=== PATIENT | male | born 1960 | race Caucasian/White ===

== ENCOUNTER 2018-05-09 19:46 | Outpatient (REF) | payer OTHER, SELFPAY ==
[2018-05-09 20:23] LABS: Bilirubin Negative (Negative); Blood Trace-intact (Negative); Clarity Clear; Glucose Negative (Negative); Ketones Negative (Negative); Leukocyte Esterase Negative (Negative); Nitrite Negative (Negative); Specific Gravity 1.025 (1.005-1.025); Urobilinogen 0.2 EU/dL (Up TO 0.2)
[2018-05-09 20:39] LABS: RBC 0-2 (0-2); WBC 0-2 HPF (0-5)
[2018-05-09 20:40] LABS: Bacteria Negative HPF (Negative); C & S Indicated? No; Casts Negative LPF (Negative); Crystals Negative HPF (Negative); Epithelial Cells Rare HPF (Negative); Mucus Negative (Negative)
== END 2018-05-09 20:06 ==
LOC: LBN 19:46
PROVIDERS: PCP Family Medicine; Visit Provider Nurse Practitioner Family
DX: K62.89 Other specified diseases of anus and rectum (principal)
CPT/HCPCS: 81003; 81015; 87086

== ENCOUNTER 2018-07-04 16:02 | Inpatient (IN) | payer OTHER, SELFPAY ==
[2018-07-04] VITALS (34 sets, daily range): BP systolic 93–130; BP diastolic 46–76; PULSE 68–122; RESP 11–30; TEMP 31–38.2; O2SAT 84–99
--- NOTE | 2018-07-04 07:05 | W.COLOREPORT ---
Date of service: 07/04/18 Time of Service: 12:13 Colonoscopy Report Date of procedure: 07/04/18 Pre-op diagnosis general: Colon Cancer screening Post-op diagnosis procedure note: other (Diverticulosis/ descending colon polyp/ ascending colon lipoma) Procedure: Colonoscopy with polypectomy with cold forceps Surgeon: Macey Luna Anesthesia proc note operative: MAC (Maryuri Fairchild CRNA) Estimated blood loss (mL): 3 Pathology: other (Descending colon polyp) Complications: None Disposition: same day Indications: Mr. Umaña is a pleasant 58 year old male who was seen in the office for a screening colonoscopy. Risks, benefits and complications have been reviewed. Complications include but are not limited to bleeding, pain, perforation, missed small lesion/polyp, sore throat, aspiration and adverse reaction to the medications. Questions were entertained and answered to their satisfaction and they wished to proceed. No guarantees were given or implied. Prep: Miralax/Dulcolax Procedure Start Time: 12:13 Procedure End Time: 12:42 Retraction Time: 19 Findings: Ascending colon lipoma Descending colon polyp Sigmoid diverticulosis Procedure Description: After informed consent was obtained the patient was taken to the procedure room and placed in a left decubitous position. Monitors were applied and a time out was done. The patients name, date of , procedure, allergies to medications and metal in their body was reviewed. The patient was then sedated. Once sedated and comfortable a rectal exam was done. External exam was normal. Internal exam revealed a normal sphincter tone and no palpable masses. The prostate was smooth. The scope was then introduced and retro-flexed. No internal hemorrhoids were identified. The scope was then advanced to the cecum without difficulty. The TI and appendiceal orifice were identified. The prep was adequate. The scope was then slowly retracted over 19 minutes back into the rectum. Polyps were removed in the descending colon. There was an ascending colon lipoma and there was mild sigmoid diverticulosis. The scope was removed and the patient was woken up and taken back to Same day surgery in stable condition. The patient tolerated the procedure well and there were no immediate complications. Follow up: The patient should follow up in 3-5 years unless they develop changes in bowel habits or other new gastrointestinal complaints.
--- NOTE | 2018-07-04 07:07 | W.PM.DSUDISC ---
Discharge Plan Disposition Patient Disposition: HOME Condition: Good Discharge Details Reason For Visit: Colon Cancer Screening Attending Provider: Macey Luna Primary Care Provider: Elena Bullock Home Meds and New Rx's Prescriptions: Continued Centrum Silver Ultra Men's 300-600-300 mcg tablet 1 tab PO DAILY RF: 0 Discharge Instructions Instructions: Colonoscopy (DC) Additional Instructions: Findings: 1 polyp Diverticulosis Follow up: 3-5 years Please call if you develop: fevers >101.5 Nausea or Vomiting Abdominal pain that is not transient DAY SURGERY UNIT POST COLONOSCOPY INSTRUCTIONS 1. Because there will be medication in your system for the next 24 hours, you may feel a little sleepy. Your coordination will be affected. Therefore: a. Do not drive or operate dangerous equipment for 24 hours. b. Do not drink alcohol beverages for 24 hours (not even beer). c. Plan to go home and rest for the day. 2. Generally there are no restrictions on your activity after a day or so has gone by, but you may feel a bit fatigued for a few days. 3 After you arrive home you may have a light meal and return to a normal diet as you can tolerate it without feeling sick to your stomach. 4. After surgery, you may feel pain or discomfort. This should be only transient, but if it persists please contact your doctor. 5. If there are any questions regarding the findings of your procedure, please feel free to contact your doctor. 6. If you are unable to contact your doctor with a problem, contact the hospital at [phone]. 7. Continue all your regular medications unless directed otherwise. I understand the above instructions and have no questions. Signature of Patient or Responsible Adult Escort Date/Time Name of Responsible Adult Escort Signature of Nurse Date/Time Activity:: Activity as Tolerated Diet:: High Fiber diet Discharge Orders Discharge Orders: Discharge Order (Routine); Ordered 07/04/18 Ordered By: Macey Luna DS: Diagnosis Discharge Diagnosis (1) S/P colonoscopy: Status: Acute (2) Colorectal polyps: Status: Acute (3) Diverticulosis: Status: Acute
[2018-07-04] MEDS: Lactated Ringers 1,000 ML 80 ML IV ×2 (09:50→15:48)
--- NOTE | 2018-07-04 12:38 | BOWEL_PTH ---
PATIENT: Zachery Whittaker LOC: ICU U#:[id number] AGE/SX: 58/M ROOM: ICU.222 RE07/04/[address]: Macey Luna MD : 1960 BED: A DIS: 07/05/2018 SPEC #: [id number] RECD: 07/04/18 17:58 STATUS: KALLIE REQ #: [id number] RACHEL: 07/04/18 12:[address]: Mcaey Luna DEPT: Surgical Specimen RECD BY: Jory Fink ENTERED: 07/04/18 17:58 SP TYPE: Bowel OTHR DR: CLAIRE Noble Tissues: 1 - BIOPSY BOWEL Procedures: GROSS AND MICRO LEVEL 4 Comments: [id number]
[2018-07-04] MEDS: Albuterol/Ipratropium 3 ML UPD VIAL (14:03)
--- NOTE | 2018-07-04 15:01 | DI.RAD_ITS ---
SYMPTOMS/DIAGNOSIS: HYPOXEMIA PORTABLE CHEST: There are no prior comparison exams. The heart size is normal. The lungs are suboptimally inflated. There is a left-sided infiltrate, denser at the lung base. The right lung is grossly clear. No effusions are visible. IMPRESSION: Left-sided infiltrate. The findings could represent aspiration pneumonia.
[2018-07-04 15:33] LABS: BE -2.8 mmol/L (-3-3); HCO3 22 mmol/L (22-28); pCO2 34 mmHg (34-47); pH 7.41 (7.35-7.45); pO2 59 mmHg (83-108); sO2 90 % (94-98); tCO2 19 mmol/L (22-29)
[2018-07-04 15:34] LABS: FIO2 Simple Mask %; FIO2L 9 L; Site Left Radial
[2018-07-04] MEDS: Hydrocortisone SOD SUC. 100 MG VIAL 150 MG IVP (15:35)
[2018-07-04] MEDS: LEVOFLOXACIN 500 MG/100 ML BAG 100 MG IVPB (15:48)
[2018-07-04] MEDS: Normal Saline Flush 10 ML SYR IV ×2 (16:00→22:57)
[2018-07-04] MEDS: MetroNIDAZOLE 500 MG/100 ML BAG 100 MG IVPB ×2 (16:21→22:39)
--- NOTE | 2018-07-04 16:26 | W.PM.HP.N ---
Date of service: 07/04/18 Time of Service: 16:26 Assessment and Plan (1) Postprocedural aspiration pneumonitis: Current visit: Yes Status: Acute P\\ Admit to ICU on high flow nasal canula Diet: regular Resp: Solumedrol, Flagyl and levaquin Duonebs and albuterol updrafts Activity as tolerated Appreciate the assistance of the hospitalist team with this patient. History of Present Illness Chief Complaint: hypoxemia Narrative: Mr. Umaña is a pleasant 58-year-old gentleman who came to the hospital today for a screening colonoscopy. Towards the end of his colonoscopy he started to cough and jaw thrust had to be done for him to breathe. Once he woke up from the propofol sedation he was coughing and his sats were in the 80s. He was taken to PACU and placed on a mask on 8 L of oxygen bringing his saturations into the high 80s low 90s. He was noted to be wheezing and so he was given an albuterol and DuoNeb treatment by the anesthesia provider. Patient continued to struggle to keep his saturations up he otherwise felt fine. He is not tachycardic. He has no known history of COPD, emphysema or asthma. Hospitalist was consulted. Patient was started on an incentive spirometer as well. Without much improvement in his saturation the decision was made to admit the patient. Review of Systems Constitutional Denies fever(s) Cardiovascular Denies chest pain, Denies chest pain at rest, Denies chest pain with activity, Denies rapid heart rate and Denies irregular heart rhythm Respiratory Reports as per HPI Gastrointestinal Reports system reviewed and no additional complaints, except as docu [facility] Medical History Diverticulosis (Acute) Colorectal polyps (Acute) Surgical History S/P colonoscopy (Acute ~07/04/18) Family History Mother No problems noted. Father Lung disease Sister Crohns disease Sister No problems noted. Brother No problems noted. Grandfather Heart disease Grandfather No problems noted. Grandmother No problems noted. Grandmother No problems noted. Social History Smoking/Tobacco Use Status: Never alcohol intake: current alcohol intake frequency: 0-2 drinks per day Alcohol type: beer details: up to 6 drinks on weekends substance use type: does not use Meds Home Medications Medication Instructions Recorded Confirmed Type [id number] acid 300 1 tab PO DAILY 05/09/18 07/04/18 History mcg-lycopene 600 mcg-lutein 300 mcg tablet Allergies Allergy/AdvReac Type Severity Reaction Status Date / Time amoxicillin trihydrate AdvReac Severe Jaundice Unverified 07/04/18 09:41 [From Augmentin] potassium clavulanate AdvReac Severe Jaundice Unverified 07/04/18 09:41 [From Augmentin] Exam Const General: cooperative, comfortable and no acute distress Orientation: alert and oriented x3 Resp Effort & Inspection: normal respiratory effort Auscultation: wheezes Cardio Rate: tachycardic Rhythm: regular rhythm Heart Sounds: no gallops, no murmurs and no rubs GI Inspection: normal to inspection Palpation: soft and nontender Results Labs : 07/04/18 16:05 07/04/18 16:05 Laboratory Results - last 24 hr 07/04/18 15:25 Sample Site Left radial pCO2 34 pO2 59 L O2 Saturation 90 L ABG pH 7.41 ABG HCO3 22 ABG Total CO2 19 L ABG Base Excess -2.8 Oxygen Liter Flow 9 FiO2 Simple mask Last Vital Signs Temp 98.6 F 07/04/18 15:25 Pulse 112 H 07/04/18 15:25 Resp 30 H 07/04/18 15:25 BP 107/52 L 07/04/18 15:25 Pulse Ox 93 L 07/04/18 16:10
--- NOTE | 2018-07-04 16:59 | W.MEDCONSULT ---
Date of service: 07/04/18 Time of Service: 17:00 Assessment and Plan (1) Acute respiratory failure with hypoxia: Current visit: Yes Status: Acute Due aspiration pneumonia/pneumonitis. I feel at this point the patient would do best with heated humidified high flow NC. Wean O2 as tolerated as we are treating pneumonia/pneumonitis (2) Postprocedural aspiration pneumonitis: Current visit: Yes Status: Acute Treat with levaquin + flagyl, IV steroids, nebs. (3) Alcohol abuse: Current visit: Yes Status: Chronic s/p IV Thiamine x1. Agree with banana bag. put on CIWA. (4) Pancytopenia: Current visit: Yes Status: Chronic Follows at [facility] Hem/onc. CBC is pending at this time. (5) DVT prophylaxis: Current visit: Yes Status: Acute Lovenox - may have to be d/c'ed if plts low History of Present Illness Chief Complaint: Low oxygen saturations post colonoscopy Narrative: Mr Umaña is a 58 year old male with PMHx of diverticulosis and colorectal ca who underwent colonoscopy today whom we were asked to see due to a post-procedural hypoxia. The patient was sedated with propofol for the procedure, not requiring intubation. His O2 sats post-procedure were in the 80's. There was a cough observed during procedure. He required 8 L of O2 by face mask to get his O2 sats to the 90's. He required several nebulizer treatments to stop wheezing. He denied feeling short of breath, but did feel cold. He is febrile. His CXR is showing L-sided aspiration pneumonia. Consults Consult date: 07/04/18 Requesting physician: Macey Luna Review of Systems Review of Systems All systems reviewed & are unremarkable except as noted in HPI and below (no leg edema) PFSH Medical History Diverticulosis (Acute) Colorectal polyps (Acute) Macrocytic anemia (Acute) Pancytopenia (Acute) Surgical History S/P colonoscopy (Acute ~07/04/18) Family History Mother No problems noted. Father Lung disease Sister Crohns disease Sister No problems noted. Brother No problems noted. Grandfather Heart disease Grandfather No problems noted. Grandmother No problems noted. Grandmother No problems noted. Social History Smoking/Tobacco Use Status: Never alcohol intake: current alcohol intake frequency: 0-2 drinks per day Alcohol type: beer details: up to 6 drinks on weekends substance use type: does not use Exam Narrative Exam Narrative: General: Obese male, seen in PACU, tremulous, covered in blankets Neurological: A&OX3, no focal deficits Psychiatric: appropriate speech pattern/content Skin: no bruising/rashes notes HEENT: EOMI, MMM, no JVD or goiter Cardiovascular: RRR, tachycardic, ?SONG Lungs: crackles at L base Gastrointestinal: Abdomen soft, nontender, nondistended Genitourinary: deferred Extremities: no edema, clubbing, or cyanosis of BLE's Results Last Vital Signs Temp 37.2 C 07/04/18 16:57 Pulse 112 H 07/04/18 16:57 Resp 30 H 07/04/18 16:57 BP 113/62 07/04/18 16:57 Pulse Ox 97 07/04/18 16:57 Labs : 07/04/18 16:05 07/04/18 16:05 Laboratory Results - last 24 hr 07/04/18 15:25 Sample Site Left radial pCO2 34 pO2 59 L O2 Saturation 90 L ABG pH 7.41 ABG HCO3 22 ABG Total CO2 19 L ABG Base Excess -2.8 Oxygen Liter Flow 9 FiO2 Simple mask Imaging Additional studies: CXR: Left-sided infiltrate. The findings could represent aspiration pneumonia.
--- NOTE | 2018-07-04 17:04 | MCONE_ITS ---
Date of service: 07/04/18 Time of Service: 17:00 Assessment and Plan (1) Acute respiratory failure with hypoxia: Current visit: Yes Status: Acute Due aspiration pneumonia/pneumonitis. I feel at this point the patient would do best with heated humidified high flow NC. Wean O2 as tolerated as we are treating pneumonia/pneumonitis (2) Postprocedural aspiration pneumonitis: Current visit: Yes Status: Acute Treat with levaquin + flagyl, IV steroids, nebs. (3) Alcohol abuse: Current visit: Yes Status: Chronic s/p IV Thiamine x1. Agree with banana bag. put on CIWA. (4) Pancytopenia: Current visit: Yes Status: Chronic Follows at [facility] Hem/onc. CBC is pending at this time. (5) DVT prophylaxis: Current visit: Yes Status: Acute Lovenox - may have to be d/c'ed if plts low History of Present Illness Chief Complaint: Low oxygen saturations post colonoscopy Narrative: Mr Umaña is a 58 year old male with PMHx of diverticulosis and colorectal ca who underwent colonoscopy today whom we were asked to see due to a post-procedural hypoxia. The patient was sedated with propofol for the procedure, not requiring intubation. His O2 sats post-procedure were in the 80's. There was a cough observed during procedure. He required 8 L of O2 by face mask to get his O2 sats to the 90's. He required several nebulizer treatments to stop wheezing. He denied feeling short of breath, but did feel cold. He is febr ile. His CXR is showing L-sided aspiration pneumonia. Consults Consult date: 07/04/18 Requesting physician: Macey Luna Review of Systems Review of Systems All systems reviewed & are unremarkable except as noted in HPI and below (no leg edema) PFSH Medical History Diverticulosis (Acute) Colorectal polyps (Acute) Macrocytic anemia (Acute) Pancytopenia (Acute) Surgical History S/P colonoscopy (Acute ~07/04/18) Family History Mother No problems noted. Father Lung disease Sister Crohns disease Sister No problems noted. Brother No problems noted. Grandfather Heart disease Grandfather No problems noted. Grandmother No problems noted. Grandmother No problems noted. Social History Smoking/Tobacco Use Status: Never alcohol intake: current alcohol intake frequency: 0-2 drinks per day Alcohol type: beer details: up to 6 drinks on weekends substance use type: does not use Exam Narrative Exam Narrative: General: Obese male, seen in PACU, tremulous, covered in blankets Neurological: A&OX3, no focal deficits Psychiatric: appropriate speech pattern/content Skin: no bruising/rashes notes HEENT: EOMI, MMM, no JVD or goiter Cardiovascular: RRR, tachycardic, ?SONG Lungs: crackles at L base Gastrointestinal: Abdomen soft, nontender, nondistended Genitourinary: deferred Extremities: no edema, clubbing, or cyanosis of BLE's Results Last Vital Signs Temp 37.2 C 07/04/18 16:57 Pulse 112 H 07/04/18 16:57 Resp 30 H 07/04/18 16:57 BP 113/62 07/04/18 16:57 Pulse Ox 97 07/04/18 16:57 Labs : 07/04/18 16:05 07/04/18 16:05 Laboratory Results - last 24 hr 07/04/18 15:25 Sample Site Left radial pCO2 34 pO2 59 L O2 Saturation 90 L ABG pH 7.41 ABG HCO3 22 ABG Total CO2 19 L ABG Base Excess -2.8 Oxygen Liter Flow 9 FiO2 Simple mask Imaging Additional studies: CXR: Left-sided infiltrate. The findings could represent aspiration pneumonia.
[2018-07-04] MEDS: THIAMINE 100 MG in Normal Saline 100 ML 200 MG IVPB (17:09)
[2018-07-04] MEDS: MAGNESIUM SULFATE 8.12 MEQ, MULTIVITAMIN 10 ML, THIAMINE 100 MG, FOLIC ACID 1 MG in Nor... 168.867 MG IV (17:19)
[2018-07-04 17:33] LABS: Lactate-non-spesis 3.5 mmol/l (0.6-1.4)
[2018-07-04 17:34] LABS: Abs Immature Grans 0.01 k/cumm (0.0-0.09); Absolute Basophil Count 0.01 k/cumm (0.0-0.2); Absolute Lymphocyte Count 0.26 k/cumm (1.2-3.4); Absolute Monocyte Count 0.46 k/cumm (0.11-0.7); Absolute Neutrophil Count 6.11 k/cumm (1.2-6.7); Basophils % 0.1; HCT 40.7 % (40.0-50.0); HGB 13.8 g/dL (13.5-17.5); Immature Grans % 0.1; Lymphocytes % 3.8; Mean Corp. HGB Concentration 33.9 g/dL (32.0-36.0); Mean Corpuscular Hemoglobin 33.3 pg (27.0-33.0); Mean Corpuscular Volume 98.3 fL (80-95); Mean Platelet Volume 10.2 fL (8.0-11.0); Monocytes % 6.7; Neutrophils % 89.3; Platelet Count 135 x1000/uL (130-400); RBC 4.14 m/cumm (4.50-6.00); RBC Distribution Width 13.4 % (11.8-14.1); White Blood Cell Count 6.85 k/cumm (4.4-10.8)
[2018-07-04] MEDS: Albuterol/Ipratropium 3 ML UPD VIAL UPD (19:14)
[2018-07-04] MEDS: Pantoprazole 40 MG VIAL IVP (22:39)
[2018-07-04] MEDS: methylPREDNISolone SUCC 125 MG VIAL 60 MG IVP (22:39)
[2018-07-05] VITALS (25 sets, daily range): BP systolic 92–129; BP diastolic 44–68; PULSE 63–93; RESP 2–24; TEMP 36.6–36.9; O2SAT 92–97
[2018-07-05 01:03] LABS: Anion Gap 14.6 mmol/L (3-11); BUN 17 mg/dL (7-18); CO2 21.4 mmol/L (21.0-32.0); CREATININE 1.12 mg/dL (0.70-1.30); Chloride 102 mmol/L (98-107); Glucose 153 mg/dL (70-100); Magnesium 1.4 mg/dL (1.8-2.4); Potassium 3.2 mmol/L (3.5-5.1); Sodium 138 mmol/L (136-145)
[2018-07-05 01:04] LABS: Troponin I < 0.02 ng/mL (0.00-0.06)
[2018-07-05] MEDS: Albuterol/Ipratropium 3 ML UPD VIAL UPD ×3 (03:07→11:48)
[2018-07-05] MEDS: Normal Saline Flush 10 ML SYR IV ×2 (03:08→13:46)
[2018-07-05] MEDS: methylPREDNISolone SUCC 125 MG VIAL 60 MG IVP ×3 (03:08→13:47)
[2018-07-05] MEDS: MetroNIDAZOLE 500 MG/100 ML BAG 100 MG IVPB ×2 (03:26→10:43)
[2018-07-05] MEDS: Lactated Ringers 1,000 ML 80 ML IV (05:11)
[2018-07-05 07:00] LABS: Abs Immature Grans 0.01 k/cumm (0.0-0.09); Absolute Lymphocyte Count 0.42 k/cumm (1.2-3.4); Absolute Monocyte Count 0.18 k/cumm (0.11-0.7); Absolute Neutrophil Count 9.96 k/cumm (1.2-6.7); HGB 12.8 g/dL (13.5-17.5); Immature Grans % 0.1; Mean Corp. HGB Concentration 33.7 g/dL (32.0-36.0); Mean Corpuscular Hemoglobin 33.2 pg (27.0-33.0); Mean Corpuscular Volume 98.7 fL (80-95); Mean Platelet Volume 10.2 fL (8.0-11.0); Monocytes % 1.7; Neutrophils % 94.2; Platelet Count 128 x1000/uL (130-400); RBC 3.85 m/cumm (4.50-6.00); RBC Distribution Width 13.3 % (11.8-14.1); White Blood Cell Count 10.57 k/cumm (4.4-10.8)
[2018-07-05 07:11] LABS: Anion Gap 8.9 mmol/L (3-11); BUN 14 mg/dL (7-18); CO2 25.1 mmol/L (21.0-32.0); Calcium 8.7 mg/dL (8.5-10.1); Chloride 104 mmol/L (98-107); Glucose 180 mg/dL (70-100); Magnesium 1.7 mg/dL (1.8-2.4); Potassium 3.7 mmol/L (3.5-5.1); Sodium 138 mmol/L (136-145)
[2018-07-05 07:49] LABS: BE 0.4 mmol/L (-3-3); HCO3 25 mmol/L (22-28); pCO2 36 mmHg (34-47); pH 7.44 (7.35-7.45); pO2 69 mmHg (83-108); sO2 94 % (94-98); tCO2 22 mmol/L (22-29)
[2018-07-05 07:50] LABS: FIO2L Nasal Cannula L; Site Left Radial
[2018-07-05 07:51] LABS: FIO2 28 %
--- NOTE | 2018-07-05 08:14 | DI.RAD_ITS ---
SYMPTOM/DIAGNOSIS: ASPIRATION PNEUMONITIS PORTABLE AP CHEST at 0805 hours: The examination is compared with radiograph obtained yesterday. The previously described left sided intrapulmonary infiltrates are again noted. There has been little interval change in comparison with yesterday's examination. Right lung remains clear. IMPRESSION: No gross interval change in left sided infiltrates.
--- NOTE | 2018-07-05 09:00 | W.PM.PROGNOT ---
Date of Service Date of service: 07/05/18 Time of Service: 08:00 Assessment and Plan (1) Postprocedural aspiration pneumonitis: Current visit: Yes Status: Acute P\\ Chest XRay- Pending Diet: regular Resp: Solumedrol, Flagyl and levaquin Duonebs and albuterol updrafts Currently on 1L of 02 with SP02 94%, will slowly wean down supplemental 02. Continue use of incentive spirometer Activity as tolerated. Encouraged sitting up in the chair and ambulating. Disposition- Possible D/C home later today Subjective Interval history since last seen: I am feeling pretty good today, even though I didn't sleep much. He reports that he has had mild coughing which has progressively improved over night. He has been using the incentive spirometer. Exam Const General: cooperative, healthy appearing and comfortable Orientation: alert and oriented x3 Resp Effort & Inspection: normal respiratory effort, no audible wheezes and cough (intermittent) Objective Objective Clinical Data: Abnormal lab results 07/04/18 07/04/18 07/04/18 Range/Units 15:25 17:22 17:22 RBC 4.14 L (4.50-6.00) m/cumm Hgb (13.5-17.5) g/dL Hct (40.0-50.0) % MCV 98.3 H (80-95) fL MCH 33.3 H (27.0-33.0) pg Plt Count (130-400) x1000/uL Absolute Neutrophils (1.2-6.7) k/cumm Absolute Lymphocytes 0.26 L (1.2-3.4) k/cumm pO2 59 L (83-108) mmHg O2 Saturation 90 L (94-98) % ABG Total CO2 19 L (22-29) mmol/L Potassium 3.2 L (3.5-5.1) mmol/L Anion Gap 14.6 H (3-11) mmol/L Glucose 153 H (70-100) mg/dL Lactate (0.6-1.4) mmol/l Magnesium 1.4 L (1.8-2.4) mg/dL 07/04/18 07/05/18 07/05/18 Range/Units 17:22 06:40 06:40 RBC 3.85 L (4.50-6.00) m/cumm Hgb 12.8 L (13.5-17.5) g/dL Hct 38.0 L (40.0-50.0) % MCV 98.7 H (80-95) fL MCH 33.2 H (27.0-33.0) pg Plt Count 128 L (130-400) x1000/uL Absolute Neutrophils 9.96 H (1.2-6.7) k/cumm Absolute Lymphocytes 0.42 L (1.2-3.4) k/cumm pO2 (83-108) mmHg O2 Saturation (94-98) % ABG Total CO2 (22-29) mmol/L Potassium (3.5-5.1) mmol/L Anion Gap (3-11) mmol/L Glucose 180 H (70-100) mg/dL Lactate 3.5 H (0.6-1.4) mmol/l Magnesium 1.7 L (1.8-2.4) mg/dL 07/05/18 Range/Units 07:30 RBC (4.50-6.00) m/cumm Hgb (13.5-17.5) g/dL Hct (40.0-50.0) % MCV (80-95) fL MCH (27.0-33.0) pg Plt Count (130-400) x1000/uL Absolute Neutrophils (1.2-6.7) k/cumm Absolute Lymphocytes (1.2-3.4) k/cumm pO2 69 L (83-108) mmHg O2 Saturation (94-98) % ABG Total CO2 (22-29) mmol/L Potassium (3.5-5.1) mmol/L Anion Gap (3-11) mmol/L Glucose (70-100) mg/dL Lactate (0.6-1.4) mmol/l Magnesium (1.8-2.4) mg/dL Vital Signs Temperature 37.2 C 07/04/18 23:00 Temperature Source Tympanic 07/04/18 23:00 Pulse 73 07/05/18 08:00 Pulse Rhythm Regular 07/04/18 09:25 Pulse 72 07/05/18 08:00 Respiratory Rate 22 07/05/18 08:00 Respiratory Effort Non-Labored 07/04/18 23:00 Respiratory Depth Normal 07/04/18 23:00 Respiratory Pattern Normal 07/04/18 23:00 Blood Pressure 118/56 L 07/05/18 08:00 Blood Pressure Mean 70 07/05/18 08:00 Pulse Oximetry 92 L 07/05/18 08:00 Respiratory End-tidal CO2 31 07/04/18 15:25 Oxygen Delivery Method Nasal Cannula 07/04/18 23:00 Oxygen Flow Rate 3 07/04/18 23:00 Fraction of Inspired Oxygen (FIO2) 42 07/04/18 18:00 Pain Level 0 07/04/18 23:00 Intake & Output 07/04/18 07/04/18 07/05/18 11:59 23:59 11:59 Intake Total 2291.2 / 2291.2 972 / 972 Output Total 600 / 600 450 / 450 Balance 1691.2 / 1691.2 522 / 522 Weight 85.275 kg 85.275 kg Intake: IV 2051.2 / 2051.2 972 / 972 Oral 240 / 240 Output: Urine 600 / 600 450 / 450 Other: Urine Color Light Izabel Light Izabel Urine Appearance Clear Clear Urine Odor None None Comment VOIDED IN URINAL Emesis Description None Voiding Methods Urinal Urinal Laboratory Results WBC 10.57 k/cumm (4.4-10.8) D 07/05/18 06:40 RBC 3.85 m/cumm (4.50-6.00) L 07/05/18 06:40 Hgb 12.8 g/dL (13.5-17.5) L 07/05/18 06:40 Hct 38.0 % (40.0-50.0) L 07/05/18 06:40 MCV 98.7 fL (80-95) H 07/05/18 06:40 MCH 33.2 pg (27.0-33.0) H 07/05/18 06:40 MCHC 33.7 g/dL (32.0-36.0) 07/05/18 06:40 RDW 13.3 % (11.8-14.1) 07/05/18 06:40 Plt Count 128 x1000/uL (130-400) L 07/05/18 06:40 MPV 10.2 fL (8.0-11.0) 07/05/18 06:40 Immature Gran % 0.1 07/05/18 06:40 Neutrophils % 94.2 07/05/18 06:40 Lymphocytes % 4.0 07/05/18 06:40 Monocytes % 1.7 07/05/18 06:40 Eosinophils % 0.0 07/05/18 06:40 Basophils % 0.0 07/05/18 06:40 Absolute Neutrophils 9.96 k/cumm (1.2-6.7) H 07/05/18 06:40 Absolute Lymphocytes 0.42 k/cumm (1.2-3.4) L 07/05/18 06:40 Absolute Monocytes 0.18 k/cumm (0.11-0.7) 07/05/18 06:40 Absolute Eosinophils 0.00 k/cumm (0.0-0.7) 07/05/18 06:40 Absolute Basophils 0.00 k/cumm (0.0-0.2) 07/05/18 06:40 Sample Site Left radial 07/05/18 07:30 pCO2 36 mmHg (34-47) 07/05/18 07:30 pO2 69 mmHg (83-108) L 07/05/18 07:30 O2 Saturation 94 % (94-98) 07/05/18 07:30 ABG pH 7.44 (7.35-7.45) 07/05/18 07:30 ABG HCO3 25 mmol/L (22-28) 07/05/18 07:30 ABG Total CO2 22 mmol/L (22-29) 07/05/18 07:30 ABG Base Excess 0.4 mmol/L (-3-3) 07/05/18 07:30 Oxygen Liter Flow Nasal cannula L 07/05/18 07:30 FiO2 28 % 07/05/18 07:30 Sodium 138 mmol/L (136-145) 07/05/18 06:40 Potassium 3.7 mmol/L (3.5-5.1) 07/05/18 06:40 Chloride 104 mmol/L (98-107) 07/05/18 06:40 Carbon Dioxide 25.1 mmol/L (21.0-32.0) 07/05/18 06:40 Anion Gap 8.9 mmol/L (3-11) 07/05/18 06:40 BUN 14 mg/dL (7-18) 07/05/18 06:40 Creatinine 0.90 mg/dL (0.70-1.30) 07/05/18 06:40 Estimated GFR/1.73 m2 >= 60.00 (mL/min/1.73m2) 07/05/18 06:40 Glucose 180 mg/dL (70-100) H 07/05/18 06:40 Lactate 3.5 mmol/l (0.6-1.4) H 07/04/18 17:22 Calcium 8.7 mg/dL (8.5-10.1) 07/05/18 06:40 Magnesium 1.7 mg/dL (1.8-2.4) L 07/05/18 06:40 Troponin I < 0.02 ng/mL (0.00-0.06) 07/04/18 17:22
--- NOTE | 2018-07-05 09:59 | PDOC.CMIN ---
Care Management Initial Assess REASON FOR HOSPITALIZATION:: Aspiration Pnemonitis PAST MEDICAL HISTORY/PAST SURGICAL HISTORY:: Diverticulosis and Colorectal cancer PREVIOUS FUNCTIONAL STATUS/SOCIAL/FAMILY SUPPORTS:: Zachery resides with his significant other, Julia in [place], [place]. 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 Zachery underwent colonoscopy yesterday and appears to have had a aspiration event resulting in post-procedural hypoxia. He was admitted due to continued low saturations, his chest xray showing L-sided aspiration pneumonia. Zachery at baseline is independent with all ADLs in the community. CURRENT FUNCTIONAL STATUS:: Zachery was sitting up in his chair, breathing normally on room air. He answered questions appropriately and shared no concerns at this time. Has patient been provided with information about the portal?: Yes CODE STATUS:: Full Code INSURANCE COVERAGE / FINANCIAL ISSUES:: [employer] CURRENT HOME/COMMUNITY SERVICES/EQUIPMENT:: No current services or equipment. PRIMARY CARE PHYSICIAN:: Elena Bullock POTENTIAL DISCHARGE NEEDS:: Follow up appointments. PATIENT/FAMILY EDUCATION NEEDS:: Review of discharge instructions, discuss Ask Me Three. ANTICIPATED BARRIERS TO DISCHARGE:: None identified. TRANSPORTATION:: Via private vehicle with his significant other, Julia. PLAN:: Zachery will discharge home when ready per MD. He will follow up with his PCP and plan of care as prescribed. No additional services anticpated at this time. He will transport via private vehicle with his significant other, Julia.
--- NOTE | 2018-07-05 10:32 | INITIAL_ITS ---
Care Management Initial Assess REASON FOR HOSPITALIZATION:: Aspiration Pnemonitis PAST MEDICAL HISTORY/PAST SURGICAL HISTORY:: Diverticulosis and Colorectal cancer PREVIOUS FUNCTIONAL STATUS/SOCIAL/FAMILY SUPPORTS:: Zachery resides with his significant other, Julia in [place], [place]. 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 Zachery underwent colonoscopy yesterday and appears to have had a aspiration event resulting in post-procedural hypoxia. He was admitted due to continued low saturations, his chest xray showing L-sided aspiration pneumonia. Zachery at baseline is independent with all ADLs in the community. CURRENT FUNCTIONAL STATUS:: Zachery was sitting up in his chair, breathing normally on room air. He answered questions appropriately and shared no concerns at this time. Has patient been provided with information about the portal?: Yes CODE STATUS:: Full Code INSURANCE COVERAGE / FINANCIAL ISSUES:: GISC/[employer] CURRENT HOME/COMMUNITY SERVICES/EQUIPMENT:: No current services or equipment. PRIMARY CARE PHYSICIAN:: Elena Bullock POTENTIAL DISCHARGE NEEDS:: Follow up appointments. PATIENT/FAMILY EDUCATION NEEDS:: Review of discharge instructions, discuss Ask Me Three. ANTICIPATED BARRIERS TO DISCHARGE:: None identified. TRANSPORTATION:: Via private vehicle with his significant other, Julia. PLAN:: Zachery will discharge home when ready per MD. He will follow up with his PCP and plan of care as prescribed. No additional services anticpated at this time. He will transport via private vehicle with his significant other, Julia.
--- NOTE | 2018-07-05 10:35 | PDOC.CMDIS ---
LACE Index Scoring Tool - Questions: Length of Stay (in days): 2 Acuity (Admit via E.D.?): No E.D. Visits: 0 - Answers: Total Score: 2 Risk of Readmission: Low Risk Care Management Discharge Reason for Hospitalization: Aspiration Pnemonitis Discharge Plan: Zachery will discharge home when ready per MD. He will follow up with his PCP and plan of care as prescribed. No additional services anticpated at this time. He will transport via private vehicle with his significant other, Julia. Patient/Family Education Needs: Review discharge instructions, discuss Ask Me Three.
[2018-07-05] MEDS: MAGNESIUM SULFATE 1 GM/100 ML BAG IVPB (10:56)
--- NOTE | 2018-07-05 11:24 | PHARADMIT ---
Admission Pharmacy Clinical Review ASPIRATION PNEUMONITIS Code Status Full Code Current Weight Wgt- 85.3 kg Renally Cleared and Narrow Therapeutic Index Meds CrCl~ 76 mL/min Meds-OK QTc Value / Action Taken NA BP Control, Fever BP- 110/58 Tmax- 37.2C Electrolytes reviewed Na- 138 K+3.7 Mag- 1.7 DVT Prophylaxis none Lovenox DC'd Opiate Usage / Scheduled Bowel Regimen Ordered No Yes Plt/SCr for Heparin / Enoxaparin Plts- 128 SCr- 0.90 INR for Warfarin NA H/H stable, WBC/Bands H&H- 12.8/38.0 WBC- 10.57 Antibiotic appropriateness Levaquin, Flagyl IV Cultures and Sensitivities Blood, Sputum-Pending Surgical ABX d/c within 24 hr NA DM control / Insulin Dosing BG- 180 Heart Failure (Check EF%) (PACO's, B-Block, Diuretics) none IV to PO Switch No Home Meds Reviewed Yes Home Meds Not Ordered Atarax, Naprosyn, Centrum Comments
--- NOTE | 2018-07-05 13:12 | W.PM.DS.N ---
Date of service: 07/05/18 Time of Service: 13:13 DS: Diagnosis Discharge Diagnosis (1) Postprocedural aspiration pneumonitis: Status: Acute Discharge Plan Disposition Patient Disposition: HOME Condition: Good Discharge Details Reason For Visit: ASPIRATION PNEUMONITIS Admit Date/Time: 07/04/18 16:02 Admit Provider: Macey Luna Attending Provider: Macey Luna [facility] Hospital Course: Patient was admitted for an aspiration event during a colonoscopy. Yesterday during the procedure patient had an episode of coughing and hypoxia requiring admission to the hospital. Patient had a initial chest x-ray that was indicative of an aspiration in the left lung and was placed in the ICU for his care. Patient received oxygen overnight with multiple use of his incentive spirometer. A medicine consult was obtained and he was continued on IV antibiotics as well as nebulizers and oxygen and steroids overnight. The patient this morning was much more comfortable with no signs of hypoxia or respiratory distress. Patient was on a nasal cannula with normal vital signs. In consultation with medicine we felt that he was okay for discharge home he was to continue on Levaquin for 3 more days and Flagyl he was to receive 40 of prednisone milligrams daily for the next 3 days and does not require O2 on ambulation will and will not require this at home. He was to continue with a nebulizer machine with DuoNeb's every 6 as needed. Patient is to follow-up in the office 1-2 weeks after discharge. Home Meds and New Rx's Prescriptions: New levofloxacin 500 mg tablet 500 mg PO DAILY Qty: 3 RF: 0 metronidazole 500 mg tablet 500 mg PO BID Qty: 6 RF: 0 prednisone 20 mg tablet 20 mg PO BID Qty: 6 RF: 0 nebulizers misc .ROUTE .MEDSUPPLY Qty: 1 RF: 0 ipratropium-albuterol 0.5 mg-3 mg(2.5 mg base)/3 mL solution for nebulization 3 ml IH QID Qty: 180 RF: 0 Continued Centrum Silver Ultra Men's 300-600-300 mcg tablet 1 tab PO DAILY RF: 0 Discharge Instructions Instructions: Colonoscopy (DC) Additional Instructions: Findings: 1 polyp Diverticulosis Follow up: 3-5 years Please call if you develop: fevers >101.5 Nausea or Vomiting Abdominal pain that is not transient DAY SURGERY UNIT POST COLONOSCOPY INSTRUCTIONS 1. Because there will be medication in your system for the next 24 hours, you may feel a little sleepy. Your coordination will be affected. Therefore: a. Do not drive or operate dangerous equipment for 24 hours. b. Do not drink alcohol beverages for 24 hours (not even beer). c. Plan to go home and rest for the day. 2. Generally there are no restrictions on your activity after a day or so has gone by, but you may feel a bit fatigued for a few days. 3 After you arrive home you may have a light meal and return to a normal diet as you can tolerate it without feeling sick to your stomach. 4. After surgery, you may feel pain or discomfort. This should be only transient, but if it persists please contact your doctor. 5. If there are any questions regarding the findings of your procedure, please feel free to contact your doctor. 6. If you are unable to contact your doctor with a problem, contact the hospital at [phone]. 7. Continue all your regular medications unless directed otherwise. I understand the above instructions and have no questions. Signature of Patient or Responsible Adult Escort Date/Time Name of Responsible Adult Escort Signature of Nurse Date/Time Referrals: Macey Luna MD [ [facility] STAFF PHYSICIAN] - Activity:: Activity as Tolerated Activity:: Activity as Tolerated Equipment/Supplies:: No Equipment Needed Diet:: High Fiber diet Discharge Orders Discharge Orders: Discharge Order (Routine); Ordered 07/05/18 Ordered By: Pineda Mclain III DS: Data Vitals/I&O Vitals and I&O: Vital Signs Temperature 37.2 C 07/04/18 23:00 Temperature Source Tympanic 07/04/18 23:00 Pulse 66 07/05/18 10:42 Pulse Rhythm Regular 07/04/18 09:25 Pulse 82 07/05/18 10:42 Respiratory Rate 24 07/05/18 10:42 Respiratory Effort Non-Labored 07/04/18 23:00 Respiratory Depth Normal 07/04/18 23:00 Respiratory Pattern Normal 07/04/18 23:00 Blood Pressure 110/58 L 07/05/18 10:42 Blood Pressure Mean 69 07/05/18 10:42 Pulse Oximetry 94 L 07/05/18 11:22 Respiratory End-tidal CO2 31 07/04/18 15:25 Oxygen Delivery Method Room Air 07/05/18 11:22 Oxygen Flow Rate 0 07/05/18 11:22 Fraction of Inspired Oxygen (FIO2) 42 07/04/18 18:00 Pain Level 0 07/04/18 23:00 Intake & Output 07/04/18 07/05/18 07/05/18 23:59 11:59 23:59 Intake Total 2591.2 / 2591.2 2007.333 / 2247.333 240 / 2247.333 Output Total 600 / 600 1325 / 1325 Balance 1990. / 1990. 682.333 / 922.333 240 / 922.333 Weight 85.275 kg Intake: IV 2050.2 / 2050.2 1407.333 / 1407.333 Oral 540 / 540 600 / 840 240 / 840 Output: Urine 600 / 600 1325 / 1325 Other: Urine Color Light Izabel Light Izabel Urine Appearance Clear Clear Urine Odor None None Comment VOIDED IN URINAL Emesis Description None Voiding Methods Urinal Urinal Labs on day of discharge: Labs from last 24 hours 07/05/18 07/05/18 07/05/18 07:30 06:40 06:40 WBC 10.57 D RBC 3.85 L Hgb 12.8 L Hct 38.0 L MCV 98.7 H MCH 33.2 H MCHC 33.7 RDW 13.3 Plt Count 128 L MPV 10.2 Immature Gran % 0.1 Neutrophils % 94.2 Lymphocytes % 4.0 Monocytes % 1.7 Eosinophils % 0.0 Basophils % 0.0 Absolute Neutrophils 9.96 H Absolute Lymphocytes 0.42 L Absolute Monocytes 0.18 Absolute Eosinophils 0.00 Absolute Basophils 0.00 Sample Site Left radial pCO2 36 pO2 69 L O2 Saturation 94 ABG pH 7.44 ABG HCO3 25 ABG Total CO2 22 ABG Base Excess 0.4 Oxygen Liter Flow Nasal cannula FiO2 28 Sodium 138 Potassium 3.7 Chloride 104 Carbon Dioxide 25.1 Anion Gap 8.9 BUN 14 Creatinine 0.90 Estimated GFR/1.73 m2 >= 60.00 Glucose 180 H Lactate Calcium 8.7 Magnesium 1.7 L Troponin I 07/04/18 07/04/18 07/04/18 17:22 17:22 17:22 WBC 6.85 RBC 4.14 L Hgb 13.8 Hct 40.7 MCV 98.3 H MCH 33.3 H MCHC 33.9 RDW 13.4 Plt Count 135 MPV 10.2 Immature Gran % 0.1 Neutrophils % 89.3 Lymphocytes % 3.8 Monocytes % 6.7 Eosinophils % 0.0 Basophils % 0.1 Absolute Neutrophils 6.11 Absolute Lymphocytes 0.26 L Absolute Monocytes 0.46 Absolute Eosinophils 0.00 Absolute Basophils 0.01 Sample Site pCO2 pO2 O2 Saturation ABG pH ABG HCO3 ABG Total CO2 ABG Base Excess Oxygen Liter Flow FiO2 Sodium 138 Potassium 3.2 L Chloride 102 Carbon Dioxide 21.4 Anion Gap 14.6 H BUN 17 Creatinine 1.12 Estimated GFR/1.73 m2 >= 60.00 Glucose 153 H Lactate 3.5 H Calcium 9.0 Magnesium 1.4 L Troponin I < 0.02 07/04/18 15:25 WBC RBC Hgb Hct MCV MCH MCHC RDW Plt Count MPV Immature Gran % Neutrophils % Lymphocytes % Monocytes % Eosinophils % Basophils % Absolute Neutrophils Absolute Lymphocytes Absolute Monocytes Absolute Eosinophils Absolute Basophils Sample Site Left radial pCO2 34 pO2 59 L O2 Saturation 90 L ABG pH 7.41 ABG HCO3 22 ABG Total CO2 19 L ABG Base Excess -2.8 Oxygen Liter Flow 9 FiO2 Simple mask Sodium Potassium Chloride Carbon Dioxide Anion Gap BUN Creatinine Estimated GFR/1.73 m2 Glucose Lactate Calcium Magnesium Troponin I 07/05/18 09:15 Sputum Sputum Culture - Pending Preliminary micro results at discharge 07/05/18 09:15 Sputum Culture - Pending Sputum FOR[facility] Medical History Diverticulosis (Acute) Colorectal polyps (Acute) Macrocytic anemia (Acute) Pancytopenia (Acute) Surgical History S/P colonoscopy (Acute ~07/04/18) Family History Mother No problems noted. Father Lung disease Sister Crohns disease Sister No problems noted. Brother No problems noted. Grandfather Heart disease Grandfather No problems noted. Grandmother No problems noted. Grandmother No problems noted. Social History Smoking and Tabacco status: Never alcohol intake: current alcohol intake frequency: 0-2 drinks per day Alcohol type: beer details: up to 6 drinks on weekends substance use type: does not use
[2018-07-05] MEDS: LEVOFLOXACIN 500 MG/100 ML BAG 100 MG IVPB (13:45)
--- NOTE | 2018-07-05 15:31 | PGE_ITS ---
Date of Service Date of service: 07/05/18 Time of Service: 11:45 Assessment and Plan (1) Postprocedural aspiration pneumonitis: Current visit: Yes Status: Acute Clinically better. I feel the patient is safe to be discharged home to complete a total of 5 days of levofloxacin, flagyl, prednisone. I also feel he could benefit from nebs at home. (2) Acute respiratory failure with hypoxia: Current visit: Yes Status: Resolved Due aspiration pneumonia/pneumonitis. No longer requiring oxygen (3) Alcohol abuse: Current visit: Yes Status: Chronic No evidence of alcohol withdrawal. I discussed the interactions of flagyl with alcohol with the patient - her verbalized understanding and states he is not going to drink when he arrives home. (4) Pancytopenia: Current visit: Yes Status: Chronic Follows at [facility] [place] Hem/onc. Pancytopenia is mild (5) DVT prophylaxis: Current visit: Yes Status: Acute Lovenox Subjective Interval history since last seen: The patient states he feels better today. Denies dizziness, chest pain, shortness of breath, nausea, vomiting. He is on room air - his ambulatory pulse ox on room air was in the 90's. Exam Narrative Exam Narrative: General: A&Ox3, NAD HEENT: EOMI, MMM Heart: RRR, no m/r/g Lungs: quiet crackles B bases, L>R GI: abdomen is soft, nontender, nondistended Extremities: trace edema BLE's Objective Objective Clinical Data: Abnormal lab results 07/04/18 07/04/18 07/04/18 Range/Units 15:25 17:22 17:22 RBC 4.14 L (4.50-6.00) m/cumm Hgb (13.5-17.5) g/dL Hct (40.0-50.0) % MCV 98.3 H (80-95) fL MCH 33.3 H (27.0-33.0) pg Plt Count (130-400) x1000/uL Absolute Neutrophils (1.2-6.7) k/cumm Absolute Lymphocytes 0.26 L (1.2-3.4) k/cumm pO2 59 L (83-108) mmHg O2 Saturation 90 L (94-98) % ABG Total CO2 19 L (22-29) mmol/L Potassium 3.2 L (3.5-5.1) mmol/L Anion Gap 14.6 H (3-11) mmol/L Glucose 153 H (70-100) mg/dL Lactate (0.6-1.4) mmol/l Magnesium 1.4 L (1.8-2.4) mg/dL 07/04/18 07/05/18 07/05/18 Range/Units 17:22 06:40 06:40 RBC 3.85 L (4.50-6.00) m/cumm Hgb 12.8 L (13.5-17.5) g/dL Hct 38.0 L (40.0-50.0) % MCV 98.7 H (80-95) fL MCH 33.2 H (27.0-33.0) pg Plt Count 128 L (130-400) x1000/uL Absolute Neutrophils 9.96 H (1.2-6.7) k/cumm Absolute Lymphocytes 0.42 L (1.2-3.4) k/cumm pO2 (83-108) mmHg O2 Saturation (94-98) % ABG Total CO2 (22-29) mmol/L Potassium (3.5-5.1) mmol/L Anion Gap (3-11) mmol/L Glucose 180 H (70-100) mg/dL Lactate 3.5 H (0.6-1.4) mmol/l Magnesium 1.7 L (1.8-2.4) mg/dL 07/05/18 Range/Units 07:30 RBC (4.50-6.00) m/cumm Hgb (13.5-17.5) g/dL Hct (40.0-50.0) % MCV (80-95) fL MCH (27.0-33.0) pg Plt Count (130-400) x1000/uL Absolute Neutrophils (1.2-6.7) k/cumm Absolute Lymphocytes (1.2-3.4) k/cumm pO2 69 L (83-108) mmHg O2 Saturation (94-98) % ABG Total CO2 (22-29) mmol/L Potassium (3.5-5.1) mmol/L Anion Gap (3-11) mmol/L Glucose (70-100) mg/dL Lactate (0.6-1.4) mmol/l Magnesium (1.8-2.4) mg/dL Vital Signs Temperature 36.6 C 07/05/18 12:45 Temperature Source Temporal Artery Scan 07/05/18 12:45 Pulse 66 07/05/18 10:42 Pulse Rhythm Regular 07/04/18 09:25 Pulse 82 07/05/18 10:42 Respiratory Rate 24 07/05/18 10:42 Respiratory Effort Non-Labored 07/05/18 12:45 Respiratory Depth Normal 07/05/18 12:45 Respiratory Pattern Normal 07/05/18 12:45 Blood Pressure 110/58 L 07/05/18 10:42 Blood Pressure Mean 69 07/05/18 10:42 Blood Pressure Position Sitting 07/05/18 12:45 Pulse Oximetry 93 L 07/05/18 12:45 Respiratory End-tidal CO2 31 07/04/18 15:25 Oxygen Delivery Method Room Air 07/05/18 12:45 Oxygen Flow Rate 0 07/05/18 12:45 Fraction of Inspired Oxygen (FIO2) 42 07/04/18 18:00 Pain Level 0 07/05/18 12:45 Intake & Output 07/04/18 07/05/18 07/05/18 23:59 11:59 23:59 Intake Total 2591.2 / 2591.2 2408.333 / 2868.333 460 / 2868.333 Output Total 600 / 600 1325 / 1325 Balance 1990.2 / 1990.2 1083.333 / 1543.333 460 / 1543.333 Weight 85.275 kg Intake: IV 2050.2 / 2050.2 1808.333 / 2028.333 220 / 202.333 Oral 540 / 540 600 / 840 240 / 840 Output: Urine 600 / 600 1325 / 1325 Other: Urine Color Light Izabel Light Izabel Urine Appearance Clear Clear Urine Odor None None Comment VOIDED IN URINAL Voids to urinal Emesis Description None Voiding Methods Urinal Urinal Laboratory Results WBC 10.57 k/cumm (4.4-10.8) D 07/05/18 06:40 RBC 3.85 m/cumm (4.50-6.00) L 07/05/18 06:40 Hgb 12.8 g/dL (13.5-17.5) L 07/05/18 06:40 Hct 38.0 % (40.0-50.0) L 07/05/18 06:40 MCV 98.7 fL (80-95) H 07/05/18 06:40 MCH 33.2 pg (27.0-33.0) H 07/05/18 06:40 MCHC 33.7 g/dL (32.0-36.0) 07/05/18 06:40 RDW 13.3 % (11.8-14.1) 07/05/18 06:40 Plt Count 128 x1000/uL (130-400) L 07/05/18 06:40 MPV 10.2 fL (8.0-11.0) 07/05/18 06:40 Immature Gran % 0.1 07/05/18 06:40 Neutrophils % 94.2 07/05/18 06:40 Lymphocytes % 4.0 07/05/18 06:40 Monocytes % 1.7 07/05/18 06:40 Eosinophils % 0.0 07/05/18 06:40 Basophils % 0.0 07/05/18 06:40 Absolute Neutrophils 9.96 k/cumm (1.2-6.7) H 07/05/18 06:40 Absolute Lymphocytes 0.42 k/cumm (1.2-3.4) L 07/05/18 06:40 Absolute Monocytes 0.18 k/cumm (0.11-0.7) 07/05/18 06:40 Absolute Eosinophils 0.00 k/cumm (0.0-0.7) 07/05/18 06:40 Absolute Basophils 0.00 k/cumm (0.0-0.2) 07/05/18 06:40 Sample Site Left radial 07/05/18 07:30 pCO2 36 mmHg (34-47) 07/05/18 07:30 pO2 69 mmHg (83-108) L 07/05/18 07:30 O2 Saturation 94 % (94-98) 07/05/18 07:30 ABG pH 7.44 (7.35-7.45) 07/05/18 07:30 ABG HCO3 25 mmol/L (22-28) 07/05/18 07:30 ABG Total CO2 22 mmol/L (22-29) 07/05/18 07:30 ABG Base Excess 0.4 mmol/L (-3-3) 07/05/18 07:30 Oxygen Liter Flow Nasal cannula L 07/05/18 07:30 FiO2 28 % 07/05/18 07:30 Sodium 138 mmol/L (136-145) 07/05/18 06:40 Potassium 3.7 mmol/L (3.5-5.1) 07/05/18 06:40 Chloride 104 mmol/L (98-107) 07/05/18 06:40 Carbon Dioxide 25.1 mmol/L (21.0-32.0) 07/05/18 06:40 Anion Gap 8.9 mmol/L (3-11) 07/05/18 06:40 BUN 14 mg/dL (7-18) 07/05/18 06:40 Creatinine 0.90 mg/dL (0.70-1.30) 07/05/18 06:40 Estimated GFR/1.73 m2 >= 60.00 (mL/min/1.73m2) 07/05/18 06:40 Glucose 180 mg/dL (70-100) H 07/05/18 06:40 Lactate 3.5 mmol/l (0.6-1.4) H 07/04/18 17:22 Calcium 8.7 mg/dL (8.5-10.1) 07/05/18 06:40 Magnesium 1.7 mg/dL (1.8-2.4) L 07/05/18 06:40 Troponin I < 0.02 ng/mL (0.00-0.06) 07/04/18 17:22 CXR: No gross interval change in left sided infiltrates.
== END 2018-07-05 15:45 | disposition home or self-care (01) | DRG 205 ==
LOC: SUR 16:52 → ICU 21:47
PROVIDERS: Internal Medicine; Admitting Provider Surgery; PCP Nurse Practitioner Family; Visit Provider Surgery
PROC: 0DJD8ZZ Inspection of Lower Intestinal Tract, Via Natural or Artificial Opening Endoscopic (ICD-10-PCS; CPT 45378; principal; 2018-07-04 10:30)
DX: J95.4 Chemical pneumonitis due to anesthesia (principal); J96.01 Acute respiratory failure with hypoxia; D61.818 Other pancytopenia; T41.0X5A Adverse effect of inhaled anesthetics, initial encounter; Y83.8 Other surgical procedures as the cause of abnormal reaction of the patient, or of later complication, without mention of misadventure at the time of the procedure; Z12.11 Encounter for screening for malignant neoplasm of colon; K57.30 Diverticulosis of large intestine without perforation or abscess without bleeding; D12.4 Benign neoplasm of descending colon; D17.5 Benign lipomatous neoplasm of intra-abdominal organs; F10.10 Alcohol abuse, uncomplicated; Z85.038 Personal history of other malignant neoplasm of large intestine
CPT/HCPCS: 45380; 36415; 80048; 82805; 82947; 84520; 87040; 88305; 99232; 99239; 99254; NC; 36600; 71045; 82310; 82374; 82435; 82565; 83605; 83735; 84132; 84295; 84484; 85025; 87070; 87205; 94640; J1720; J1956; J2930; J3475; J7620

== ENCOUNTER 2018-07-10 07:51 | Emergency (ER) | payer OTHER, SELFPAY ==
[2018-07-10] VITALS (42 sets, daily range): BP systolic 100–119; BP diastolic 63–69; PULSE 75–102; RESP 14–42; TEMP 36.7–37; O2SAT 91–96
--- NOTE | 2018-07-10 08:16 | ED.GENADUL_ITS ---
Discharge Plan Disposition Patient Disposition: HOME Condition: Stable Discharge Details Chief Complaint: RespSymp Clinical Impression: Pneumonia Primary Care Provider: Elena Bullock ED Provider: Torie Fernandez Home Meds and New Rx's Prescriptions: New levofloxacin [Levaquin] 750 mg tablet 750 mg PO DAILY Qty: 4 RF: 0 Continued nebulizers misc .ROUTE .MEDSUPPLY Qty: 1 RF: 0 ipratropium-albuterol 0.5 mg-3 mg(2.5 mg base)/3 mL solution for nebulization 3 ml IH QID Qty: 180 RF: 0 No Action prednisone 20 mg tablet 40 mg PO DAILY 5 Days Qty: 10 RF: 0 albuterol sulfate 90 mcg/actuation HFA aerosol inhaler 1 puff IH Q6H PRN (Reason: shortness of breath or wheezing) Qty: 8.5 RF: 4 azithromycin 250 mg tablet 250 mg PO DAILY 5 Days Qty: 6 RF: 0 Discharge Instructions Instructions: Pneumonia (ED) Additional Instructions: Please return immediately to the emergency department if you develop any new or worsening symptoms or if you become otherwise concerned. It is extremely important that you make an appointment to be seen as soon as possible by your primary care doctor in follow-up for this visit. Stand Alone Forms: Work Release Referrals: Elena Bullock NP [Primary Care Provider] - Discharge Data Discharge Date/Time-TO BE ENTERED AT DEPARTURE: 07/10/18 14:20 Medical Decision Making Emeterio Guzman is a 58-year-old man without history of major medical problems who was admitted to the ICU for 1 night last week for aspiration event during r outine colonoscopy, now presented to the emergency department with cough and shortness of breath since his discharge from the hospital on 07/05/18, also with sore throat. On exam patient is well and nontoxic appearing. Examination of his oropharynx is normal. Lungs are clear but with slightly decreased breath sounds throughout bilaterally. Concern for pneumonia versus influenza versus noncardiogenic pulmonary edema versus less likely PE, ACS. Plan for EKG, chest x-ray, screening labs, telemetry, IV fluid hydration. Will monitor and reassess. Patient reports feeling mildly improved after DuoNeb and fluids. Flu swab negative. Chest x-ray shows infiltrate improved from prior 07/04. D-dimer elevated, plan for CT chest. Walking about the emergency department without issue. CT chest shows pneumonia. As patient only received 3 days of Levaquin and is allergic to Augmentin, will plan for 5-day Levaquin course. Ambulatory pulse ox showed saturations 95%. Patient feels very well and would like to go home at this time. No indication for admission. I had a lengthy discussion with the patient regarding return to emergency department precautions, home care, and importance of outpatient follow-up with his primary care doctor. He is also scheduled to see Dr. Gomez in follow-up next week. Patient verbalizes understanding of the plan and is amenable. Medical Records Medical records reviewed: Yes I reviewed the patient's medical records. Lab Data Lab results reviewed: Yes I reviewed the patient's lab results. 07/10/18 09:17 Nasopharynx Influenza Types A,B Antigen - Final Laboratory Tests Range/Units 07/10/18 07/10/18 07/10/18 08:14 08:14 08:14 WBC (4.4-10.8) k/cumm 10.66 RBC (4.50-6.00) m/cumm 4.17 L Hgb (13.5-17.5) g/dL 13.8 Hct (40.0-50.0) % 41.2 MCV (80-95) fL 98.8 H MCH (27.0-33.0) pg 33.1 H MCHC (32.0-36.0) g/dL 33.5 RDW (11.8-14.1) % 13.5 Plt Count (130-400) x1000/uL 165 MPV (8.0-11.0) fL 10.3 Immature Gran % 1.3 Neutrophils % 76.0 Lymphocytes % 14.0 Monocytes % 5.5 Eosinophils % 3.1 Basophils % 0.1 Absolute Neutrophils (1.2-6.7) k/cumm 8.10 H Absolute Lymphocytes (1.2-3.4) k/cumm 1.49 Absolute Monocytes (0.11-0.7) k/cumm 0.59 Absolute Eosinophils (0.0-0.7) k/cumm 0.33 Absolute Basophils (0.0-0.2) k/cumm 0.01 D-Dimer (<500) ng/mlFEU 752 H Sodium (136-145) mmol/L 136 Potassium (3.5-5.1) mmol/L 3.8 Chloride (98-107) mmol/L 99 Carbon Dioxide (21.0-32.0) mmol/L 29.7 Anion Gap (3-11) mmol/L 7.3 BUN (7-18) mg/dL 20 H Creatinine (0.70-1.30) mg/dL 1.04 Estimated GFR/1.73 m2 (mL/min/1.73m2) >= 60.00 Glucose (70-100) mg/dL 120 H Calcium (8.5-10.1) mg/dL 9.3 Total Bilirubin (0.2-1.0) mg/dL 0.9 AST (15-37) U/L 20 ALT (12-78) U/L 27 Alkaline Phosphatase (46-116) U/L 74 Troponin I (0.00-0.06) ng/mL < 0.02 NT-Pro-B Natriuret Pep ( - 299) pg/mL Total Protein (6.4-8.2) g/dL 8.0 Albumin (3.4-5.0) g/dL 3.2 L Range/Units 07/10/18 08:14 WBC (4.4-10.8) k/cumm RBC (4.50-6.00) m/cumm Hgb (13.5-17.5) g/dL Hct (40.0-50.0) % MCV (80-95) fL MCH (27.0-33.0) pg MCHC (32.0-36.0) g/dL RDW (11.8-14.1) % Plt Count (130-400) x1000/uL MPV (8.0-11.0) fL Immature Gran % Neutrophils % Lymphocytes % Monocytes % Eosinophils % Basophils % Absolute Neutrophils (1.2-6.7) k/cumm Absolute Lymphocytes (1.2-3.4) k/cumm Absolute Monocytes (0.11-0.7) k/cumm Absolute Eosinophils (0.0-0.7) k/cumm Absolute Basophils (0.0-0.2) k/cumm D-Dimer (<500) ng/mlFEU Sodium (136-145) mmol/L Potassium (3.5-5.1) mmol/L Chloride (98-107) mmol/L Carbon Dioxide (21.0-32.0) mmol/L Anion Gap (3-11) mmol/L BUN (7-18) mg/dL Creatinine (0.70-1.30) mg/dL Estimated GFR/1.73 m2 (mL/min/1.73m2) Glucose (70-100) mg/dL Calcium (8.5-10.1) mg/dL Total Bilirubin (0.2-1.0) mg/dL AST (15-37) U/L ALT (12-78) U/L Alkaline Phosphatase (46-116) U/L Troponin I (0.00-0.06) ng/mL NT-Pro-B Natriuret Pep ( - 299) pg/mL 30 Total Protein (6.4-8.2) g/dL Albumin (3.4-5.0) g/dL ECG Data Attestation: I personally reviewed and interpreted this ECG (s) as follows: Interpretation: EKG shows sinus rhythm at 93 with normal axis, no STEMI, nondiagnostic EKG HPI General Mode of arrival: ambulatory . Date/Time Provider Initiated Documentation: 07/10/18 08:14 . Limitations to Documentation: no limitations . Information obtained by: patient, RN notes reviewed and old records reviewed . HPI Narrative: Zachery Umaña is a 58-year-old man without history of major medical problems presenting to the emergency department with cough and shortness of breath. Patient reports that on 07/04/18, he had a colonoscopy here to [facility]. He had an apparent aspiration event during his colonoscopy per record review, and he was admitted to the ICU for 1 night on 8 L of oxygen. Patient was discharged home on Levaquin, Flagyl, prednisone, and albuterol nebulizer. Patient reports that he was well and in his usual state of health prior to the procedure. He reports that since returning home from his admission on 07/05/18, he has been more tired than usual. He has also developed a gradually worsening sore throat and nonproductive cough. Patient thinks he had a fever in the past few days, but has not measured his temperature. He denies having any pain other than sore throat. He feels no shortness of breath at rest, but feels more short of breath than usual with exertion. He says he has had some mildly decreased p.o. intake secondary to his throat hurting. He has not had any difficulty swallowing. He denies vomiting, diarrhea, rash. 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 Patient reports he has finished all of his prescriptions that he left the hospital with except for his nebulizer. Related Data Home Medications Medication Instructions Recorded Confirmed ipratropium-albuterol 3 ml IH QID #180 ml 07/05/18 07/13/18 nebulizers #1 each 07/05/18 07/13/18 levofloxacin [Levaquin] 750 mg PO DAILY #4 tab 07/10/18 07/13/18 albuterol sulfate HFA 90 1 puff IH Q6H PRN #8.5 gm 07/13/18 07/13/18 mcg/actuation aerosol inhaler azithromycin 250 mg tablet 250 mg PO DAILY 5 Days #6 tab 07/13/18 07/13/18 prednisone 20 mg tablet 40 mg PO DAILY 5 Days #10 tab 07/13/18 07/13/18 Previous Rx's Medication Instructions Recorded ipratropium-albuterol 3 ml IH QID #180 ml 07/05/18 nebulizers #1 each 07/05/18 levofloxacin [Levaquin] 750 mg PO DAILY #4 tab 07/10/18 albuterol sulfate HFA 90 1 puff IH Q6H PRN #8.5 gm 07/13/18 mcg/actuation aerosol inhaler azithromycin 250 mg tablet 250 mg PO DAILY 5 Days #6 tab 07/13/18 prednisone 20 mg tablet 40 mg PO DAILY 5 Days #10 tab 07/13/18 Allergies Allergy/AdvReac Type Severity Reaction Status Date / Time amoxicillin trihydrate AdvReac Severe Jaundice Verified 07/13/18 09:11 [From Augmentin] potassium clavulanate AdvReac Severe Jaundice Verified 07/13/18 09:11 [From Augmentin] General Stated Complaint: RespSymp MARISA: 3 Review of Systems Review of Systems Constitutional: denies fevers Eyes: denies eye pain ENT: denies facial pain, dental pain, reports sore throat Cardiovascular: denies chest pain, edema Respiratory: reports SOB, cough GI: denies abdominal pain, vomiting, diarrhea : denies flank pain MSK: denies back pain, neck pain, arthralgias, myalgias Skin: denies rash Neuro: denies headaches, numbness, weakness PFSH Medical History Postprocedural aspiration pneumonitis (Acute) Macrocytic anemia (Chronic ~06/2017) Serrated adenoma of colon (Inactive ~06/2018) Sigmoid diverticulosis (Inactive ~06/2018) Acute respiratory failure with hypoxia (Resolved) Pancytopenia (Resolved ~06/2017) Surgical History S/P colonoscopy (Inactive 07/04/18) Social History Smoking and Tabacco status: Never alcohol intake: current alcohol intake frequency: 0-2 drinks per day Alcohol type: beer details: up to 6 drinks on weekends substance use type: does not use Exam Narrative Exam Narrative: Constitutional: well and [id number], pleasant, conversing normally HENT: head atraumatic/normocephalic/normal inspection, mucous membranes moist, normal oropharynx without erythema of the posterior pharynx, no edema or lesion of the oral cavity Eyes: conjunctiva normal, sclera normal, pupils 3mm b/l Neck: no stridor, normal ROM, trachea midline Chest: normal inspection Resp: normal work of breathing, LCTAB, somewhat decreased breath sounds throughout Cardio: normal rate, normal rhythm, no murmur appreciated GI: abdomen soft, non-tender, non-distended Back: normal inspection, no rash Skin: warm, dry, normal color, no rash Neuro: alert, not altered, grossly non-focal, normal tone Ext: no edema, no posterior calf tenderness to palpation Psych: normal mood, normal affect, normal behavior Course Vital Signs Temperature 36.7 C 07/10/18 07:57 Pulse 102 H 07/10/18 07:57 Respiratory Rate 16 07/10/18 07:57 Blood Pressure 119/66 07/10/18 07:57 Pulse Oximetry 94 L 07/10/18 07:57 Temperature 36.7 C 07/10/18 07:57 Temperature Source Temporal Artery Scan 07/10/18 07:57 Pulse 102 H 07/10/18 07:57 Respiratory Rate 16 07/10/18 07:57 Blood Pressure 119/66 07/10/18 07:57 Blood Pressure Position Sitting 07/10/18 07:57 Pulse Oximetry 94 L 07/10/18 07:57 Oxygen Delivery Method Room Air 07/10/18 07:57 Oxygen Flow Rate 0 07/10/18 07:57 Pain Level 0 07/10/18 07:57
--- NOTE | 2018-07-10 08:27 | DI.RAD_ITS ---
SYMPTOM/DIAGNOSIS: COUGH FRONTAL AND LATERAL CHEST: Comparison is made with 07/05/18. There is poor inspiration. The cardiac silhouette appears within normal limits as does the pulmonary vasculature. Since the prior examination, there has been significant improvement in the infiltrate in the left lung with residual infiltrates seen in the left mid and lower lobe. The right lung appears generally clear. No effusions or pneumothoraces are identified. Degenerative changes are seen in the spine. IMPRESSION: Persistent but improved infiltrates in the left lung.
[2018-07-10] MEDS: Normal Saline Flush 10 ML SYR IVP (08:36)
[2018-07-10] MEDS: Albuterol/Ipratropium 3 ML UPD VIAL UPD (08:41)
[2018-07-10] MEDS: Normal Saline 500 ML IV (08:42)
[2018-07-10 08:57] LABS: Abs Immature Grans 0.14 k/cumm (0.0-0.09); Absolute Basophil Count 0.01 k/cumm (0.0-0.2); Absolute Eosinophil Count 0.33 k/cumm (0.0-0.7); Absolute Lymphocyte Count 1.49 k/cumm (1.2-3.4); Absolute Monocyte Count 0.59 k/cumm (0.11-0.7); Basophils % 0.1; Eosinophils % 3.1; HCT 41.2 % (40.0-50.0); HGB 13.8 g/dL (13.5-17.5); Immature Grans % 1.3; Mean Corp. HGB Concentration 33.5 g/dL (32.0-36.0); Mean Corpuscular Hemoglobin 33.1 pg (27.0-33.0); Mean Corpuscular Volume 98.8 fL (80-95); Mean Platelet Volume 10.3 fL (8.0-11.0); Monocytes % 5.5; Platelet Count 165 x1000/uL (130-400); RBC 4.17 m/cumm (4.50-6.00); RBC Distribution Width 13.5 % (11.8-14.1); White Blood Cell Count 10.66 k/cumm (4.4-10.8)
[2018-07-10 09:17] LABS: ALT 27 U/L (12-78); AST 20 U/L (15-37); Albumin 3.2 g/dL (3.4-5.0); Alkaline Phosphatase 74 U/L (46-116); Anion Gap 7.3 mmol/L (3-11); BUN 20 mg/dL (7-18); Bilirubin, Total 0.9 mg/dL (0.2-1.0); CO2 29.7 mmol/L (21.0-32.0); CREATININE 1.04 mg/dL (0.70-1.30); Calcium 9.3 mg/dL (8.5-10.1); Chloride 99 mmol/L (98-107); Glucose 120 mg/dL (70-100); Potassium 3.8 mmol/L (3.5-5.1); Sodium 136 mmol/L (136-145)
[2018-07-10 09:18] LABS: Troponin I < 0.02 ng/mL (0.00-0.06)
[2018-07-10 09:26] LABS: NT-proBNP 30 pg/mL
[2018-07-10 09:27] LABS: D-Dimer 752 ng/mlFEU (<500)
--- NOTE | 2018-07-10 10:24 | DI.CT_ITS ---
SYMPTOM/DIAGNOSIS: SOB, COUGH, ASPIRATION EVENT PE CHEST CT: CT angiography was performed with multi slice acquisition and multi planar and 3D reconstruction. CT scan of the chest was performed according to the pulmonary embolus protocol. There is no evidence of a pulmonary embolus. The thoracic aorta is of normal caliber. No aneurysm or dissection is present. Heart size is within normal limits. No significant pericardial effusion is seen. No evidence of right ventricular dysfunction is seen. Mildly enlarged lymph nodes are seen in the mediastinum which are likely reactive. No pleural effusion or pneumothorax is identified. There are infiltrates seen in the left upper lobe and the lower lobes bilaterally, likely reflecting pneumonia. Tracheobronchial tree is unremarkable. Upper abdominal images show no acute abnormality. There is a small hiatal hernia. Degenerative changes are seen in the spine. IMPRESSION: 1. No evidence of a pulmonary embolus, thoracic dissection or aneurysm. 2. Infiltrates, most likely reflecting pneumonia. The findings were discussed with Dr. Ocampo of the ER on the date of the examination.
[2018-07-10] MEDS: Omnipaque 350 MG/ML 100 ML BTL IJ (11:47)
--- NOTE | 2018-07-10 13:53 | NUR.NOTE ---
pt up and walked around nuring desk sat on the 50 ft walk was 94to 95 on RA Nursing Note:
[2018-07-10] MEDS: LEVOFLOXACIN 500 MG, LEVOFLOXACIN 250 MG 750 MG PO (14:12)
== END 2018-07-10 14:20 | disposition home or self-care (01) ==
PROVIDERS: Emergency Provider Student in an Organized Health Care Education/Training Program; PCP Nurse Practitioner Family
DX: R06.02 Shortness of breath (principal); J02.9 Acute pharyngitis, unspecified; R53.83 Other fatigue; J18.9 Pneumonia, unspecified organism; R79.1 Abnormal coagulation profile
CPT/HCPCS: 36415; 71275; 80053; 87449; 93005; 94640; 99285; 71046; 83880; 84484; 85025; 85379; 93010; J3490; J7620

== ENCOUNTER 2018-07-25 11:17 | Outpatient (CLI) | payer OTHER, SELFPAY ==
--- NOTE | 2018-07-25 14:15 | DI.RAD_ITS ---
SYMPTOMS/DIAGNOSIS: CONTINUED COUGH, SHORTNESS OF BREATH S/P LEVAQUIN, J95.4- POSTPROCEDURAL ASPIRATION PNEUMONITIS CHEST X-RAY, FRONTAL AND LATERAL VIEWS: Comparison 07/10/18. There has been further improvement in the appearance of the left lung compared to the prior examination. There may be residual linear markings in the left lung base. The right lung remains clear. No effusions or pneumothoraces are identified. No new infiltrates are seen. Mild degenerative changes are seen in the spine. IMPRESSION: Findings suggest a near complete resolution of the left lower lobe pneumonia compared to 07/10/18. No new infiltrates, effusions or pneumothoraces are identified.
== END 2018-07-25 11:37 ==
PROVIDERS: PCP Nurse Practitioner Family; Visit Provider Nurse Practitioner Family
DX: R05 Cough (principal); R06.02 Shortness of breath; J95.4 Chemical pneumonitis due to anesthesia
CPT/HCPCS: 71046

== ENCOUNTER 2018-08-17 09:22 | Outpatient (CLI) | payer OTHER, SELFPAY ==
[2018-08-17 10:23] LABS: CREATININE 0.87 mg/dL (0.70-1.30)
== END 2018-08-17 09:42 ==
PROVIDERS: PCP Nurse Practitioner Family; Visit Provider Internal Medicine
DX: J95.4 Chemical pneumonitis due to anesthesia (principal)
CPT/HCPCS: 36415; 82565

== ENCOUNTER 2018-08-22 01:42 | Outpatient (CLI) | payer OTHER, SELFPAY ==
--- NOTE | 2018-08-22 11:22 | DI.CT_ITS ---
SYMPTOMS/DIAGNOSIS: ASPIRATION PNEUMONIA RESULTING FROM A PROCEDURE, J95.4, CHEMICAL PNEUMONITIS DUE TO ANESTHESIA CHEST CT: Comparison is made with June,. Post contrast exam was performed. There has been significant interval clearing of previously noted left upper and lower lobe infiltrates. There are minimal residual opacities. No new abnormalities are seen. The tracheobronchial tree appears intact. There is no evidence of adenopathy or suspicious mass. The heart size is normal. The aorta shows minimal calcification and is normal in diameter. The visualized portions of the upper abdomen are unremarkable. IMPRESSION: Near complete clearing of previously noted left upper and lower lobe pneumonia.
[2018-08-22] MEDS: Omnipaque 350 MG/ML 100 ML BTL IJ (11:29)
== END 2018-08-22 02:02 ==
PROVIDERS: PCP Nurse Practitioner Family; Visit Provider Internal Medicine
DX: J95.4 Chemical pneumonitis due to anesthesia (principal)
CPT/HCPCS: 71260; J3490

== ENCOUNTER 2018-09-05 01:06 | Outpatient (CLI) | payer OTHER, SELFPAY ==
[2018-09-05 10:44] LABS: Cholesterol 192 mg/dL (50-200); HDL Cholesterol 54 mg/dL (40-60); LDL CHOLESTEROL 121 mg/dL (<100); Triglyceride 102 mg/dL (30-150)
[2018-09-05 10:46] LABS: Hemoglobin A1C 6.5 % (4.5-6.2)
== END 2018-09-05 01:26 ==
PROVIDERS: PCP Nurse Practitioner Family; Visit Provider Nurse Practitioner Family
DX: E78.5 Hyperlipidemia, unspecified (principal); E83.42 Hypomagnesemia
CPT/HCPCS: 36415; 80061; 83721; 83036; 83735

== ENCOUNTER 2019-07-17 08:11 | Outpatient (CLI) | payer OTHER, SELFPAY ==
[2019-07-17 08:45] LABS: Abs Immature Grans 0.01 k/cumm (0.0-0.09); Absolute Basophil Count 0.01 k/cumm (0.0-0.2); Absolute Eosinophil Count 0.38 k/cumm (0.0-0.7); Absolute Lymphocyte Count 1.37 k/cumm (1.2-3.4); Absolute Monocyte Count 0.48 k/cumm (0.11-0.7); Absolute Neutrophil Count 2.02 k/cumm (1.2-6.7); Basophils % 0.2; Eosinophils % 8.9; HCT 40.1 % (40.0-50.0); HGB 13.8 g/dL (13.5-17.5); Immature Grans % 0.2 %; Lymphocytes % 32.1; Mean Corp. HGB Concentration 34.4 g/dL (32.0-36.0); Mean Corpuscular Hemoglobin 33.7 pg (27.0-33.0); Monocytes % 11.2; Neutrophils % 47.4; Platelet Count 168 x1000/uL (130-400); RBC 4.09 m/cumm (4.50-6.00); RBC Distribution Width 13.2 % (11.8-14.1); White Blood Cell Count 4.27 k/cumm (4.4-10.8)
[2019-07-17 09:31] LABS: Anion Gap 8.7 mmol/L (3-11); BUN 14 mg/dL (7-18); CO2 27.3 mmol/L (21.0-32.0); CREATININE 0.73 mg/dL (0.70-1.30); Calculated LDL 173 mg/dL (<100); Chloride 103 mmol/L (98-107); Cholesterol 230 mg/dL (<200); Glucose 103 mg/dL (74-106); HDL Cholesterol 37 mg/dL (40-60); Potassium 4.3 mmol/L (3.5-5.1); Sodium 139 mmol/L (136-145); Triglyceride 101 mg/dL (<150)
[2019-07-17 14:17] LABS: Hemoglobin A1C 6.1 % (3.8-5.6)
== END 2019-07-17 08:31 ==
PROVIDERS: PCP Nurse Practitioner Family; Visit Provider Nurse Practitioner Family
DX: D53.9 Nutritional anemia, unspecified (principal); E78.5 Hyperlipidemia, unspecified
CPT/HCPCS: 36415; 80048; 80061; 83036; 85025

== ENCOUNTER 2019-12-13 08:39 | Outpatient (CLI) | payer OTHER, SELFPAY ==
[2019-12-13 12:54] LABS: Abs Immature Grans 0.01 k/cumm (0.0-0.09); Absolute Basophil Count 0.02 k/cumm (0.0-0.2); Absolute Eosinophil Count 0.42 k/cumm (0.0-0.7); Absolute Lymphocyte Count 1.39 k/cumm (1.2-3.4); Absolute Monocyte Count 0.41 k/cumm (0.11-0.7); Absolute Neutrophil Count 2.34 k/cumm (1.2-6.7); Basophils % 0.4; Eosinophils % 9.2; HCT 40.1 % (40.0-50.0); HGB 13.6 g/dL (13.5-17.5); Immature Grans % 0.2 %; Lymphocytes % 30.3; Mean Corp. HGB Concentration 33.9 g/dL (32.0-36.0); Mean Corpuscular Hemoglobin 33.9 pg (27.0-33.0); Mean Platelet Volume 10.7 fL (8.0-11.0); Monocytes % 8.9; Platelet Count 157 x1000/uL (130-400); RBC 4.01 m/cumm (4.50-6.00); RBC Distribution Width 13.5 % (11.8-14.1); White Blood Cell Count 4.59 k/cumm (4.4-10.8)
[2019-12-13 13:00] LABS: Anion Gap 8.8 mmol/L (3-11); BUN 10 mg/dL (7-18); CO2 28.2 mmol/L (21.0-32.0); CREATININE 0.78 mg/dL (0.70-1.30); Calcium 8.8 mg/dL (8.5-10.1); Calculated LDL 149 mg/dL (<100); Chloride 102 mmol/L (98-107); Cholesterol 206 mg/dL (<200); Glucose 107 mg/dL (74-106); HDL Cholesterol 36 mg/dL (40-60); Potassium 4.1 mmol/L (3.5-5.1); Sodium 139 mmol/L (136-145); Triglyceride 107 mg/dL (<150)
[2019-12-13 13:49] LABS: Hemoglobin A1C 5.9 % (3.8-5.6)
== END 2019-12-13 08:59 ==
PROVIDERS: PCP Nurse Practitioner Family; Visit Provider Nurse Practitioner Family
DX: Z00.00 Encounter for general adult medical examination without abnormal findings (principal); R73.03 Prediabetes; E78.5 Hyperlipidemia, unspecified; D53.9 Nutritional anemia, unspecified
CPT/HCPCS: 80048; 80061; 83036; 85025

== ENCOUNTER 2020-12-18 16:01 | Outpatient (REF) | payer OTHER, SELFPAY ==
[2020-12-18 13:33] LABS: Anion Gap 8.6 mmol/L (3-11); BUN 11 mg/dL (7-18); CO2 27.4 mmol/L (21.0-32.0); CREATININE 0.8 mg/dL (0.70-1.30); Calcium 9.1 mg/dL (8.5-10.1); Calculated LDL 160 mg/dL (<100); Chloride 104 mmol/L (98-107); Cholesterol 218 mg/dL (<200); Glucose 116 mg/dL (74-106); HDL Cholesterol 38 mg/dL (40-60); Potassium 4.3 mmol/L (3.5-5.1); Sodium 140 mmol/L (136-145); Triglyceride 101 mg/dL (<150)
[2020-12-18 20:43] LABS: Abs Immature Grans 0.01 10^3/uL (0.0-0.06); Absolute Basophil Count 0.02 10^3/uL (0.0-0.2); Absolute Eosinophil Count 0.38 10^3/uL (0.0-0.7); Absolute Lymphocyte Count 1.27 10^3/uL (1.2-3.4); Absolute Monocyte Count 0.46 10^3/uL (0.1-0.8); Absolute Neutrophil Count 2.14 10^3/uL (1.2-6.7); Basophils % 0.5; Eosinophils % 8.9; HCT 40.3 % (40.0-50.0); HGB 13.5 g/dL (13.5-17.5); Immature Grans % 0.2; Lymphocytes % 29.7; MCH 33.9 pg (27.0-33.0); MCHC 33.5 % (32.0-36.0); MCV 101.3 fL (80-95); MPV 11.3 fL (8.0-11.0); Monocytes % 10.7; Nucleated RBC 0 %; Platelet Count 155 10^3/uL (130-400); RBC 3.98 10^6/uL (4.36-5.78); RDW 13.1 % (11.8-14.1); WBC 4.28 10^3/uL (4.4-10.8)
[2020-12-18 21:07] LABS: Hemoglobin A1C 6.4 % (<5.7)
== END 2020-12-18 16:02 | disposition home or self-care (01) ==
LOC: LBN 16:01
PROVIDERS: PCP Nurse Practitioner Family; Visit Provider Nurse Practitioner Family
DX: R73.03 Prediabetes (principal); D53.9 Nutritional anemia, unspecified
CPT/HCPCS: 80048; 80061; 83036; 85025

== ENCOUNTER 2021-05-27 15:14 | Outpatient (REF) | payer OTHER, SELFPAY ==
[2021-05-28 15:51] LABS: COVID-19 RT-PCR UVMMC Result Negative (Negative)
== END 2021-05-27 15:15 | disposition home or self-care (01) ==
LOC: NCHCN 15:14
PROVIDERS: PCP Nurse Practitioner Family; Visit Provider Physician Assistant Medical
DX: Z20.822 Contact with and (suspected) exposure to COVID-19 (principal); J34.89 Other specified disorders of nose and nasal sinuses
CPT/HCPCS: U0003

== ENCOUNTER 2021-05-31 16:48 | Outpatient (REF) | payer OTHER, SELFPAY ==
[2021-06-02 09:00] LABS: COVID-19 RT-PCR UVMMC Result Negative (Negative)
== END 2021-05-31 16:49 | disposition home or self-care (01) ==
LOC: LBN 16:48
PROVIDERS: PCP Nurse Practitioner Family; Visit Provider Family Medicine
DX: Z20.822 Contact with and (suspected) exposure to COVID-19 (principal)
CPT/HCPCS: U0003

== ENCOUNTER 2021-06-11 09:16 | Outpatient (REF) | payer OTHER, SELFPAY ==
[2021-06-12 12:02] LABS: COVID-19 RT-PCR UVMMC Result Negative (Negative)
== END 2021-06-11 09:17 | disposition home or self-care (01) ==
LOC: LBN 09:16
PROVIDERS: PCP Nurse Practitioner Family; Visit Provider Family Medicine
DX: R05.9 Cough, unspecified (principal); Z20.822 Contact with and (suspected) exposure to COVID-19
CPT/HCPCS: U0003

== ENCOUNTER 2021-09-03 13:08 | Outpatient (REF) | payer OTHER, SELFPAY ==
[2021-09-05 12:13] LABS: COVID-19 RT-PCR UVMMC Result Negative (Negative)
== END 2021-09-03 13:09 | disposition home or self-care (01) ==
LOC: LBN 13:08
PROVIDERS: PCP Nurse Practitioner Family; Visit Provider Nurse Practitioner Family
DX: Z20.822 Contact with and (suspected) exposure to COVID-19 (principal)
CPT/HCPCS: U0003

== ENCOUNTER 2021-09-09 23:31 | Outpatient (CLI) | payer OTHER, SELFPAY ==
--- NOTE | 2021-09-09 14:45 | DI.RAD_ITS ---
Exam(s) XR CHEST 2V PA LATERAL EXAM: XR CHEST 2V PA LATERAL CLINICAL HISTORY: R05.9 Continued severe cough x 3 weeks TECHNIQUE: COMPARISON: CR XR CHEST 2V PA LATERAL from 07/25/2018 FINDINGS: The heart is at the upper limits of normal in size. Thoracic aorta appears tortuous. There is some prominence of the pulmonary interstitial markings bilaterally which is nonspecific and may represent scarring. There is a question of a faint superimposed opacity in right mid lung not present on prior examinatio n of 07/25/2018. No pleural effusion seen. IMPRESSION: Question faint right intrapulmonary opacity. Additional evaluation with chest CT suggested to rule o ut consolidation or mass lesion. RADIATION DOSE DELIVERED: Total DLP
== END 2021-09-09 23:51 ==
PROVIDERS: PCP Nurse Practitioner Family; Visit Provider Nurse Practitioner Family
DX: R05.9 Cough, unspecified (principal)
CPT/HCPCS: 71046

== ENCOUNTER 2022-05-27 03:13 | Outpatient (CLI) | payer OTHER, SELFPAY ==
[2022-05-27 10:55] LABS: HCT 40.7 % (40.0-50.0); HGB 13.8 g/dL (13.5-17.5); MCH 32.7 pg (27.0-33.0); MCHC 33.9 % (32.0-36.0); MCV 96 fL (80-95); MPV 9.7 fL (8.0-11.0); Platelet Count 166 10^3/uL (130-400); RBC 4.22 10^6/uL (4.36-5.78); RDW 13.3 % (11.8-14.1); RDW-SD 47.6 fL; WBC 5.46 10^3/uL (4.4-10.8)
[2022-05-27 11:12] LABS: Hemoglobin A1C 5.8 % (<5.7)
[2022-05-27 11:24] LABS: ALT 31 U/L (16-63); AST 24 U/L (15-37); Albumin 3.9 g/dL (3.4-5.0); Alkaline Phosphatase 91 U/L (46-116); Anion Gap 5.4 mmol/L (3-11); BUN 9 mg/dL (7-18); Bilirubin, Total 0.6 mg/dL (0.2-1.0); CO2 30.6 mmol/L (21.0-32.0); Calcium 9.3 mg/dL (8.5-10.1); Chloride 101 mmol/L (98-107); Estimated GFR 84.57 (mL/min/1.73m2); Glucose 107 mg/dL (74-106); Potassium 4.3 mmol/L (3.5-5.1); Sodium 137 mmol/L (136-145); TSH (W/Ref FT4) 1.85 uIU/mL (0.36-3.74); Total Protein 9.1 g/dL (6.4-8.2)
[2022-05-27 11:39] LABS: Calculated LDL 133 mg/dL (<100); Cholesterol 189 mg/dL (<200); HDL Cholesterol 43 mg/dL (40-60); Triglyceride 69 mg/dL (<150)
[2022-05-27 20:46] LABS: PSA, Screening 0.4 ng/mL (<=4.5)
== END 2022-05-27 03:14 | disposition home or self-care (01) ==
LOC: LBO 03:13
PROVIDERS: PCP Nurse Practitioner Family; Visit Provider Nurse Practitioner Family
DX: E78.5 Hyperlipidemia, unspecified (principal); R73.03 Prediabetes; D53.9 Nutritional anemia, unspecified; Z12.5 Encounter for screening for malignant neoplasm of prostate
CPT/HCPCS: 36415; 80053; 80061; 84153; 85027; 83036; 84443

== ENCOUNTER 2023-03-17 07:23 | Outpatient (CLI) | payer OTHER, SELFPAY ==
[2023-03-17 12:16] LABS: Abs Immature Grans 0.02 10^3/uL (0.0-0.06); Absolute Basophil Count 0.02 10^3/uL (0.0-0.2); Absolute Eosinophil Count 0.36 10^3/uL (0.0-0.7); Absolute Monocyte Count 0.39 10^3/uL (0.1-0.8); Absolute Neutrophil Count 3.22 10^3/uL (1.2-6.7); Basophils % 0.4; Eosinophils % 6.7; HCT 38.7 % (40.0-50.0); HGB 13.1 g/dL (13.5-17.5); Immature Grans % 0.4; Lymphocytes % 25.9; MCHC 33.9 % (32.0-36.0); MCV 98 fL (80-95); MPV 10.1 fL (8.0-11.0); Monocytes % 7.2; Neutrophils % 59.4; Platelet Count 165 10^3/uL (130-400); RBC 3.97 10^6/uL (4.36-5.78); RDW 12.8 % (11.8-14.1); RDW-SD 45.7 fL; WBC 5.41 10^3/uL (4.4-10.8)
[2023-03-17 12:20] LABS: Anion Gap 8.4 mmol/L (3-11); BUN 11 mg/dL (7-18); CO2 26.6 mmol/L (21.0-32.0); CREATININE 0.7 mg/dL (0.70-1.30); Calcium 9.4 mg/dL (8.5-10.1); Chloride 104 mmol/L (98-107); Estimated GFR 102.89 (mL/min/1.73m2); Glucose 114 mg/dL (74-106); Potassium 3.9 mmol/L (3.5-5.1); Sodium 139 mmol/L (136-145)
[2023-03-17 12:48] LABS: Hemoglobin A1C 6.2 % (<5.7)
== END 2023-03-17 07:24 | disposition home or self-care (01) ==
PROVIDERS: PCP Nurse Practitioner Family; Referring Provider Nurse Practitioner Family; Visit Provider Nurse Practitioner Family
DX: Z00.00 Encounter for general adult medical examination without abnormal findings (principal); D53.9 Nutritional anemia, unspecified
CPT/HCPCS: 36415; 80048; 83036; 85025

== ENCOUNTER → 2023-10-05 18:41 | Outpatient (CLI) | payer SELFPAY ==
--- NOTE | 2023-10-05 20:03 | DI.RAD_ITS ---
Exam(s) XR CHEST 2V PA LATERAL EXAM: XR CHEST 2V PA LATERAL CLINICAL HISTORY: R05.9 - COUGH, UNSPECIFIED TECHNIQUE: 2D digital imaging was performed. Two views. COMPARISON: CR XR CHEST 2V PA LATERAL from 09/09/[address] CHEST WO from 09/15/2021 FINDINGS: HEART: Normal size. Aorta: Not dilated. PULMONARY VASCULATURE: Normal. LUNGS: Low lung volumes. Underlying fibrotic changes. No superimposed infiltrate. PLEURAL SPACE: No pleural effusion or pneumothorax. BONE:Unremarkable for age. Soft tissues: Unremarkable. IMPRESSION: Chronic fibrotic changes. No acute abnormality. DATA REPOSITORY: RADIATION DOSE DELIVERED:
--- NOTE | 2023-10-05 20:37 | DI.VRAD_ITS ---
PROCEDURE INFORMATION: Exam: XR Chest Exam date and time: 10/05/2023 7:55 PM Age: 63 years old Clinical indication: Cough TECHNIQUE: Imaging protocol: Radiologic exam of the chest. Views: 2 views. COMPARISON: CT CHEST WO 09/15/2021 8:08 AM FINDINGS: Lungs: Mild diffuse pulmonary interstitial prominence appear stable. No acute pulmonary consolidation. Lung volumes are slightly low with crowding of the pulmonary vasculature. Pleural spaces: Unremarkable. No pleural effusion. No pneumothorax. Heart/Mediastinum: Unremarkable. No cardiomegaly. Bones/joints: Mild degenerative changes throughout the spine. No acute fracture. IMPRESSION: Mild hypoaeration changes. Significant acute cardiopulmonary pathology evident. Dictated and Authenticated by: Kel Brand MD. Ordering:RIMA Cisneros MD
== END ==
PROVIDERS: PCP Nurse Practitioner Family; Visit Provider Physician Assistant Medical
DX: R91.8 Other nonspecific abnormal finding of lung field (principal)
CPT/HCPCS: 71046

== ENCOUNTER 2024-03-28 08:20 | Outpatient (CLI) | payer MEDICARE, SELFPAY ==
--- OUTSIDE RECORDS SUMMARY | 2024-03-28 08:23 | XMS_ITS | Encounter Summary ---
Author Organization [facility] [place] [address] Care Team Providers Care Eyelet Riveter Name Role Phone AmberElena anne APRN Primary Care Provider [phone] Reason for Visit * Reason Onset Date Comments Medication Refill 10/04/2023 Encounter Details Date Type Department Care Team (Late st Contact Info) Description 10/04/2023 [place] [phone] Braydon Lunsford MD [facility] [place] [address] Chronic bronchitis, unspecified chronic bronchitis type (Primary Dx) Social History Tobacco Use Types Packs/Day Years Used Date Smoking Tobacco: Never Smokeless Tobacco: Never Sex and Gender Information Value Date Recorded Sex Assigned at Not on file Gender Identity Not on file Sexual Orientation Not on file documented as of this encounter Plan of Treatment Upcoming Encounters Date Type Department Care Team (Late st Contact Info) Description 06/07/2024 9:00 AM EST [place] [phone] 06/07/2024 11:00 AM EST [place] [phone] Braydon Lunsford MD [facility] [place] [address] documented as of this encounter Visit Diagnoses Diagnosis Chronic bronchitis, unspecified chronic bronchitis type- Primary documented in this encounter Care Teams Eyelet Riveter Relationship Specialty Start Date End Date Elena Bullock APRN [address] [facility] [address] [place] [address] PCP - General Family Medicine 09/20/17 documented as of this encounter
--- OUTSIDE RECORDS SUMMARY | 2024-03-28 08:23 | XMS_ITS | Encounter Summary ---
Author Organization [facility] Address [facility] [place] [address] Care Team Providers Care Acetylene Operator Name Role Phone Elena Bullock APRN Primary Care Provider Encounter Details Date Type Department Care Team (Late st Contact Info) Description 02/19/2024 [place]phone [place] [phone] Julita Szymanski Social History Tobacco Use Types Packs/Day Years [...] 06/07/2024 9:00 AM EST Appointment [place] [phone] 06/07/2024 11:00 AM EST [place] [phone] Braydon Lunsford MD [facility] [place] [address] documented as of this encounter Visit Diagnoses Not on filedocumented in this encounter Care Teams Acetylene Operator Relationship Specialty Start Date End Date Elena Bullock APRN [address] [place] [address] [place], [place] [id number] PCP - General Family Medicine 09/20/17 documented as of this encounter
--- OUTSIDE RECORDS SUMMARY | 2024-03-28 08:23 | XMS_ITS | Encounter Summary ---
Author Organization [facility] [place] [address] Care Team Providers Care Dentofacial Orthopedics Dentist Name Role Phone Elena Bullock APRN Primary Care Provider [phone] Reason for Visit * Consultation (Urgent) - Closed Specialty Diagnoses / Procedures Referred By Contac t Referred To Contact Pulmonology Diagnoses Cough Fawad Colon APRN [address] [place] [address] [facility] Pulmonology [address] [place] [phone] Referral ID Status Reason Start Date Expiration Date V isits Requested Visits Authorized [id number] Closed Consult, Test & Treat PCP Updated and/or Approved 09/22/2021 09/22/2022 6 6 Encounter Details Date Type Department Care Team (Late st Contact Info) Description 09/30/2021 10:00 AM EDT Office [place] [phone] Braydon Lunsford MD [facility] [place] [address] LUQUE (dyspnea on exertion); ILD (interstitial lung disease); Chronic bronchitis, unspecified chronic bronchitis type; Bronchiectasis without complication Social History Tobacco Use Types Packs/Day Years Used Date Smoking Tobacco: Never Smokeless Tobacco: Never Sex and Gender Information Value Date Recorded Sex Assigned at Not on file Gender Identity Not on file Sexual Orientation Not on file documented as of this encounter Last Filed Vital Signs Vital Sign Reading Time Taken Comments Blood Pressure 108/58 09/30/2021 9:47 AM EDT Pulse 86 09/30/2021 9:47 AM EDT Temperature 36.3 ??C (97.3 ??F) 09/30/2021 9:47 AM ED T Respiratory Rate 16 09/30/2021 9:47 AM EDT Oxygen Saturation 97% 09/30/2021 9:47 AM EDT Inhaled Oxygen Concentration - - Weight 89 kg (196 lb 3.4 oz) 09/30/2021 9:47 AM EDT Height 168.5 cm (5' 6.34) 09/30/2021 9:47 AM ED T Body Mass Index 31.35 09/30/2021 9:47 AM EDT documented in this encounter Progress Notes * Braydon Lunsford MD - 09/30/2021 10:00 AM EDT Images from the original note were not included. SECTION OF PULMONARY AND CRITICAL CARE?? Pulmonary [place] [address] Outpatient New Consultation Consulted by Fawad Colon APRN, to evaluate this patient for cough. I have personally interviewed and examined the patient on 09/30/21, and reviewed the patient's radiographic studies and laboratorydata. HPI: In brief, Zachery Whittaker is a 61 y.o. male with a history of cough, which most recently began in the early part of the year (May 2021) when he developed an apparent URI. Over the course of the next few months his symptoms waxed and waned, intermittently productive, and treated on various occasions with several courses of antibiotics, bronchodilators, nasal decongestants. He had a chest x-ray in August 2021 which suggested an abnormality in his right midlung field, leading to a CT scan with a number of scattered abnormalities, but no acute infiltrates. He denies significant allergies, no history of asthma, he has never smoked. He had a curious episode 3 years ago following a colon oscopy during which he apparently aspirated and developed an extensive right- sided pneumonitis, treated with several courses of steroids, antibiotics, bronchodilators and over the course of the winter 2018 was seen multiple times by Dr. Amanda Gallardo at [facility], who found his pulmonary function studies to be unrevealing and treated him with multiple courses of steroids. Her last note from that timeframe indicated that he had completely resolved all symptoms of cough, dyspnea, wheezing. 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 He h had no prior occupational or environmental exposures. He denies choking on food, he denies GERD symptoms. His father had sarcoidosis (by his recollection). He otherwise has had no systemic symptoms, neil arthritis,skin rashes, true dysphagia. He has a history of leukopenia, thrombocytopenia, followed by hematology at for years. Stable from that standpoint for the past 5 years or so. PAST MEDICAL HISTORY: Patient Active Problem List Diagnosis Code ??? Other neutropenia D70.8 ??? Thrombocytopenia D69.6 ??? Anemia, macrocytic D53.9 ??? Hyperlipidemia E78.5 ??? Diverticulosis of large intestine without perforation or abscess with bleeding K57.31 MEDICATIONS: Current Outpatient Medications Medication Sig Dispense Refill ??? codeine-guaiFENesin (guaiFENesin AC) 10-100 mg/5 mL Liquid TAKE 5 TO 10 ML BY MOUTH EVERY 6 HOURS NEEDED FOR COUGH ??? cetirizine (ZYRTEC) 10 mg Tablet Take 10 mg by mouth daily. ??? loratadine (CLARITIN) 10 mg Tablet Take 10 mg by mouth daily. ??? Multivits/Iron Fum/FA/D3/Lycop (MULTI FOR HIM ORAL) Take by mouth. ??? fluticasone propion-salmeteroL (Advair HFA) 230-21 mcg/actuation HFA Aerosol Inhaler Inhale 2 puffs into the lungs 2 times daily. 1 each 11 ??? hydrOXYzine (ATARAX) 25 mg Tablet Take 25 mg by mouth 3 times daily as needed for Itching. ??? naproxen sodium (ANAPROX) 550 mg Tablet Take 550 mg by mouth 2 times daily (with meals). No current facility-administered medications for this visit. ALLERGIES: Augmentin [amoxicillin-pot clavulanate] and Pollen extracts FAMILY HISTORY: Father: Sarcoidosis Otherwise noncontributory SOCIAL HISTORY: Social History Socioeconomic History ??? Marital status: Single Spouse name: Not on file ??? Number of children: Not on file ??? Years of education: Not on file ??? Highest education level: Not on file Occupational History ??? Not on file Tobacco Use ??? Smoking status: Never Smoker ??? Smokeless tobacco: Never Used Vaping Use ??? Vaping Use: Never used Substance and Sexual Activity ??? Alcohol use: Not on file ??? Drug use: Not on file ??? Sexual activity: Not on file Other Topics Concern ??? Not on file Social History Narrative ??? Not on file Social Determinants of Health Financial Resource Strain: Not on file Food Insecurity: Not on file Transportation Needs: Not on file Physical Activity: Not on file Housing Stability: Not on file Review of Systems: (See HPI; otherwise negative x11) PHYSICAL EXAM Last value Range last 24 hrs Temperature Temp: 36.3 ??C (97.3 ??F) Temp: -- Heart Rate Heart Rate: 86 Heart Rate: -- Blood Pressure BP: 108/58 BP: -- Respiratory Rate Resp: 16 Resp: -- SpO2 SpO2: 97 % SpO2: -- WDWN 61 y.o. male in NAD. HEENT-NC/AT; unremarkable Neck-supple without masses or, nodes Chest-few faint scattered rhonchi bilaterally Heart-Normal rate and rhythm, without murmers, gallops, or rubs. Abdomen-benign without organomegaly or tenderness Extremities-no cyanosis, clubbing, or edema Skin-no rashes or lesions Musculoskeletal-no joint swelling, tenderness, redness or deformities Neurologic-Nonfocal, without weakness or sensory deficits Lymphatics-unremarkable Acute Phase Reactants Recent Labs 09/30/21 1233 CRP 3.9 SEDRATE 74* Most Recent Chest CT Scan was reviewed by me: Chest CT from August 2021 shows bilateral subpleural reticulation, notably in the upper lobes anteriorly (left greater than right) and the middle to lower lung new laterally, with scattered septal thickening and widespread tubular and cystic bronchiectasis. Notable is proximal bronchiectasis witharchitectural distortion of the large airways, mild bilateral hilar and mediastinal adenopathy, with evidence of a patulous esophagus. No tree-in-bud opacifications, groundglass opacifications, or honeycombing. I have personally reviewed the PFTs, and my interpretation is as follows: FVC of 3.03L (76% pred), FEV1 of 2.52L (81% pred), FEV1/FVC 83%. Diffusing capacity was not performed. Normal spirometry. IMPRESSION: In summary, this is a 61 y.o. male with cough, largely resolving, without significant purulent sputum and without significant dyspnea on exertion or wheezing at present. Review of the films from 2019 shows a rather extensive left-sided aspiration pneumonitis, but follow-up CT scan from weeks after that event showed resolving injury on the left with evidence of a milder degree of similar abnormalities on the right, with bronchiectasis mild but clearly present bilaterally on that scan. His more recent scan demonstrates far more significant bronchiectasis, with diffuse scarring though minimal architectural distortion of the parenchyma, and no honeycombing or other signs of progressive fibrosing interstitial lung disease. The proximal distortion of the airways is curious, and is reminiscent of a pattern that might be seen with allergic bronchopulmonary aspergillosis, though his history is not that of chronic refractory airflow obstruction. He has very slight evidence of peripheral eosinophilia, an elevated sedimentation rate, likely reflective of chronic recurrent bronchitis/bronchiectasis possibly due to chronic aspiration. I discussed consideration of precautions for GERD (elevation of the head of the bed, wedge pillow, avoidance of eating within 3 hours of bedtime. I also suggested that he have a swallowing study to evaluate whether he has active penetration when heis eating, and I will plan to see him back in about 6 months for follow-up pulmonary function studies, to include diffusing capacity and lung volumes. In the interim I recommended a trial of Advair HFA 230-21, 2 puffs twice daily with spacer, and I would recommend a low threshold for coverage with antibiotics for any sign of purulent sputum production. A total IgE level would also be worth checking. Follow-up as indicated. Total visit time: 60 minutes Greater than 60 min of this 80 minute visit was spent in face to face discussion with the patient and family regarding the nature and complexity of the problems described above, the details of our diagnostic and therapeutic plans, and medication management. documented in this encounter Plan of Treatment Upcoming Encounters Date Type Department Care Team (Cameron costello Contact Info) Description 06/07/2024 9:00 AM EST Appointment [place] [phone] 06/07/2024 11:00 AM EST Office [place] [phone] Braydon Lunsford MD [facility] [place] [address] documented as of this encounter Procedures Procedure Name Priority Date/Time Associated Diagnosis Comments HC C-REACTIVE PROTEIN Routine 09/30/2021 12:33 PM EDT LUQUE (dyspnea on exertion) ILD (interstitial lung disease) HEMOGRAM Routine 09/30/2021 12:33 PM EDT LUQUE (dyspnea on exertion) ILD (interstitial lung disease) DIFFERENTIAL, AUTOMATED Routine 09/30/2021 12:33 PM EDT LUQUE (dyspnea on exertion) ILD (interstitial lung disease) HC ESR-SEDIMENTATION RATE, BLOOD Routine 09/30/2021 12:33 PM EDT LUQUE (dyspnea on exertion) ILD (interstitial lung disease) HC CBC,PLT & AUTO DIFF Routine 12:33 PM EDT LUQUE (dyspnea on exertion) ILD (interstitial lung disease) HC VENIPUNCTURE Routine 09/30/2021 12:33 PM EDT LUQUE (dyspnea on exertion) ILD (interstitial lung disease) Chronic bronchitis, unspecified chronic bronchitis type HC CREATINE PHOSPHOKINASE, SERUM Routine 09/30/2021 12:33 PM EDT LUQUE (dyspnea on exertion) ILD (interstitial lung disease) COMPREHENSIVE METABOLIC PANEL Routine 09/30/2021 12:33 PM EDT LUQUE (dyspnea on exertion) ILD (interstitial lung disease) documented in this encounter Results * Pulmonary Function Testing (04/08/2022 8:59 AM EST) FVC Actual Pre-BD 3.04 L COMPAS PFT FVC Pre-BD % of Predicted 77 % COMPAS PFT FVC Predicted 3.96 L COMPAS PFT FVC Pre-BD Z-Score -1.57 COMPAS PFT FVC Lower Limits of Normal 3.00 L COMPAS PFT FEV1 Actual Pre-BD 2.73 L COMPAS PFT FEV1 Pre-BD % of Predicted 89 % COMPAS PFT FEV1 Predicted 3.07 L COMPAS PFT FEV1 Pre-BD Z-Score -0.73 COMPAS PFT FEV1 Lower Limits of Normal 2.29 L COMPAS PFT FEV1 / FVC Actual Pre-BD 90 % COMPAS PFT FEV1/FVC Pre-BD Z-Score 1.80 COMPAS PFT FEV1 / FVC LLN 65 % COMPAS PFT [id number] Actual Pre-BD 4.99 L/s COMPAS PFT [id number] Pre-BD % of Predicted 195 % COMPAS PFT [id number] Predicted 2.56 L/s COMPAS PFT [id number] Pre-BD Z-Score 2.09 COMPAS PFT Narrative COMPAS PFT - 04/08/2022 8:59 AM EST FINDINGS: FEV1, FVC, and FEV1/VC are within normal limits. IMPRESSION: Normal spirometry. Compared to the last study on 09/30/21, the FVC and FEV1 are not significantly changed. Procedure Note Prema Liao MD - 04/08/2022 FINDINGS: FEV1, FVC, and FEV1/VC are within normal limits. IMPRESSION:Normal spirometry. Compared to the last study on 09/30/21, the FVC and FEV1 are notsignificantly changed. Braydon Dasilva MD PFT ORDERABLES COMPAS PFT * (ABNORMAL) Differential, Automated (09/30/2021 12:33 PM EDT) Neutrophil % 47.9 % [facility] Neutrophil Absolute 2.62 1.70 - 6.10 x10(3)/[facility] Lymph % 30.9 % [facility] Lymphocytes Abs 1.7 0.9 - 3.2 x10(3)/[facility] Monocyte % 12.1 % [facility] Monocyte Abs 0.7 0.3 - 0.9 x10(3)/[facility] Eos % 8.4 % [facility] Eosinophils Abs 0.5(H) 0.0 - 0.4 x10(3)/[facility] Basophil % 0.5 % [facility] Baso Absolute 0.0 0.0 - 0.1 x10(3)/[facility] Immature Gran % 0.20 % [facility] Comment: Immature granulocytes(IG's)percentage and absolute count will include metamyelocytes, myelocytes, and promyelocytes. Blood smears from CBCs yielding IG's will be scanned manually for concordance. If this scan disagrees with the automated IG or if promyelocytes are noted, a manual differential will be performed. Immature Gran Absolute 0.01 0.00 - 0.04 x10(3)/[facility] Blood 09/30/2021 12:3 3 PM EDT 09/30/2021 12:39 PM EDT Narrative Resulting Agency Comment Spec In Lab Braydon Dasilva MD HEMATOLOGY ORDERABL ES [facility] [place] [address] * (ABNORMAL) Hemogram (09/30/2021 12:33 PM EDT) White Blood Cell 5.5 4.0 - 9.5 x10(3)/[facility] Red Blood Cell 3.93(L) 4.58 - 5.54 x10(6)/[facility] Hemoglobin 13.2(L) 13.7 - 16.5 g/dL [facility] Hematocrit 38.1(L) 40.5 - 48.5 % [facility] Mean Cell Volume 96.9(H) 82.9 - 93.1 fL [facility] Mean Cell Hemoglobin 33.6(H) 27.5 - 32.1 pg [facility] Mean Cell Hemoglobin Concentration 34.6 32.0 - 35.7 g/dL [facility] Platelet 136(L) 145 - 357 x10(3)/mc L [facility] RDW Standard Deviation 46.7(H) 36.0 - 45.0 fL [facility] RDW coefficient of variation 13.2 11.4 - 13.8 % [facility] Mean Platelet Volume 9.9 7.6 - 12.9 fL [facility] NRBC% auto 0.0 % [facility] NRBC Absolute 0.000 0.000 - 0.000 x10(3)/mc L [facility] Blood 09/30/2021 12:3 3 PM EDT 09/30/2021 12:39 PM EDT Narrative Resulting Agency Comment Spec In Lab Braydon Dasilva MD HEMATOLOGY ORDERABL ES [facility] [place] [address] * (ABNORMAL) Blood Gas Venous (09/30/2021 12:33 PM EDT) pH, Venous 7.43(H) 7.32 - 7.42 [facility] PCO2, Venous 42 41 - 51 mmHg [facility] PO2, Venous 55(H) 25 - 40 mmHg [facility] Bicarbonate, Venous 27.0 mmol/L [facility] Base Excess, Venous 2.7 mmol/L [facility] Hgb Blood Gas 14.1 13.7 - 16.5 g/dL [facility] Oxyhemoglobin, Venous 88.7 % [facility] Carboxyhemoglob in, Venous 0.6 % [facility] Comment: Nonsmokers: 0.5-1.5% COHB Smokers: Variable, but usually less than 10% Toxic: 20-30% COHB Lethal: Greater than 60% COHB Methemoglobin, Venous 0.3 <=1.5 % [facility] Na Whole Blood 139 135 - 145 mmol/L [facility] K Whole Blood 4.0 3.5 - 5.0 mmol/L [facility] Comment: Please note: Patients with WBC >100,000 may have falsely elevated Potassium levels. Contact the Clinical Chemistry Laboratory if there are any questions. ICa Whole Blood 1.23 1.15 - 1.33 mmol/L [facility] Comment: Note: ??Total bilirubin higher than 20 mg/dL may lead to falsely low ionized calcium. CL Whole Blood 102 98 - 107 mmol/L [facility] Gluc Whole Bld 97 65 - 199 mg/dL [facility] Comment:Diabetes: >=200 mg/d L plus symptoms Lactate WB 1.1 0.5 - 2.2 mmol/L [facility] Blood Gas Source Venous [facility] Blood 09/30/2021 12:3 3 PM EDT 09/30/2021 12:37 PM EDT Narrative Resulting Agency Comment Spec In Lab Braydon Dasilva MD CHEMISTRY ORDERABLE S [facility] [place] [address] * CK (09/30/2021 12:33 PM EDT) Creatine Kinase 130 0 - 200 unit/L [facility] Blood 09/30/2021 12:3 3 PM EDT 09/30/2021 12:39 PM EDT Narrative Resulting Agency Comment Spec In Lab Braydon Dasilva MD CHEMISTRY ORDERABLE S [facility] [place] [address] * (ABNORMAL) Comprehensive metabolic panel (non-fasting) (09/30/2021 12:33 PM EDT) Glucose 99 65 - 199 mg/dL [facility] Comment:Diabetes: >=200 mg/d L plus symptoms Blood Urea Nitrogen 12 10 - 20 mg/dL [facility] Creatinine 0.76(L) 0.80 - 1.50 mg/dL [facility] Sodium 137 135 - 145 mmol/L [facility] Potassium 4.1 3.5 - 5.0 mmol/L [facility] Comment: Please note: ??Patients with WBC >100,000 may have falsely elevated Potassium levels. ??For accurate Potassium quantification in these patients send serum separator tube (gold top) for subsequent determinations. ??Contact the Clinical Chemistry Laboratory if there are any questions. Chloride 101 98 - 107 mmol/L [facility] Carbon Dioxide 24 22 - 31 mmol/L [facility] Anion Gap 12 5 - 15 mmol/L [facility] Calcium 9.5 8.5 - 10.5 mg/dL [facility] Protein, Total 7.8 6.1 - 8.0 g/dL [facility] Albumin 4.2 3.2 - 5.2 g/dL [facility] Aspartate Aminotransferase 23 0 - 39 unit/L [facility] Alanine Aminotransferase 19 0 - 55 unit/L [facility] Alkaline Phosphatase 65 40 - 130 unit/L [facility] Bilirubin, Total 0.4 0.2 - 1.3 mg/dL [facility] Est Glomerular Filtration Rate 98 >=60 mL/min/1. 73 m?? [facility] Comment: This patient? s estimated glomerular filtration rate (eGFR) is between 98 mL/min/1.73 m2 (patients with less muscle mass per kg body weight) and 113 mL/min/1.73 m2 (patients with more muscle mass per kg body weight) as determined by the CKD-EPI equation. Assessment of eGFR is not appropriate when creatinine concentrations are rapidly changing. For clinical decisions where creatinine clearance will affect therapy, a 24-hour urine creatinine clearance may be advised. Assignment of CKD stage 1 - 5 for patients with an eGFR near the transition point between stages may be based on clinical assessment of muscle mass and symptoms in addition to eGFR. Blood 09/30/2021 12:3 3 PM EDT 09/30/2021 12:39 PM EDT Narrative Resulting Agency Comment Spec In Lab Braydon Dasilva MD CHEMISTRY ORDERABLE S Performing Organization Address [facility] de Phone Number [facility] [place] [address] * (ABNORMAL) Sedimentation rate (09/30/2021 12:33 PM EDT) Sedimentation Rate Automated 74(H) 2 - 37 mm/hr [facility] Comment: Effective May 08, 2019 new capillary photometric technology has resulted in a change in reference ranges. It is recommended that each ESR result be reviewed with its own age appropriate reference range. Blood 09/30/2021 12:3 3 PM EDT 09/30/2021 12:39 PM EDT Narrative Resulting Agency Comment Spec In Lab Braydon Dasilva MD HEMATOLOGY ORDERABL ES Performing Organization Address [facility] Co de Phone Number [facility] [place] [address] * CRP, acute inflammation (09/30/2021 12:33 PM EDT) C-Reactive Protein 3.9 <=4.9 mg/L [facility] Blood 09/30/2021 12:3 3 PM EDT 09/30/2021 12:39 PM EDT Narrative Resulting Agency Comment Spec In Lab Braydon Dasilva MD CHEMISTRY ORDERABLE S [facility] [place] [address] documented in this encounter Visit Diagnoses Diagnosis LUQUE (dyspnea on exertion) Other dyspnea and respiratory abnormality ILD (interstitial lung disease) Postinflammatory pulmonary fibrosis Chronic bronchitis, unspecified chronic bronchitis type Bronchiectasis without complication Bronchiectasis without acute exacerbation ILD (interstitial lung disease) Postinflammatory pulmonary fibrosis Chronic bronchitis, unspecified chronic bronchitis type documented in this encounter Care Teams Dentofacial Orthopedics Dentist Relationship Specialty Start Date End Date Elena Bullock APRN [address] [place] [address] PCP - General Family Medicine 09/20/17 documented as of this encounter
--- OUTSIDE RECORDS SUMMARY | 2024-03-28 08:23 | XMS_ITS | Encounter Summary ---
Author Organization [facility] [place] [address] Care Team Providers Care Host/Hostess Head Name Role Phone AralEena DESIRE Primary Care Provider [phone] Reason for Referral * Speech Therapy (Routine) - Closed Specialty Diagnoses / Procedures Referred By Contalton t Referred To Contact Speech Therapy Diagnoses ILD (interstitial lung disease) Bronchiectasis without complication Braydon Lunsford MD [facility] [place] [address] [facility] [place] [place] [address] Referral ID Status Reason Start Date Expiration Date V isits Requested Visits Authorized [id number] Closed Evaluate and Treat 10/07/2022 10/07/2023 20 20 Encounter Details Date Type Department Care Team (Late st Contact Info) Description 10/07/2022 10:00 AM EDT Office [place] [phone] Braydon Lunsford MD [facility] [place] [address] ILD (interstitial lung disease); Bronchiectasis without complication; Oropharyngeal dysphagia Social History Tobacco Use Types Packs/Day Years Used Date Smoking Tobacco: Never Smokeless Tobacco: Never Tobacco Cessation:Counseling Given: Not Answered Sex and Gender Information Value Date Recorded Sex Assigned at Not on file Gender Identity Not on file Sexual Orientation Not on file documented as of this encounter Last Filed Vital Signs Vital Sign Reading Time Taken Comments Blood Pressure 107/66 10/07/2022 9:36 AM EDT Pulse 59 10/07/2022 9:36 AM EDT Temperature 35.9 ??C (96.6 ??F) 10/07/2022 9:36 AM ED T Respiratory Rate 16 10/07/2022 9:36 AM EDT Oxygen Saturation - - Inhaled Oxygen Concentration - - Weight 85 kg (187 lb 6.3 oz) 10/07/2022 9:36 AM EDT Height 168.2 cm (5' 6.22) 10/07/2022 9:36 AM ED T Body Mass Index 30.05 10/07/2022 9:36 AM EDT documented in this encounter Progress Notes * Braydon Lunsford MD - 10/07/2022 10:00 AM EDT Images from the original note were not included. SECTION OF PULMONARY AND CRITICAL CARE?? Pulmonary and [place] [address] Outpatient Follow-up 04/08/2022: Follow-up 62 y.o. male with a history of cough when he developed an apparent URI. He was treated on various occasions with antibiotics, a brief course of prednisone. He had an unfortunateepisode in 2019 years ago following a colonoscopy during which he apparently aspirated and developed an extensive left-sided pneumonitis, treated with several courses of steroids, antibiotics, bronchodilators and over the course of the winter 2018 was seen multiple times by Dr. Amanda Gallardo at [facility], who found his pulmonary function studies to be unrevealing (and treated him with multiple courses of steroids). Her last note from that timeframe indicated that he had completely resolved all symptoms of cough, dyspnea, wheezing. 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 He has had no systemic symptoms, nor neil arthritis, though he endorses dysphagia, as well as frequent choking on food. He has an intermittent nonproductive cough, for which he uses Advair twice daily. He has benefited from elevating the head of his bed. He still gets occasional cough associated with eating and has mild stable dyspnea on exertion, without significant change since 2019. Today he returns stating that he has been coughing more when he eats, and he also endorses the sense that food sometimes does not go down when he swallows. He indicates that he has a sensation sometimes of having food stick in his mid chest as well. He has a history of gastroesophageal reflux disease, but he has not had problems with that since elevating the head of his bed. PAST MEDICAL HISTORY: Patient Active Problem List Diagnosis Code ??? Other neutropenia D70.8 ??? Thrombocytopenia D69.6 ??? Anemia, macrocytic D53.9 ??? Hyperlipidemia E78.5 ??? Diverticulosis of large intestine without perforation or abscess with bleeding K57.31 MEDICATIONS: Current Outpatient Medications Medication Sig Dispense Refill ??? ascorbic acid, Vitamin C, (Vitamin C) 250 mg tablet Take 500 mg by mouth daily. ??? codeine-guaiFENesin (guaiFENesin AC) 10-100 mg/5 mL Liquid TAKE 5 TO 10 ML BY MOUTH EVERY 6 HOURS NEEDED FOR COUGH ??? fluticasone propion-salmeteroL (Advair HFA) 230-21 mcg/actuation HFA Aerosol Inhaler Inhale 2 puffs into the lungs 2 times daily. 1 each ??? cetirizine (ZYRTEC) 10 mg Tablet Take 10 mg by mouth daily. ??? hydrOXYzine (ATARAX) 25 mg Tablet Take 25 mg by mouth 3 times daily as needed for Itching. ??? Multivits/Iron Fum/FA/D3/Lycop (MULTI FOR HIM ORAL) Take by mouth. ??? loratadine (CLARITIN) 10 mg Tablet Take 10 mg by mouth daily. ??? naproxen sodium (ANAPROX) 550 mg Tablet Take 550 mg by mouth 2 times daily (with meals). No current facility-administered medications for this visit. ALLERGIES: Augmentin [amoxicillin-pot clavulanate] and Pollen extracts PHYSICAL EXAM Last value Range last 24 hrs Temperature Temp: 35.9 ??C (96.6 ??F) Temp: [35.9 ??C (96.6 ??F)] Heart Rate Heart Rate: 59 Heart Rate: [59] Blood Pressure BP: 107/66 BP: (107)/(66) Respiratory Rate Resp: 16 Resp: [16] SpO2 SpO2: -- WDWN 62 y.o. male in NAD. HEENT-NC/AT; unremarkable Neck-supple without masses or, nodes Chest-few crackles at L base, though these largely cleared with a deep breath Heart-Normal rate and rhythm, without murmers, gallops, or rubs. Abdomen-benign without organomegaly or tenderness Extremities-no cyanosis, clubbing, or edema Skin-scaly rash on L nondenominational Musculoskeletal-no joint swelling, tenderness, redness or deformities Neurologic-Nonfocal, without weakness or sensory deficits Most Recent Chest CT Scan was reviewed by me: Chest CT from today again shows mild subpleural reticulation, notably in the upper lobes anteriorly(previously left greater than right, though now less so) and the middle to lower lung new laterally. There is septal thickening and widespread tubular and cystic bronchiectasis. Notable is proximal bronchiectasis with architectural distortion of the large airways. No tree-in-bud opacifications, groundglass opacifications, or honeycombing. Minimal change from prior studies. I have personally reviewed the PFTs, and my interpretation is as follows: FVC of 2.74L (70% pred), FEV1 of 2.26L (74% pred), FEV1/FVC 82%. Total lung capacity of 73% pred., Residual volume of 64% pred. Diffusing capacity of 75% pred. Resting room air oxygen saturation of 98%. Mild restriction with preserved diffusing capacity and oxygenation. IMPRESSION: In summary, this is a 62 y.o. male with generally nonproductive cough without significant dyspnea on exertion or wheezing at present. Review of the films from 2019 shows a rather extensive left-sided aspiration pneumonitis, but follow-up CT scan from weeks after that event showed resolving injury on the left with evidence of a milder degree of similar abnormalities on the right, As well as mild bilateral bronchiectasis. Though his abnormalities seem more symmetric on his most recentscan performed today, they are not significantly worse than noted previously. I discussed with the patient and his the various issues related to abnormal swallowing, aspiration during eating, aswell as the sense of dysphagia, and suggested that he undergo a modified barium swallow to evaluatehis swallowing mechanisms, as well as an evaluation of his esophagus with upper GI series. Follow-up in 6 months with PFTs or sooner depending upon his symptoms, or abnormalities found on the radiographic studies. Total visit time: 40 minutes documented in this encounter Plan of Treatment Upcoming Encounters Date Type Department Care Team (Late st Contact Info) Description 06/07/2024 9:00 AM EST Appointment [place] [address] 06/07/2024 11:00 AM EST Office [place] [address] Braydon Lunsford MD [facility] [place] [address] Scheduled Referrals Name Type Priority Associated Diagnoses Orde r Schedule Referral to Speech Therapy Outpatient Referral Routine ILD (interstitial lung disease) Bronchiectasis without complication Ordered: 10/07/2022 documented as of this encounter Results * XR Fluoro Esophagram (Double Contrast) (11/25/2022 9:54 AM EDT) Anatomical Region Laterality Modality N/A Radio Fluoroscop y Impressions 11/25/2022 9:59 AM EDT Barium tablet was delayed at the gastroesophageal junction. There is no hiatal hernia. No evident mucosal abnormality/mass or extrinsic compression. This suggests a spasm as the source of the delay in transit. Thank you for letting us participate in the care of this patient. ??If you are a health care provider and have any questions regarding this report, please contact the number below. ??For patients who have questions please contact the health caregivers homecare that requested your imaging first. ? Narrative 11/25/2022 9:59 AM EDT EXAMINATION: XR FLUORO ESOPHAGRAM (DOUBLE CONTRAST) CLINICAL HISTORY: dysphagia, GERD ?esoph dysmotility TECHNIQUE: Double contrast esophagram was performed. Fluoroscopic spot films were obtained. Fluoro time: 0.93 minutes COMPARISON: Modified, same day FINDINGS: The esophagus is normal in course and caliber, and is well distended on double contrast views. ??The mucosal pattern is normal. The gastroesophageal junction is normally positioned. There is delay of the 13 mm barium tablet at the GE junction, including with sips of water, thin barium and thick barium. There is no intrinsic mass or external compression. There are tertiary contractions within the esophagus, some disordered contraction with bolus splitting. No gastroesophageal reflux was elicited with provocative maneuvers. Procedure Note Emeterio Sepulveda MD - 11/25/2022 EXAMINATION: XR FLUORO ESOPHAGRAM (DOUBLE CONTRAST) CLINICAL HISTORY: dysphagia, GERD ?esoph dysmotility TECHNIQUE: Double contrast esophagram was performed. Fluoroscopic spot films wereobtained. Fluoro time: 0.93 minutes COMPARISON: Modified, same day FINDINGS: The esophagus is normal in course and caliber, and is well distended ondouble contrast views. The mucosal pattern is normal. The gastroesophageal junction is normally positioned. There is delay ofthe 13 mm barium tablet at the GE junction, including with sips of water, thinbarium and thick barium. There is no intrinsic mass or external compression. There are tertiary contractions within the esophagus, some disordered contraction with bolus splitting. No gastroesophageal reflux was elicited with provocative maneuvers. IMPRESSION Barium tablet was delayed at the gastroesophageal junction. There is nohiatal hernia. No evident mucosal abnormality/mass or extrinsic compression.This suggests a spasm as the source of the delay in transit. Thank you for letting us participate in the care of this patient. If youare a health care provider and have any questions regarding this report,please contact the number below. For patients who have questions please contactthe health caregivers homecare that requested your imaging first. Electronically signed by: Emeterio Sepulveda MDAd[facility]([phone]), at 11/25/2022 9:59 AM Braydon Dasilva MD IMG FLUORO ORDERABL ES * XR Fluoro Esophagram (Modified/Video Swallow Pharynx) (11/25/2022 9:54 AM EDT) Anatomical Region Laterality Modality N/A Radio Fluoroscop y Impressions 11/25/2022 9:57 AM EDT Normal modified barium swallow. Thank you for letting us participate in the care of this patient. ??If you are a health care provider and have any questions regarding this report, please contact the number below. ??For patients who have questions please contact the health caregivers homecare that requested your imaging first. ? Narrative 11/25/2022 9:57 AM EDT EXAMINATION: XR FLUORO ESOPHAGRAM (MODIFIED/VIDEO SWALLOW PHARYNX) CLINICAL HISTORY: hx aspiration Pulmonary fibrosis, hx aspiration, symptoms of chronic aspiration with dysphagia TECHNIQUE: The examination was performed in conjunction with speech pathology. ??Varying consistencies of barium were administered under lateral fluoroscopic observation. Fluoro time: 1.53 minutes COMPARISON: Double contrast upper GI, same day FINDINGS: The oral phase of swallowing is normal. There is normal elevation of the larynx and normal epiglottic inversion with swallowing. No penetration of the airway or aspiration occurred with any consistency. No residual pooling within the valleculae or piriform sinuses. Procedure Note Emeterio Sepulveda MD - 11/25/2022 EXAMINATION: XR FLUORO ESOPHAGRAM (MODIFIED/VIDEO SWALLOW PHARYNX) CLINICAL HISTORY: hx aspiration Pulmonary fibrosis, hx aspiration, symptoms of chronic aspiration withdysphagia TECHNIQUE: The examination was performed in conjunction with speech pathology.Varying consistencies of barium were administered under lateral fluoroscopic observation. Fluoro time: 1.53 minutes COMPARISON: Double contrast upper GI, same day FINDINGS: The oral phase of swallowing is normal. There is normal elevation of the larynx and normal epiglottic inversionwith swallowing. No penetration of the airway or aspiration occurred with anyconsistency. No residual pooling within the valleculae or piriform sinuses. IMPRESSION Normal modified barium swallow. Thank you for letting us participate in the care of this patient. If youare a health care provider and have any questions regarding this report,please contact the number below. For patients who have questions please contactthe health caregivers homecare that requested your imaging first. Braydon Dasilva MD IMG FLUORO ORDERABL ES documented in this encounter Visit Diagnoses Diagnosis ILD (interstitial lung disease) Postinflammatory pulmonary fibrosis Bronchiectasis without complication Bronchiectasis without acute exacerbation Oropharyngeal dysphagia Dysphagia, oropharyngeal phase ILD (interstitial lung disease) Postinflammatory pulmonary fibrosis Bronchiectasis without complication Bronchiectasis without acute exacerbation documented in this encounter Care Teams Host/Hostess Head Relationship Specialty Start Date End Date Amberdayana DESIRE Parker [address] [place] [address] PCP - General Family Medicine 09/20/17 documented as of this encounter
--- OUTSIDE RECORDS SUMMARY | 2024-03-28 08:23 | XMS_ITS | Encounter Summary ---
[place] [address] Care Team Providers Care [employer] Farm[employer] Coordinator Name Role Phone AraRhodaElenashanita PHIPPS Primary Care Provider Reason for Visit * Reason Onset Date Comments Medication Refill 11/01/2022 Encounter Details Date Type Department Care Team (Late st Contact Info) Description 11/01/2022 Refill [place] [phone] Krisetl Abebe RN Chronic bronchitis, unspecified chronic bronchitis type Social History Tobacco Use Types Packs/Day Years Used Date Smoking Tobacco: Never Smokeless Tobacco: Never Sex and Gender Information Value Date Recorded Sex Assigned at Not on file Gender Identity Not on file Sexual Orientation Not on file documented as of this encounter Miscellaneous Notes * Telephone Encounter - Kristel Abebe RN - 11/01/2022 1:23 PM EDT Rec'd faxed request for refill of Fluticasone/Salm Inh 230/21mcg Pending to Dr. Lunsford. documented in this encounter Plan of Treatment Upcoming Encounters Date Type Department Care Team (Late st Contact Info) Description 06/07/2024 9:00 AM EST Appointment [place] [phone] 06/07/2024 11:00 AM EST Office [place] [address] Braydon Lunsford MD [facility] [address] [place] [address] documented as of this encounter Visit Diagnoses Diagnosis Chronic bronchitis, unspecified chronic bronchitis type documented in this encounter Care Teams [employer] Coordinator Relationship Specialty Start Date End Date Elena Bullock APRN [address] [place] [address] [facility] [address] [place] [address] PCP - General Family Medicine 09/20/17 documented as of this encounter
--- OUTSIDE RECORDS SUMMARY | 2024-03-28 08:23 | XMS_ITS | Encounter Summary ---
Author Organization [facility] [place] [address] Care Team Providers Care Ekg Manager Name Role Phone Elena Bullock APRN Primary Care Provider Encounter Details Date Type Department Care Team (Latest Contact Info) Description 06/30/2023 Travel Social History Tobacco Use Types Packs/Day Years [...] 06/07/2024 9:00 AM EST Appointment [place] [address] 06/07/2024 11:00 AM EST [place] [address] Braydon Lunsford MD [facility] [place] [address] documented as of this encounter Visit Diagnoses Not on filedocumented in this encounter Care Teams Ekg Manager Relationship Specialty Start Date End Date Elena Bullock APRN [address] [place] [address] PCP - General Family Medicine 09/20/17 documented as of this encounter
--- OUTSIDE RECORDS SUMMARY | 2024-03-28 08:23 | XMS_ITS | Encounter Summary ---
Author Organization [facility] [place] [address] Care Team Providers Care [employer] Dean Name Role Phone AmberElena anne APRN Primary Care Provider Encounter Details Date Type Department Care Team (Late st Contact Info) Description 03/23/2023 [place] [phone] Julita Szymanski Social History Tobacco Use Types Packs/Day Years Used Date Smoking Tobacco: Never Smokeless Tobacco: Never Sex and Gender Information Value Date Recorded Sex Assigned at Not on file Gender Identity Not on file Sexual Orientation Not on file documented as of this encounter Miscellaneous Notes * Telephone Encounter - Julita Szymanski - 03/23/2023 12:52 PM EDT Copied from [facility] #[id number]. Topic: Specialty Dept CRMs - Generic Call >> Mar 23, 2023 8:51 AM Baldev Sanchez wrote: Specialist: Dr. Lunsford Relationship (if other than patient-full name): Julia Pattersondagoberto- friend/personal rep Reason for Call: Patient has been scheduled for basic bundle and lung volume pulmonary function tests 06/30/23 at 11am. Follow up with Dr. Lunsford has been rescheduled for the same day at 12pm. documented in this encounter Plan of Treatment Upcoming Encounters Date Type Department Care Team (Late st Contact Info) Description 06/07/2024 9:00 AM EST [place] [address] 06/07/2024 11:00 AM EST [place] [address] Braydon Lunsford MD [facility] [place] [address] documented as of this encounter Visit Diagnoses Not on filedocumented in this encounter Care Teams [employer] Dean Relationship Specialty Start Date End Date Elena Bullock APRN [address] [place] [address] PCP - General Family Medicine 09/20/17 documented as of this encounter
--- OUTSIDE RECORDS SUMMARY | 2024-03-28 08:23 | XMS_ITS | Encounter Summary ---
Author Organization [facility] [place] [address] Care Team Providers Care Freezer Machine Operator Name Role Phone AraElena DESIRE Primary Care Provider [phone] Reason for Visit * Speech Therapy (Routine) - Closed Specialty Diagnoses / Procedures Referred By Leanna sánchez Referred To Contact Speech Therapy Diagnoses ILD (interstitial lung disease) Bronchiectasis without complication Braydon Lunsford MD [facility] [place] [address] [facility] [place] [address] Referral ID Status Reason Start Date Expiration Date V isits Requested Visits Authorized [id number] Closed Evaluate and Treat 10/07/2022 10/07/2023 20 20 Encounter Details Date Type Department Care Team (Latest Contact Info) Description 11/25/2022 9:15 AM EDT Procedure [place] [address] America Aggarwal, TRAM OPERATOR Oral phase dysphagia Social History Tobacco Use Types Packs/Day Years Used Date Smoking Tobacco: Never Smokeless Tobacco: Never Sex and Gender Information Value Date Recorded Sex Assigned at Not on file Gender Identity Not on file Sexual Orientation Not on file documented as of this encounter Miscellaneous Notes * Initial Evaluation - America Aggarwal, TRAM OPERATOR - 11/25/2022 9:15 AM EDT Speech-Language Pathology Modified Barium Swallow Evaluation Patient Name: Zachery Whittaker Date of : 1960 Referring MD: Braydon Lunsford I Date Seen by MD: 10/07/2022 Diagnosis: Dysphagia Date of Onset: +/- 4 years Date of Evaluation: 11/25/2022 Total Treatment Time: 45 minutes Certification Period: Evaluation only Total Timed Code Treatment: 0 minutes Patient Profile: Zachery Whittaker is a 62 y.o. male referred by Dr. Braydon Lunsford I for questionaspiration. This is part of a Combined examination, including Double Contrast Barium Swallow study. Prior Level of Swallow Function: Pt reports that he had a colonoscopy 4 years ago when he aspiratedand ended up in the ICU w/ PNA. Since then he has had worsening s/s GERD, shortness of breath, and coughing w/ solids. Subjective: Pt reports having coughing w/ solids (like steak), and reflux s/s. Objective: Pt seen for evaluation today. Radiologist was present for entire study. Pain: Pt. denies pain at this time. Current Diet: Regular solids, Thin liquids Feeding / Oral Care Status: Pt is independent Cognitive-Linguistic Status: alert, oriented to person, place, and time and affect appropriate to mood Positioning: Sitting in Haustead chair at approximately 85 degrees hip flexion. Oral / Laryngeal Mechanism Clinical Assessment: Lingual: WNL Labial: WNL Velar: elevates promptly and symmetrically Sensation: intact Vocal fold function and airway protection: some shortness of breath, voice clear Mucosa: moist Dentition: missing multiple teeth Bolus Presentation(s): (all mixed with Barium) Thin liquid [place] consistency thickened liquid Puree Dysphagia soft Regular consistency Pill w/ water Oral Preparatory Phase Lip closure: No labial escape Tongue control during bolus hold: Cohesive bolus between tongue to palatal seal Bolus preparation/mastication: Disorganized chewing / mashing with solid pieces of bolus unchewed Bolus transport/Lingual motion: Brisk tongue motion Oral residue: Trace residue lining oral structures Initiation of pharyngeal swallow: Bolus head at posterior angle of ramus (first hyoid excursion) Pharyngeal Phase: Soft palate elevation: No bolus between soft palate / pharyngeal wall Laryngeal elevation: Complete superior movement of thyroid cartilage with complete approximation ofarytenoids to epiglottic petiole Anterior hyoid excursion: Complete anterior movement Epiglottic movement: Complete inversion Laryngeal vestibule closure: Incomplete; narrow column air / contrast in laryngeal vestibule Pharyngeal stripping wave: Present - complete PE segment opening: Complete distension and complete duration; no obstruction of flow Tongue base retraction: Trace column of contrast between tongue base and posterior pharyngeal wall Pharyngeal residue: Trace residue within or on pharyngeal structures Esophageal Phase: Please see Radiology Note from today Double Contrast Barium Swallow study done as well today. Aspiration / Penetration Scale Score (Chi Mckeon et al. Dysphagia, 111995); #1 and #2 both considered WNL in adults 1 = no material enters the airway 2 = material enters the airway, does not touch the vocal cords, and is completely ejected 3 = material enters the airway, does not touch the vocal cords, but is not ejected 4 = material enters the airway, contacts the vocal cords, but is ejected 5 = material enters the airway, contacts the vocal cords, but is not ejected 6 = material enters the airway, passes below the vocal cords, and is ejected 7 = material passes below the vocal cords, is not ejected, but there is effort made to expel material 8 = material passes below the vocal cords, and there is no attempt to eject it Education: The patient has been educated on results and recommendations, and verbalized understanding. Assessment: Pt w/ mild oral phase dysphagia w/ solids due to poor dentition, prolonged mastication and some swallowing of solids that were incompletely chewed. No significant pharyngeal dysphagia wasobserved at this time. Diagnosis: Mild oral dysphagia w/ regular solids Recommendations: Diet: Regular solids, Thin liquids (consider chopping harder to chew solids up into smaller pieces,moistening w/ gravies, sauces, juices, soups, etc.. to soften further as needed) Aspiration precautions: Upright position during meals and for at least 30 mins following Small sips and bites while eating Slow rate; swallow between bites Alternate liquids and solids Excellent oral care Plan: No TRAM OPERATOR dysphagia therapy is indicated at this time. Pt. in agreement with treatment plan. Thank you for this consult with this patient. Please feel free to page me with any questions or concerns. ELLIE SAWYER MA, [facility]-TRAM OPERATOR Pager: [phone] Speech-Language Pathology Outpatient Rehabilitation Department documented in this encounter Plan of Treatment Upcoming Encounters Date Type Department Care Team (Late st Contact Info) Description 06/07/2024 9:00 AM EST [place] [address] 06/07/2024 11:00 AM EST Office [place] [address] Braydon Lunsford MD [facility] [address] [place] [address] Scheduled Referrals Name Type Priority Associated Diagnoses Orde r Schedule Referral to Speech Therapy Outpatient Referral Routine ILD (interstitial lung disease) Bronchiectasis without complication Ordered: 10/07/2022 documented as of this encounter Visit Diagnoses Diagnosis Oral phase dysphagia Dysphagia, oral phase documented in this encounter Care Teams Freezer Machine Operator Relationship Specialty Start Date End Date Amberdayana DESIRE Parker [address] [place] [address] PCP - General Family Medicine 09/20/17 documented as of this encounter
--- OUTSIDE RECORDS SUMMARY | 2024-03-28 08:23 | XMS_ITS | Encounter Summary ---
Author Organization [place] [address] Care Team Providers Care Control Valve Technician Name Role Phone Elena Bullock APRN Primary Care Provider Encounter Details Date Type Department Care Team (Latest Contact Info) Description 10/07/2022 8:27 AM EDT - 10/07/2022 11:59 PM EDT Hospital En[place] [phone] ILD (interstitial lung disease); Chronic bronchitis, unspecified chronic bronchitis type Discharge Disposition: Home Social History Tobacco Use Types Packs/Day Years Used Date Smoking Tobacco: Never Smokeless Tobacco: Never Sex and Gender Information Value Date Recorded Sex Assigned at Not on file Gender Identity Not on file Sexual Orientation Not on file documented as of this encounter Medications at Time of Discharge Medication Sig Dispensed Refills Start Date End Date ascorbic acid, Vitamin C, (Vitamin C) 250 mg tablet Take 500 mg by mouth daily. codeine-guaiFENesin (guaiFENesin AC) 10-100 mg/5 mL Liquid TAKE 5 TO 10 ML BY MOUTH EVERY 6 HOURS NEEDED FOR COUGH 09/09/2021 cetirizine (ZYRTEC) 10 mg Tablet Take 10 mg by mouth daily. loratadine (CLARITIN) 10 mg Tablet Take 10 mg by mouth daily. hydrOXYzine (ATARAX) 25 mg Tablet Take 25 mg by mouth 3 times daily as needed for Itching. naproxen sodium (ANAPROX) 550 mg Tablet Take 550 mg by mouth 2 times daily (with meals). Multivits/Iron Fum/FA/D3/Lycop (MULTI FOR HIM ORAL) Take by mouth. fluticasone propion-salmeteroL (Advair HFA) 230-21 mcg/actuation HFA Aerosol InhalerIndications:Chroni c bronchitis, unspecified chronic bronchitis type Inhale 2 puffs into the lungs 2 times daily. 1 each 11 09/30/2021 11/01/2022 documented as of this encounter Plan of Treatment Upcoming Encounters Date Type Department Care Team (Late st Contact Info) Description 06/07/2024 9:00 AM EST Appointment [place] [address] 06/07/2024 11:00 AM EST Office [place] [phone] Braydon Lunsford MD [facility] [place] [address] documented as of this encounter Procedures Procedure Name Priority Date/Time Associated Diagnosis Comments COMMON PULMONARY FUNCTION TEST Routine 10/07/2022 8:39 AM EDT ILD (interstitial lung disease) Chronic bronchitis, unspecified chronic bronchitis type documented in this encounter Results * Pulmonary Function Testing (10/07/2022 8:39 AM EDT) FVC Actual Pre-BD 2.74 L COMPAS PFT FVC Pre-BD % of Predicted 70 % COMPAS PFT FVC Predicted 3.93 L COMPAS PFT FVC Pre-BD Z-Score -2.04 COMPAS PFT FVC Lower Limits of Normal 2.97 L COMPAS PFT FEV1 Actual Pre-BD 2.26 L COMPAS PFT FEV1 Pre-BD % of Predicted 74 % COMPAS PFT FEV1 Predicted 3.05 L COMPAS PFT FEV1 Pre-BD Z-Score -1.66 COMPAS PFT FEV1 Lower Limits of Normal 2.27 L COMPAS PFT FEV1 / FVC Actual Pre-BD 82 % COMPAS PFT FEV1/FVC Pre-BD Z-Score 0.57 COMPAS PFT FEV1 / FVC LLN 65 % COMPAS PFT [id number] Actual Pre-BD 3.02 L/s COMPAS PFT [id number] Pre-BD % of Predicted 119 % COMPAS PFT [id number] Predicted 2.53 L/s COMPAS PFT XON26-06 Pre-BD Z-Score 0.48 COMPAS PFT DLCO Hb Actual Pre-BD 17.97 mL/min/mmHg COMPAS PFT DLCO Hb Pre-BD % of Predicted 75 % COMPAS PFT DLCO Hb Pre-BD Z-Score -1.61 COMPAS PFT DLCO Hb Predicted 23.97 mL/min/mmHg COMPAS PFT DLCO UNC ACT PRE-BD 17.97 mL/min/mmHg COMPAS PFT DLCO UNC PRE-BD % of PRED 75 % COMPAS PFT DLCO UNC PRE-BD Z-SCORE -1.61 % COMPAS PFT DLCO UNC Predicted 23.97 mL/min/mmHg COMPAS PFT DLCO/VA Actual Pre-BD 4.20 mL/min/mmHg /L COMPAS PFT DLCO/VA Pre-BD % of Predicted 99 % COMPAS PFT DLCO/VA Pre-BD Z-Score -0.09 COMPAS PFT DLCO/VA Predicted 4.26 mL/min/mmHg /L COMPAS PFT FRC Predicted 3.42 L COMPAS PFT FRC Actual Pre-BD 2.23 L COMPAS PFT FRC Pre-BD % of Predicted 65 % COMPAS PFT FRC Pre-BD Z-Score -1.98 COMPAS PFT TLC Predicted 6.36 L COMPAS PFT TLC Actual Pre-BD 4.63 L COMPAS PFT TLC Pre-BD % of Predicted 73 % COMPAS PFT TLC Pre-BD Z-Score -2.47 COMPAS PFT RV Predicted 2.37 L COMPAS PFT RV Actual Pre-BD 1.52 L COMPAS PFT RV Pre-BD % of Predicted 64 % COMPAS PFT RV Pre-BD Z-Score -2.07 COMPAS PFT RVoTLC Predicted 39 % COMPAS PFT RVoTLC Actual Pre-BD 33 % COMPAS PFT RVoTLC Pre-BD % of Predicted 85 % COMPAS PFT RVoTLC Pre-BD Z-Score -1.10 COMPAS PFT VC Predicted 3.93 L COMPAS PFT VC Actual Pre-BD 3.11 L COMPAS PFT VC Pre-BD % of Predicted 79 % COMPAS PFT VC Pre-BD Z-Score -1.39 COMPAS PFT Narrative COMPAS PFT - 10/07/2022 8:39 AM EDT FINDINGS: FEV1 and FVC are reduced, FEV1/VC is normal. The SVC is larger than the FVC and was used to calculate FEV1/VC. TLC is reduced and RV/TLC is not increased. Diffusion capacity is normal. IMPRESSION: Mild restriction. No diffusion impairment. Compared to the last study on 04/08/22, the FVC is not significantly changed and the FEV1 decreased by 0.47 L. Normal resting oximetry on room air. Procedure Note Maximiliano Schneider MD - 10/07/2022 FINDINGS: FEV1 and FVC are reduced, FEV1/VC is normal. The SVC is largerthan the FVC and was used to calculate FEV1/VC. TLC is reduced and RV/TLC is not increased.Diffusion capacity is normal. IMPRESSION: Mild restriction. No diffusion impairment. Compared tothe last study on 04/08/22, the FVC is not significantly changed and the FEV1 decreased by0.47 L. Normal resting oximetry on room air. Braydon Dasilva MD PFT ORDERABLES COMPAS PFT documented in this encounter Visit Diagnoses Diagnosis ILD (interstitial lung disease) Postinflammatory pulmonary fibrosis Chronic bronchitis, unspecified chronic bronchitis type documented in this encounter Care Teams Control Valve Technician Relationship Specialty Start Date End Date Elena Bullock APRN [address] [place] [address] PCP - General Family Medicine 09/20/17 documented as of this encounter
--- OUTSIDE RECORDS SUMMARY | 2024-03-28 08:23 | XMS_ITS | Encounter Summary ---
Author Organization [facility] Address [facility] [place] [address] Care Team Providers Care Surveyor Chain Helper Name Role Phone Elena Bullock APRN Primary Care Provider Encounter Details Date Type Department Care Team (Late st Contact Info) Description 11/02/2021 [place] [phone] Julita Szymanski Social History Tobacco Use Types [...] 06/07/2024 9:00 AM EST [place] [phone] 06/07/2024 11:00 AM EST [place] [phone] Braydon Lunsford MD [facility] [place] [address] documented as of this encounter Visit Diagnoses Not on filedocumented in this encounter Care Teams Surveyor Chain Helper Relationship Specialty Start Date End Date Elena Bullock APRN [address] [place], [place] [address] PCP - General Family Medicine 09/20/17 documented as of this encounter
--- OUTSIDE RECORDS SUMMARY | 2024-03-28 08:23 | XMS_ITS | Encounter Summary ---
Author Organization [facility] Address [facility] [place] [address] Care Team Providers Care Transporter Radiology Name Role Phone Ara Elena PHIPPS Primary Care Provider [phone] Encounter Details Date Type Department Care Team (Latest Contact Info) Description 11/25/2022 8:44 AM EDT - 11/25/2022 11:59 PM EDT Hospital Encounter XRay at [address] [place] [address] Braydon Lunsford MD [facility] [place] [address] ILD (interstitial lung disease); Bronchiectasis without complication Discharge Disposition: Home Social History Tobacco Use [...] lungs 2 times daily. 1 each 11 11/01/2022 06/30/2023 documented as of this encounter Plan of Treatment Upcoming Encounters Date Type Department Care Team (Late st Contact Info) Description 06/07/2024 9:00 AM EST Appointment [place] [phone] 06/07/2024 11:00 AM EST [place] [phone] Braydon Lunsford MD [facility] [place] [address] documented as of this encounter Procedures Procedure Name Priority Date/Time Associated Diagnosis Comments XR FLUORO BARIUM SWALLOW (DOUBLE CONTRAST) Routine 11/25/2022 9:54 AM EDT ILD (interstitial lung disease) Bronchiectasis without complication XR FLUORO BARIUM SWALLOW (MODIFIED/VIDEO SWALLOW PHARYNX) Routine 11/25/2022 9:54 AM EDT ILD (interstitial lung disease) Bronchiectasis without complication documented in this encounter Results * XR Fluoro Esophagram [...] who have questions please contact the health healthcare market consultant that requested your imaging first. ? Electronically signed by: Emeterio Sepulveda MD, [facility] ([phone]), at 11/25/2022 9:59 AM Narrative 11/25/2022 9:59 AM EDT EXAMINATION: XR [...] patients who have questions please contactthe health healthcare market consultant that requested your imaging first. Electronically signed by: Emeterio Sepulveda MD, [facility]([phone]), at 11/25/2022 9:59 AM Braydon Dasilva MD [...] who have questions please contact the health healthcare market consultant that requested your imaging first. ? Electronically signed by: Emeterio Sepulveda MD, [facility] ([phone]), at 11/25/2022 9:57 AM Narrative 11/25/2022 9:57 AM EDT EXAMINATION: XR [...] patients who have questions please contactthe health healthcare market consultant that requested your imaging first. Electronically signed by: Emeterio Sepulveda MD, [facility]([phone]), at 11/25/2022 9:57 AM Braydon Dasilva MD IMG FLUORO ORDERABL ES documented in this encounter Visit Diagnoses Diagnosis ILD (interstitial lung disease) Postinflammatory pulmonary fibrosis Bronchiectasis without complication Bronchiectasis without acute exacerbation documented in this encounter Administered Medications Inactive Administered Medications - up to 3 most recent administrations Medication Order MAR Action Action Date Dose Rate Site barium sulfate (E-Z Disk) tablet 0-700 mg 0-700 mg, Oral, ONCE PRN, 1 dose, Starting on Mon11/25/22 at 0949, Until Mon11/25/22 at 0949, Per Protocol, Radiology Contrast, Routine Given 11/25/2022 9:49 AM EDT 700 mg barium sulfate (E-Z-HD) 98% oral liquid 0-120 mL 0-120 mL, Oral, ONCE PRN, 1 dose, Starting on Mon11/25/22 at 0949, Until Mon11/25/22 at 0952, Per Protocol, Radiology Contrast, Routine Given 11/25/2022 9:52 AM EDT 60 mLs barium sulfate (Ezpaque) 60% (w/v) oral liquid 0-710 mL 0-710 mL, Oral, ONCE PRN, 1 dose, Starting on Mon11/25/22 at 0949, Until Mon11/25/22 at 0951, Per Protocol, Radiology Contrast, Routine Given 11/25/2022 9:51 AM EDT 75 mLs documented in this encounter Care Teams Transporter Radiology Relationship Specialty Start Date End Date Ara Elena, DESIRE [address] [place] [address] [address] [place] [address] PCP - General Family Medicine 09/20/17 documented as of this encounter
--- OUTSIDE RECORDS SUMMARY | 2024-03-28 08:23 | XMS_ITS | Encounter Summary ---
Author Organization [facility] [place] [address] Care Team Providers Care Electric Meter Technician Name Role Phone Ara Elena PHIPPS Primary Care Provider Encounter Details Date Type Department Care Team (Latest Contact Info) Description 09/30/2021 9:30 AM EDT - 09/30/2021 11:59 PM EDT Hospital [place] [phone] Cough due to PACO inhibitor Discharge Disposition: Home Social History Tobacco Use Types Packs/Day Years Used Date Smoking Tobacco: Never Smokeless Tobacco: Never Sex and Gender Information Value Date Recorded Sex Assigned at Not on file Gender Identity Not on file Sexual Orientation Not on file documented as of this encounter Medications at Time of Discharge Medication Sig Dispensed Refills Start Date End Date codeine-guaiFENesin (guaiFENesin AC) 10-100 mg/5 mL Liquid [...] 06/07/2024 9:00 AM EST Appointment [place] [address] 06/07/2024 11:00 AM EST [place] [phone] Braydon Lunsford MD [facility] [place] [address] documented as of this encounter Procedures Procedure Name Priority Date/Time Associated Diagnosis Comments COMMON PULMONARY FUNCTION TEST Routine 09/30/2021 9:39 AM EDT Cough due to PACO inhibitor documented in this encounter Results * Pulmonary Function Testing (09/30/2021 9:39 AM EDT) FVC Actual Pre-BD 3.03 L COMPAS PFT FVC Pre-BD % of Predicted 76 % COMPAS PFT FVC Predicted 3.99 L COMPAS PFT FVC Pre-BD Z-Score -1.63 COMPAS PFT FVC Lower Limits of Normal 3.02 L COMPAS PFT FEV1 Actual Pre-BD 2.52 L COMPAS PFT FEV1 Pre-BD % of Predicted 81 % COMPAS PFT FEV1 Predicted 3.10 L COMPAS PFT FEV1 Pre-BD Z-Score -1.22 COMPAS PFT FEV1 Lower Limits of Normal 2.31 L COMPAS PFT FEV1 / FVC Actual Pre-BD 83 % COMPAS PFT FEV1/FVC Pre-BD Z-Score 0.73 COMPAS PFT FEV1 / FVC LLN 65 % COMPAS PFT [id number] Actual Pre-BD 3.12 L/s COMPAS PFT OQO03-46 Pre-BD % of Predicted 120 % COMPAS PFT YYR38-81 Predicted 2.59 L/s COMPAS PFT [id number] Pre-BD Z-Score 0.52 COMPAS PFT Narrative COMPAS PFT - 09/30/2021 9:39 AM EDT FINDINGS: FEV1, FVC, and FEV1/VC are within normal limits. IMPRESSION: Normal spirometry. Procedure Note Timothy Holguni MD - 09/30/2021 FINDINGS: FEV1, FVC, and FEV1/VC are within normal limits. IMPRESSION:Normal spirometry. Braydon Dasilva MD PFT ORDERABLES COMPAS PFT documented in this encounter Visit Diagnoses Diagnosis Cough due to PACO inhibitor Cough documented in this encounter Care Teams Electric Meter Technician Relationship Specialty Start Date End Date Elena Bullock APRN [address] [place] [address] PCP - General Family Medicine 09/20/17 documented as of this encounter
--- OUTSIDE RECORDS SUMMARY | 2024-03-28 08:23 | XMS_ITS | Encounter Summary ---
Author Organization [facility] [place] [address] Care Team Providers Care Hair Spinner Name Role Phone AmberElena anne DESIRE Primary Care Provider [phone] Reason for Referral * Diagnostic Test (Routine) - Closed Specialty Diagnoses / Procedures Referred By Contac t Referred To Contact Radiology Diagnoses ILD (interstitial lung disease) Chronic bronchitis, unspecified chronic bronchitis type Procedures CT Chest wo Contrast (Generic) Braydon Lunsford MD [facility] [place] [address] [facility] [place] [address] Referral ID Status Reason Start Date Expiration Date V isits Requested Visits Authorized [id number] Closed Specialty Service Requested 04/08/2022 10/07/2023 1 1 Encounter Details Date Type Department Care Team (Late st Contact Info) Description 04/08/2022 9:30 AM EST Office [place] [address] Braydon Lunsford MD [facility] [place] [address] ILD (interstitial lung disease); Chronic bronchitis, unspecified [...] Sign Reading Time Taken Comments Blood Pressure 103/51 04/08/2022 9:20 AM EST Pulse 72 04/08/2022 9:20 AM EST Temperature 36.5 ??C (97.7 ??F) 04/08/2022 9:20 AM ES T Respiratory Rate 18 04/08/2022 9:20 AM EST Oxygen Saturation 97% 04/08/2022 9:20 AM EST Inhaled Oxygen Concentration - - Weight 84 kg (185 lb 3 oz) 04/08/2022 9:20 AM ES T Height 168.4 cm (5' 6.3) 04/08/2022 9:20 AM EST Body Mass Index 29.62 04/08/2022 9:20 AM EST documented in this encounter Progress Notes * Braydon Lunsford MD - 04/08/2022 9:30 AM EST Images from the original note were not included. SECTION OF PULMONARY AND CRITICAL CARE?? Pulmonary [place] [address] Outpatient Follow-up Follow-up 62 y.o. male with a history of cough when he developed an apparent URI. Over [...] curious episode 3 years ago following a colonoscopy during which he apparently aspirated and developed an extensive right-sided pneumonitis, treated with several courses of steroids, antibiotics, bronchodilators and over the course of the was seen multiple times by Dr. Amanda Gallardo at [facility], who found his pulmonary function studies to be unrevealing (and treated him with multiple courses of steroids). Her last note from that timeframe indicated that he had completely resolved all symptoms of cough, dyspnea, wheezing. 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 He has had no systemic symptoms, nor neil arthritis, skin rashes, or true dysphagia. He has an intermittent nonproductive cough, for which he uses Advair twice daily though, usually j luis prn basis. He has benefited from Tessalon, as well as elevating the head of his bed. He still gets occasional cough associated with eating, though this has improved. He has mild stable dyspnea on exertion, without significant change since 2019. PAST MEDICAL HISTORY: Patient Active Problem List Diagnosis Code ??? Other neutropenia D70.8 ??? Thrombocytopenia D69.6 ??? Anemia, macrocytic D53.9 ??? Hyperlipidemia E78.5 ??? Diverticulosis of large intestine without perforation or abscess with bleeding K57.31 MEDICATIONS: Current Outpatient Medications Medication Sig Dispense Refill ??? fluticasone propion-salmeteroL (Advair HFA) 230-21 mcg/actuation HFA Aerosol Inhaler Inhale 2 puffs into the lungs 2 times daily. 1 each 11 ??? cetirizine (ZYRTEC) 10 mg Tablet Take 10 mg by mouth daily. ??? Multivits/Iron Fum/FA/D3/Lycop (MULTI FOR HIM ORAL) Take by mouth. ??? codeine-guaiFENesin (guaiFENesin AC) 10-100 mg/5 mL Liquid TAKE 5 TO 10 ML BY MOUTH EVERY 6 HOURS NEEDED FOR COUGH ??? loratadine (CLARITIN) 10 mg Tablet Take [...] value Range last 24 hrs Temperature Temp: 36.5 ??C (97.7 ??F) Temp: [36.5 ??C (97.7 ??F)] Heart Rate Heart Rate: 72 Heart Rate: [72] Blood Pressure BP: 103/51 BP: (103)/(51) Respiratory Rate Resp: 18 Resp: [18] SpO2 SpO2: 97 % SpO2: [97 %] WDWN 62 y.o. male in NAD. HEENT-NC/AT; [...] No tree-in-bud opacifications, groundglass opacifications, or honeycombing. No significant change from prior studies. I have personally reviewed the PFTs, and my interpretation is as follows: FVC of 3.03L (76% pred), FEV1 of 2.52L (81% pred), FEV1/FVC 83%. Diffusing capacity was not performed. Normal spirometry. IMPRESSION: In summary, this is a 62 [...] but clearly present bilaterally on that scan. He has had very mild peripheral eosinophilia, an elevated sedimentation rate, likely reflective of chronic recurrent bronchitis/bronchiectasis possibly due to chronic aspiration. I reiterated precautions for GERD, and I will plan on fo llowing up with him in about 6 months with a repeat HRCT and PFTs. Total visit time: 40 minutes documented in this encounter Plan of Treatment Upcoming Encounters Date Type Department Care Team (Late st Contact Info) Description 06/07/2024 9:00 AM EST [place] [address] 06/07/2024 11:00 AM EST [place] [phone] Braydon Lunsford MD [facility] [place] [address] documented as of this encounter Results * Pulmonary Function Testing [...] / FVC LLN 65 % COMPAS PFT [id number] Actual Pre-BD 3.02 L/s COMPAS PFT [id number] Pre-BD % of Predicted 119 % COMPAS PFT [id number] Predicted 2.53 L/s COMPAS PFT [id number] Pre-BD Z-Score 0.48 COMPAS PFT DLCO Hb [...] Dasilva MD PFT ORDERABLES COMPAS PFT * CT Chest wo Contrast (Generic) (10/07/2022 8:19 AM EDT) Anatomical Region Laterality Modality Chest Computed Tomogra phy Impressions 10/07/2022 9:08 AM EDT 1. ??Stable from 2021 but progressed from 2019 midlung predominant peripheral fibrosis. ??Per Fleischner Society guidelines, this would be most consistent with a non-usual interstitial pneumonia diagnosis. ??Differential diagnosis would include chronic aspiration pneumonitis, eosinophilic pneumonitis, atypical organizing pneumonitis, inhalation injury, and drug reaction, amongst others. 2. ??Debris within the esophagus associated with transmural thickening, may be related to dysmotility and/or reflux disease with associated esophagitis. Correlation with patient symptomatology is recommended. Thank you for letting us participate in the care of this patient. ??If you are a health care provider and have any questions regarding this report, please contact the number below. ??For patients who have questions please contact the health resident care provider that requested your imaging first. ? Narrative 10/07/2022 9:08 AM EDT EXAMINATION: CT CHEST WO CONTRAST (GENERIC) CLINICAL HISTORY: 62-year-old male with interstitial lung disease. ??Follow-up of fibrosing interstitial lung disease. TECHNIQUE: Helical CT of the chest without intravenous contrast administration. Thin-section reconstructions as well as coronal and sagittal reformatted images were generated. ??The department high resolution protocol was utilized with both inspiratory and expiratory supine imaging as well as prone inspiratory imaging. COMPARISON: Comparison is made to multiple prior CT of the chest examinations, the most recent which is dated September 15, 2021. FINDINGS: Limitations: Lack of intravenous contrast limits evaluation of the visceral organs, mediastinum, and vascular structures. Section Hand Helper Images: Noncontributory. Pulmonary parenchyma: There is midlung predominant and peripheral predominant subpleural reticulation and fibrosis associated with bronchiolectasis. ??There is no dominant honeycombing. ??There is no dominant cystic or nodular lung disease. Within the regions of preserved pulmonary parenchyma, there is a normal appearance of the secondary pulmonary lobule. ??There is no significant air trapping on expiration. ??Findings persist on prone imaging. ??Overall, these findings appear unchanged as compared to September 15, 2021, but progressed as compared to August 22, 2018. Airways: As detailed above. Pleura: There is no pleural effusion or pneumothorax. Lymph nodes: There are no pathologically enlarged lymph nodes. ??There are several prominent but subcentimeter lymph nodes, which are likely reactive. Heart and vasculature: Cardiac size is within normal limits. ??There is physiologic pericardial fluid. ??There is minimal atherosclerotic calcification of the coronary arteries. ??The unenhanced aorta and pulmonary arteries are normal in course. Other mediastinal structures: There is transmural thickening throughout the esophagus with intraluminal debris. ??The mediastinal fat is preserved. Inferior neck: Visualized structures within the inferior neck are within normal limits. Upper abdomen: Visualized structures within the superior abdomen are unremarkable. Skeletal structures: There are no suspicious osseous lesions. ??There are mild degenerative changes of visualized spine with endplate sclerosis and osteophyte formation. ??There are mild arthritic changes of bilateral glenohumeral joints. Procedure Note Felipe Gu, DO - 10/07/2022 EXAMINATION: CT CHEST WO CONTRAST (GENERIC) CLINICAL HISTORY: 62-year-old male with interstitial lung disease.Follow-up of fibrosing interstitial lung disease. TECHNIQUE: Helical CT of the chest without intravenous contrastadministration. Thin-section reconstructions as well as coronal and sagittal reformattedimages were generated. The department high resolution protocol was utilized withboth inspiratory and expiratory supine imaging as well as prone inspiratoryimaging. COMPARISON: Comparison is made to multiple prior CT of the chestexaminations, the most recent which is dated September 15, 2021. FINDINGS: Limitations: Lack of intravenous contrast limits evaluation of thevisceral organs, mediastinum, and vascular structures. Section Hand Helper Images: Noncontributory. Pulmonary parenchyma: There is midlung predominant and peripheralpredominant subpleural reticulation and fibrosis associated with bronchiolectasis.There is no dominant honeycombing. There is no dominant cystic or nodular lungdisease. Within the regions of preserved pulmonary parenchyma, there is a normal appearance of the secondary pulmonary lobule. There is no significantair trapping on expiration. Findings persist on prone imaging. Overall,these findings appear unchanged as compared to September 15, 2021, but progressedas compared to August 22, 2018. Airways: As detailed above. Pleura: There is no pleural effusion or pneumothorax. Lymph nodes: There are no pathologically enlarged lymph nodes. Thereare several prominent but subcentimeter lymph nodes, which are likelyreactive. Heart and vasculature: Cardiac size is within normal limits. There is physiologic pericardial fluid. There is minimal atheroscleroticcalcification of the coronary arteries. The unenhanced aorta and pulmonary arteriesare normal in course. Other mediastinal structures: There is transmural thickening throughoutthe esophagus with intraluminal debris. The mediastinal fat is preserved. Inferior neck: Visualized structures within the inferior neck are withinnormal limits. Upper abdomen: Visualized structures within the superior abdomen are unremarkable. Skeletal structures: There are no suspicious osseous lesions. There aremild degenerative changes of visualized spine with endplate sclerosis andosteophyte formation. There are mild arthritic changes of bilateral glenohumeraljoints. IMPRESSION 1. Stable from 2022 but progressed from 2019 midlung predominantperipheral fibrosis. Per Fleischner Society guidelines, this would be mostconsistent with a non-usual interstitial pneumonia diagnosis. Differential diagnosiswould include chronic aspiration pneumonitis, eosinophilic pneumonitis,atypical organizing pneumonitis, inhalation injury, and drug reaction, amongstothers. 2. Debris within the esophagus associated with transmural thickening, maybe related to dysmotility and/or reflux disease with associated esophagitis. Correlation with patient symptomatology is recommended. Thank you for letting us participate in the care of this patient. If youare a health care provider and have any questions regarding this report,please contact the number below. For patients who have questions please contactthe health resident care provider that requested your imaging first. Braydon Dasilva MD IMG CT ORDERABLES documented in this encounter Visit Diagnoses Diagnosis ILD (interstitial lung disease) Postinflammatory pulmonary fibrosis Chronic bronchitis, unspecified chronic bronchitis type Bronchiectasis without complication Bronchiectasis without acute exacerbation ILD (interstitial lung disease) Postinflammatory pulmonary fibrosis Chronic bronchitis, unspecified chronic bronchitis type ILD (interstitial lung disease) Postinflammatory pulmonary fibrosis Chronic bronchitis, unspecified chronic bronchitis type documented in this encounter Care Teams Hair Spinner Relationship Specialty Start Date End Date Elena BullockDESIRE [address] [place] [address] PCP - General Family Medicine 09/20/17 documented as of this encounter
--- OUTSIDE RECORDS SUMMARY | 2024-03-28 08:23 | XMS_ITS | Clinical Summary ---
Author Organization [facility] [place] [address] Care Team Providers Care Implant Polisher Name Role Phone Elena Bullock APRN Primary Care Provider [phone] Allergies Active Allergy Reactions Criticality Noted Date Comments Amoxicillin-Pot Clavulanate Other (See Comments) Medium 09/20/2017 Turned skin yellow Pollen Extracts 09/20/2017 Medications Medication Sig Dispensed Refills Start Date End Date Status hydrOXYzine (ATARAX) 25 mg Tablet Take 25 mg by mouth 3 times daily as needed for Itching. Active naproxen sodium (ANAPROX) 550 mg Tablet Take 550 mg by mouth 2 times daily (with meals). Active Multivits/Iron Fum/FA/D3/Lycop (MULTI FOR HIM ORAL) Take by mouth. Active loratadine (CLARITIN) 10 mg Tablet Take 10 mg by mouth daily. Active cetirizine (ZYRTEC) 10 mg Tablet Take 10 mg by mouth daily. Active codeine-guaiFENesin (guaiFENesin AC) 10-100 mg/5 mL Liquid TAKE 5 TO 10 ML BY MOUTH EVERY 6 HOURS NEEDED FOR COUGH 09/09/2021 Active ascorbic acid, Vitamin C, (Vitamin C) 250 mg tablet Take 500 mg by mouth daily. Active fluticasone propion-salmeteroL (Advair HFA) 230-21 mcg/actuation HFA Aerosol InhalerIndications:C hronic bronchitis, unspecified chronic bronchitis type Inhale 2 puffs into the lungs 2 times daily. 2 each 5 06/30/2023 Active doxycycline (Vibramycin) 100 mg capsuleIndications:C hronic bronchitis, unspecified chronic bronchitis type Take 1 capsule by mouth 2 times daily. 20 capsule 1 06/30/2023 Active Ventolin HFA 90 mcg/actuation inhaler (HFA)Indications:Chr onic bronchitis, unspecified chronic bronchitis type Inhale 2 puffs into the lungs every 4 hours as needed for Wheezing or Shortness of Breath. 1 each 5 02/29/2024 Active Active Problems Problem Noted Date Diagnosed Date Other neutropenia 10/31/2021 Thrombocytopenia 10/31/2021 Anemia, macrocytic 10/31/2021 Hyperlipidemia 10/31/2021 Diverticulosis of large inte ruy without perforation or abscess with bleeding 10/31/2021 Encounters Date Type Department Care Team Description 02/28/2024 Telephone [place] [address] Kristel Abebe RN Medication Change/management (Albuterol) 02/19/2024 [place] [address] Julita Szymanski from Last 3 Months Immunizations Name Administration Dates Next Due Td Adult (not absorbed) 07/09/1999 Social History Tobacco Use Types Packs/Day Years Used Date Smoking Tobacco: Never Smokeless Tobacco: Never Tobacco Cessation:Counseling Given: Not Answered Sex and Gender Information Value Date Recorded Sex Assigned at Not on file Gender Identity Not on file Sexual Orientation Not on file Last Filed Vital Signs Vital Sign Reading Time Taken Comments Blood Pressure 115/59 06/30/2023 11:50 AM EST Pulse 77 06/30/2023 11:50 AM EST Temperature 36.4 ??C (97.5 ??F) 06/30/2023 11:[address] Respiratory Rate 16 06/30/2023 11:50 AM EST Oxygen Saturation 98% 06/30/2023 11:50 AM EST Inhaled Oxygen Concentration - - Weight 85 kg (187 lb 6.3 oz) 06/30/2023 11:50 AM EST Height 167.7 cm (5' 6.02) 06/30/2023 11:[address] Body Mass Index 30.22 06/30/2023 11:50 AM EST Plan of Treatment Upcoming Encounters Date Type Department Care Team (Late st Contact Info) Description 06/07/2024 9:00 AM EST Appointment [place] [address] 06/07/2024 11:00 AM EST Office [place] [phone] Braydon Lunsford MD [facility] [place] [address] Health Maintenance Due Date Last Done Comments CT Colonography 1959 Colonoscopy 1959 Colorectal Cancer Screening 1959 FIT DNA 1959 FIT 1959 Sigmoidoscopy (10 year) with FIT yearly 1959 Sigmoidoscopy 1959 Pneumoccocal Vaccine: 65+ (1 of 2 - PCV) 1965 HIV screen 1977 Hepatitis C Screening 1977 Lipid Screening 1977 Zoster vaccine (1 of 2) 1978 Tetanus/Diphtheria/Pertussis Vaccines (1 - Tdap) 07/10/1999 07/09/1999 Advance Directive 2014 Covid-19 Vaccine (1 - season) 2024 Influenza (Flu) vaccine (1 o f 1 - Influenza standard series) 01/28/2024 Diabetes Screening (HgbA1C o r Glucose) 09/30/2024 09/30/2021, 12/20/2017, 09/20/2017 Procedures Procedure Name Priority Date/Time Associated Diagnosis Comments COMPREHENSIVE METABOLIC PANEL Routine 09/30/2021 12:33 PM EDT LUQUE (dyspnea on exertion) ILD (interstitial lung disease) from Last 3 Months or Most Recently Relevant to Health Maintenance Results * (ABNORMAL) Comprehensive metabolic panel (non-fasting) (09/30/2021 12:33 PM EDT) Glucose 99 65 - 199 mg/dL [facility] Comment:Diabetes: >=200 mg/d L plus symptoms Blood Urea Nitrogen 12 10 - 20 mg/dL [facility] Creatinine 0.76(L) 0.80 - 1.50 mg/dL [facility] Sodium 137 135 - 145 mmol/L [facility] Potassium 4.1 3.5 - 5.0 mmol/L [facility] Comment: Please note: ??Patients with WBC >100,000 may have falsely elevated Potassium levels. ??For accurate Potassium quantification in these patients send serum separator tube (gold top) for subsequent determinations. ??Contact the Clinical Chemistry Laboratory if there are any questions. Chloride 101 98 - 107 mmol/L [facility] Carbon Dioxide 24 22 - 31 mmol/L [facility] Anion Gap 12 5 - 15 mmol/L [facility] Calcium 9.5 8.5 - 10.5 mg/dL [facility] Protein, Total 7.8 6.1 - 8.0 g/dL [facility] Albumin 4.2 3.2 - 5.2 g/dL [facility] Aspartate Aminotransferase 23 0 - 39 unit/L [facility] Alanine Aminotransferase 19 0 - 55 unit/L [facility] Alkaline Phosphatase 65 40 - 130 unit/L [facility] Bilirubin, Total 0.4 0.2 - 1.3 mg/dL [facility] Est Glomerular Filtration Rate 98 >=60 mL/min/1. 73 m?? [facility] Comment: This patient? s [...] Lab Braydon Dasilva MD CHEMISTRY ORDERABLE S [facility] [place] [address] from Last 3 Months or Most Recently Relevant to Health Maintenance Advance Directives Documents on File Type Date Recorded Patient Senior Rd Engineer Expl anation Personal Senior Rd Engineer 09/21/2017 3:26 PM Bertha Snow Care Teams Implant Polisher Relationship Specialty Start Date End Date Elena Bullock APRN [address] [place], [place] [id number] PCP - General Family Medicine 09/20/17
--- OUTSIDE RECORDS SUMMARY | 2024-03-28 08:23 | XMS_ITS | Encounter Summary ---
[place] [address] Care Team Providers Care Edge Stripper Name Role Phone QueElena bender DESIRE Primary Care Provider [phone] Reason for Visit * Reason Onset Date Comments Medication Change/management 02/28/2024 Alb uterol Encounter Details Date Type Department Care Team (Late st Contact Info) Description 02/28/2024 [place] [phone] Kristel Abebe RN Medication Change/management (Albuterol) Social History Tobacco Use Types Packs/Day Years Used Date Smoking Tobacco: Never Smokeless Tobacco: Never Sex and Gender Information Value Date Recorded Sex Assigned at Not on file Gender Identity Not on file Sexual Orientation Not on file documented as of this encounter Miscellaneous Notes * Telephone Encounter - Kristel Abebe RN - 02/28/2024 2:58 PM EDT RN rec'd mailed letter from [facility] [employer], stating that patient's Albuterol Aer HFA was no longer covered by insurance, and alternative was: Albuterol HFA (Proair) Ventolin HFA Levalbuterol HFA RN called to Jean Carlos Pradhan, whom confirmed that last script has been processed through insurance provider. documented in this encounter Plan of Treatment Upcoming Encounters Date Type Department Care Team (Late st Contact Info) Description 06/07/2024 9:00 AM EST [place] [address] 06/07/2024 11:00 AM EST [place] [address] Braydon Lunsford MD [facility] [place] [address] documented as of this encounter Visit Diagnoses Diagnosis Chronic bronchitis, unspecified chronic bronchitis type documented in this encounter Care Teams Edge Stripper Relationship Specialty Start Date End Date Elena Bullock APRN [address] [place] [address] PCP - General Family Medicine 09/20/17 documented as of this encounter
--- OUTSIDE RECORDS SUMMARY | 2024-03-28 08:23 | XMS_ITS | Encounter Summary ---
Author Organization [facility] [place] [address] Care Team Providers Care Chicken Raiser Name Role Phone Elena Bullock APRN Primary Care Provider [phone] Encounter Details Date Type Department Care Team (Latest Contact Info) Description 04/08/2022 8:51 AM EST - 04/08/2022 11:59 PM EST Hospital [place] [phone] ILD (interstitial lung disease); Chronic bronchitis, unspecified [...] the lungs 2 times daily. 1 each 09/30/2021 11/01/2022 documented as of this encounter Plan of Treatment Upcoming Encounters Date Type Department Care Team (Late st Contact Info) Description 06/07/2024 9:00 AM EST [place] [address] 06/07/2024 11:00 AM EST [place] [phone] Braydon Lunsford MD [facility] [place] [address] documented as of this encounter Procedures Procedure Name Priority Date/Time Associated Diagnosis Comments COMMON PULMONARY FUNCTION TEST Routine 04/08/2022 8:59 AM EST ILD (interstitial lung disease) Chronic bronchitis, unspecified [...] / FVC LLN 65 % COMPAS PFT [id number] Actual Pre-BD 4.99 L/s COMPAS PFT [id number] Pre-BD % of Predicted 195 % COMPAS PFT [id number] Predicted 2.56 L/s COMPAS PFT [id number] Pre-BD Z-Score 2.09 COMPAS PFT Narrative COMPAS [...] type documented in this encounter Care Teams Chicken Raiser Relationship Specialty Start Date End Date Elena Bullock APRN [address] [place] [address] PCP - General Family Medicine 09/20/17 documented as of this encounter
--- OUTSIDE RECORDS SUMMARY | 2024-03-28 08:23 | XMS_ITS | Encounter Summary ---
Author Organization [facility] [place] [address] Care Team Providers Care Tuck Pointer Name Role Phone Ara Elena PHIPPS Primary Care Provider Reason for Referral * Diagnostic Test (Routine) - Closed Specialty Diagnoses / Procedures Referred By Contac t Referred To Contact Radiology Diagnoses ILD (interstitial lung disease) Chronic bronchitis, unspecified chronic bronchitis type Procedures CT Chest wo Contrast (Generic) Braydon Lunsford MD [facility] [place] [address] [facility] [place] [address] Referral ID Status Reason Start Date Expiration Date V isits Requested Visits Authorized [id number] Closed Specialty Service Requested 04/08/2022 10/07/2023 1 1 Reason for Visit * Diagnostic Test (Routine) - Closed Specialty Diagnoses / Procedures Referred By Contac t Referred To Contact Radiology Diagnoses ILD (interstitial lung disease) Chronic bronchitis, unspecified chronic bronchitis type Procedures CT Chest wo Contrast (Generic) Braydon Lunsford MD [facility] [place] [address] [facility] [place] [address] Referral ID Status Reason Start Date Expiration Date V isits Requested Visits Authorized [id number] Closed Specialty Service Requested 04/08/2022 10/07/2023 1 1 Encounter Details Date Type Department Care Team (Latest Contact Info) Description 10/07/2022 8:00 AM EDT - 10/07/2022 8:26 AM EDT Hospital [place] [address] Braydon Lunsford MD [facility] [place] [address] ILD (interstitial lung disease); Chronic bronchitis, unspecified [...] 06/07/2024 9:00 AM EST [place] [address] 06/07/2024 11:00 AM EST Office [place] [address] Braydon Lunsford MD [facility] [place] [address] documented as of this encounter Procedures Procedure Name Priority Date/Time Associated Diagnosis Comments CT CHEST WO CONTRAST (GENERIC) Routine 10/07/2022 8:19 AM EDT ILD (interstitial lung disease) Chronic bronchitis, unspecified chronic bronchitis type documented in this encounter Results * CT Chest wo Contrast (Generic) (10/07/2022 8:19 AM EDT) Anatomical Region Laterality Modality Chest Computed Tomogra phy Impressions 10/07/2022 9:08 AM EDT 1. ??Stable from 2021 but progressed from 2018 midlung predominant peripheral fibrosis. ??Per Fleischner Society [...] who have questions please contact the health customer care team coach that requested your imaging first. ? Narrative [...] the visceral organs, mediastinum, and vascular structures. Feed Handler Images: Noncontributory. Pulmonary parenchyma: There is midlung [...] bilateral glenohumeral joints. Procedure Note Felipe Gu, - 10/07/2022 EXAMINATION: CT CHEST WO CONTRAST [...] of thevisceral organs, mediastinum, and vascular structures. Feed Handler Images: Noncontributory. Pulmonary parenchyma: There is midlung [...] of bilateral glenohumeraljoints. IMPRESSION 1. Stable from 2021 but progressed from 2019 midlung predominantperipheral fibrosis. [...] patients who have questions please contactthe health customer care team coach that requested your imaging first. Braydon Dasilva MD IMG CT ORDERABLES documented in this encounter Visit Diagnoses Diagnosis ILD (interstitial lung disease) Postinflammatory pulmonary fibrosis Chronic bronchitis, unspecified chronic bronchitis type documented in this encounter Care Teams Tuck Pointer Relationship Specialty Start Date End Date Elena Bullock APRN [address] [place] [address] PCP - General Family Medicine 09/20/17 documented as of this encounter
--- OUTSIDE RECORDS SUMMARY | 2024-03-28 08:23 | XMS_ITS | Encounter Summary ---
Author Organization [facility] Address [facility] [place] [address] Care Team Providers Care Horticulture Professor Name Role Phone Elena Bullock APRN Primary Care Provider Encounter Details Date Type Department Care Team (Late st Contact Info) Description 03/02/2023 [place] [phone] Julita Szymanski Social History Tobacco Use Types [...] 06/07/2024 9:00 AM EST [place] [phone] 06/07/2024 11:00 AM EST Office [place] [address] Braydon Lunsford MD [facility] [place] [address] documented as of this encounter Visit Diagnoses Not on filedocumented in this encounter Care Teams Horticulture Professor Relationship Specialty Start Date End Date Elena Bullock APRN [address] [place], [place] [address] PCP - General Family Medicine 09/20/17 documented as of this encounter
--- OUTSIDE RECORDS SUMMARY | 2024-03-28 08:23 | XMS_ITS | Encounter Summary ---
Author Organization [facility] [place] [address] Care Team Providers Care Superintendent Oil Well Services Name Role Phone Elena Bullock APRN Primary Care Provider Encounter Details Date Type Department Care Team (Latest Contact Info) Description 10/07/2022 Travel Social History Tobacco Use Types Packs/Day [...] 06/07/2024 9:00 AM EST [place] [address] 06/07/2024 11:00 AM EST [place] [address] Braydon Lunsford MD [facility] [address] [place] [address] documented as of this encounter Visit Diagnoses Not on filedocumented in this encounter Care Teams Superintendent Oil Well Services Relationship Specialty Start Date End Date Elena Bullock APRN [address] [place] [address] PCP - General Family Medicine 09/20/17 documented as of this encounter
--- OUTSIDE RECORDS SUMMARY | 2024-03-28 08:23 | XMS_ITS | Encounter Summary ---
Author Organization [facility] [place] [address] Care Team Providers Care Tire Shop Manager Name Role Phone Elena Bullock APRN Primary Care Provider [phone] Encounter Details Date Type Department Care Team (Latest Contact Info) Description 04/08/2022 Travel Social History Tobacco Use Types Packs/Day [...] 06/07/2024 9:00 AM EST [place] [address] 06/07/2024 11:00 AM EST [place] [address] Braydon Lunsford MD [facility] [address] [place] [address] documented as of this encounter Visit Diagnoses Not on filedocumented in this encounter Care Teams Tire Shop Manager Relationship Specialty Start Date End Date Elena Bullock APRN [address] [place] [address] PCP - General Family Medicine 09/20/17 documented as of this encounter
--- OUTSIDE RECORDS SUMMARY | 2024-03-28 08:23 | XMS_ITS | Encounter Summary ---
Author Organization [facility] Address [facility] [place] [address] Care Team Providers Care Fourchette Sewer Name Role Phone AmberElena anne APRN Primary Care Provider [phone] Encounter Details Date Type Department Care Team (Late st Contact Info) Description 03/02/2023 [place] [phone] Braydon Lunsford MD [facility] [place] [address] ILD (interstitial lung disease) (Primary Dx) Social History Tobacco Use Types [...] 06/07/2024 9:00 AM EST [place] [phone] 06/07/2024 11:00 AM EST [place] [phone] Braydon Lunsford MD [facility] [place] [address] documented as of this encounter Results * Pulmonary Function Testing (06/30/2023 11:19 AM EST) FVC Actual Pre-BD 2.43 L COMPAS PFT FVC Pre-BD % of Predicted 63 % COMPAS PFT FVC Predicted 3.88 L COMPAS PFT FVC Lower Limits of Normal 2.92 L COMPAS PFT FVC Pre-BD Z-Score -2.51 COMPAS PFT FEV1 Actual Pre-BD 2.14 L COMPAS PFT FEV1 Pre-BD % of Predicted 71 % COMPAS PFT FEV1 Predicted 3.01 L COMPAS PFT FEV1 Lower Limits of Normal 2.22 L COMPAS PFT FEV1 Pre-BD Z-Score -1.82 COMPAS PFT FEV1 / FVC Actual Pre-BD 88 % COMPAS PFT FEV1/FVC Pre-BD Z-Score 1.46 COMPAS PFT TSA99-44 Actual Pre-BD 3.99 % COMPAS PFT UGX13-11 Predicted 2.48 % COMPAS PFT PUL53-89 Pre-BD % of Predicted 161 % COMPAS PFT VAO28-16 Pre-BD Z-Score 1.39 COMPAS PFT DLCO Hb Actual Pre-BD 14.40 mL/min/mmHg COMPAS PFT DLCO Hb Pre-BD % of Predicted 60 % COMPAS PFT DLCO Hb Predicted 23.84 mL/min/mmHg COMPAS PFT DLCO Hb Pre-BD Z-Score -2.69 COMPAS PFT DLCO UNC ACT PRE-BD 14.63 mL/min/mmHg COMPAS PFT DLCO UNC PRE-BD % of PRED 61 % COMPAS PFT DLCO UNC Predicted 23.84 mL/min/mmHg COMPAS PFT DLCO UNC PRE-BD Z-SCORE -2.61 COMPAS PFT Narrative COMPAS PFT - 06/30/2023 11:19 AM EST FINDINGS: FEV1 and FVC are reduced, FEV1/VC is normal. Diffusion capacity not adjusted for hemoglobin is reduced. IMPRESSION: Spirometry suggests restriction. The presence of restriction or air trapping can be tested by measurement of lung volumes. Mild reduction in diffusing capacity (DLCO > 60% and < lower limit of normal). Compared to the last study on 10/07/22, the FVC decreased by 0.31 L, the FEV1 is not significantly changed and the DLCO decreased by 19%. Possible restrictive physiology with a low diffusion capacity can be seen in interstitial lung disease, but is not specific. Procedure Note Timothy Menjivar MD - 06/30/2023 FINDINGS: FEV1 and FVC are reduced, FEV1/VC is normal. Diffusion capacitynot adjusted for hemoglobin is reduced. IMPRESSION: Spirometry suggests restriction. The presence of restrictionor air trapping can be tested by measurement of lung volumes. Mild reduction in diffusingcapacity (DLCO > 60% and < lower limit of normal). Compared to the last study on 10/07/22, the FVCdecreased by 0.31 L, the FEV1 is not significantly changed and the DLCO decreased by 19%. Possiblerestrictive physiology with a low diffusion capacity can be seen in interstitial lungdisease, but is not specific. Braydon Dasilva MD PFT ORDERABLES COMPAS PFT documented in this encounter Visit Diagnoses Diagnosis ILD (interstitial lung disease)- Primary Postinflammatory pulmonary fibrosis ILD (interstitial lung disease) Postinflammatory pulmonary fibrosis documented in this encounter Care Teams Fourchette Sewer Relationship Specialty Start Date End Date Elena Bullock APRN [address] [place] [address] PCP - General Family Medicine 09/20/17 documented as of this encounter
--- OUTSIDE RECORDS SUMMARY | 2024-03-28 08:23 | XMS_ITS | Encounter Summary ---
[place] [address] Care Team Providers Care Helicopter Specialist Name Role Phone AmberElena anne DESIRE Primary Care Provider Encounter Details Date Type Department Care Team (Late st Contact Info) Description 10/28/2022 Telephone [place] [address] Renee Singh Social History Tobacco Use Types Packs/Day Years Used Date Smoking Tobacco: Never Smokeless Tobacco: Never Sex and Gender Information Value Date Recorded Sex Assigned at Not on file Gender Identity Not on file Sexual Orientation Not on file documented as of this encounter Miscellaneous Notes * Telephone Encounter - Renee Singh - 10/28/2022 8:33 AM EDT External call to patients insurance carrier [employer] at [phone]. Stated department &speaking on a recorded line. Spoke with medical representative Szuan (reference # Suzan, 10/28/2022). Inquired about patients on-campus outpatient ST benefits. Updated ST referral # [id number]. documented in this encounter Plan of Treatment Upcoming Encounters Date Type Department Care Team (Late st Contact Info) Description 06/07/2024 9:00 AM EST Appointment [place] [phone] 06/07/2024 11:00 AM EST Office Visit [place] [address] Braydon Lunsford MD [facility] [place] [address] documented as of this encounter Visit Diagnoses Not on filedocumented in this encounter Care Teams Helicopter Specialist Relationship Specialty Start Date End Date Nidia BullockDESIRE anderson [address] [place] [address] PCP - General Family Medicine 09/20/17 documented as of this encounter
--- OUTSIDE RECORDS SUMMARY | 2024-03-28 08:23 | XMS_ITS | Encounter Summary ---
Author Organization [facility] [place] [address] Care Team Providers Care Production Welder Name Role Phone Elena Bullock APRN Primary Care Provider Encounter Details Date Type Department Care Team (Latest Contact Info) Description 11/25/2022 Travel Social History Tobacco Use Types Packs/Day [...] 06/07/2024 9:00 AM [place] [address] 06/07/2024 11:00 AM EST [place] [address] Braydon Lunsford MD [facility] [place] [address] documented as of this encounter Visit Diagnoses Not on filedocumented in this encounter Care Teams Production Welder Relationship Specialty Start Date End Date Elena Bullock APRN [address] [place] [address] PCP - General Family Medicine 09/20/17 documented as of this encounter
--- OUTSIDE RECORDS SUMMARY | 2024-03-28 08:23 | XMS_ITS | Encounter Summary ---
[place] [address] Care Team Providers Care Data Architect Name Role Phone AmberElena anne APRN Primary Care Provider Encounter Details Date Type Department Care Team (Late st Contact Info) Description 04/07/2022 Telephone [place] [address] Izzy Tamez RMA Social History Tobacco Use Types Packs/Day Years Used Date Smoking Tobacco: Never Smokeless Tobacco: Never Sex and Gender Information Value Date Recorded Sex Assigned at Not on file Gender Identity Not on file Sexual Orientation Not on file documented as of this encounter Miscellaneous Notes * Telephone Encounter - Izzy Tamez RMA - 04/07/2022 3:55 PM EST Phone call attempt made to pt unsuccessful. Allergies, meds, & tobacco NOT reviewed. documented in this encounter Plan of Treatment Upcoming Encounters Date Type Department Care Team (Late st Contact Info) Description 06/07/2024 9:00 AM EST Appointment [place] [address] 06/07/2024 11:00 AM EST Office [place] [address] Braydon Lunsford MD [facility] [address] PULMONARY MEDICINE [place], [place] [phone] documented as of this encounter Visit Diagnoses Not on filedocumented in this encounter Care Teams Data Architect Relationship Specialty Start Date End Date Elena Bullock APRN [address] [place] [address] PCP - General Family Medicine 09/20/17 documented as of this encounter
--- OUTSIDE RECORDS SUMMARY | 2024-03-28 08:23 | XMS_ITS | Encounter Summary ---
Author Organization [facility] [place] [address] Care Team Providers Care Supervisor Contingents Name Role Phone Ara Elena PHIPPS Primary Care Provider Encounter Details Date Type Department Care Team (Latest Contact Info) Description 06/30/2023 10:36 AM EST - 06/30/2023 11:59 PM [facility] Hospital [place] [address] ILD (interstitial lung disease) Discharge Disposition: Home Social History Tobacco Use Types Packs/Day Years Used Date Smoking Tobacco: Never Smokeless Tobacco: Never Sex and Gender Information Value Date Recorded Sex Assigned at Not on file Gender Identity Not on file Sexual Orientation Not on file documented as of this encounter Medications at Time of Discharge Medication Sig Dispensed Refills Start Date End Date fluticasone propion-salmeteroL (Advair HFA) 230-21 mcg/actuation HFA Aerosol InhalerIndications:Chron ic bronchitis, unspecified chronic bronchitis type Inhale 2 puffs into the lungs 2 times daily. 2 each 5 06/30/2023 doxycycline (Vibramycin) 100 mg capsuleIndications:Chron ic bronchitis, unspecified chronic bronchitis type Take 1 capsule by mouth 2 times daily. 20 capsule 1 06/30/2023 ascorbic acid, Vitamin C, (Vitamin C) 250 [...] (MULTI FOR HIM ORAL) Take by mouth. documented as of this encounter Plan of Treatment Upcoming Encounters Date Type Department Care Team (Late st Contact Info) Description 06/07/2024 9:00 AM EST [place] [address] 06/07/2024 11:00 AM EST [place] [address] Braydon Lunsford MD [facility] [place] [address] documented as of this encounter Procedures Procedure Name Priority Date/Time Associated Diagnosis Comments COMMON PULMONARY FUNCTION TEST Routine 06/30/2023 11:19 AM EST ILD (interstitial lung disease) documented in this [...] PFT FEV1/FVC Pre-BD Z-Score 1.46 COMPAS PFT NRA34-30 Actual Pre-BD 3.99 % COMPAS PFT UGU97-74 Predicted 2.48 % COMPAS PFT AFF33-87 Pre-BD % of Predicted 161 % COMPAS PFT VWD16-57 Pre-BD Z-Score 1.39 COMPAS PFT DLCO Hb [...] fibrosis documented in this encounter Care Teams Supervisor Contingents Relationship Specialty Start Date End Date Elena Bullock, DESIRE [address] [place] [address] PCP - General Family Medicine 09/20/17 documented as of this encounter
--- OUTSIDE RECORDS SUMMARY | 2024-03-28 08:23 | XMS_ITS | Encounter Summary ---
Author Organization [facility] Address [facility] [place] [address] Care Team Providers Care Domestic Freight Forwarder Name Role Phone AmberElena anne DESIRE Primary Care Provider [phone] Encounter Details Date Type Department Care Team (Late st Contact Info) Description 06/30/2023 12:00 PM EST [place] [address] Braydon Lunsford MD [facility] [place] [address] Chronic bronchitis, unspecified chronic bronchitis type; ILD (interstitial lung disease); Bronchiectasis without complication; Oropharyngeal dysphagia; LUQUE (dyspnea on exertion) Social History Tobacco Use Types Packs/Day Years [...] Mass Index 30.22 06/30/2023 11:50 AM EST documented in this encounter Progress Notes * Braydon Lunsford MD - 06/30/2023 12:00 PM EST Images from the original note were not included. SECTION OF PULMONARY AND CRITICAL CARE Pulmonary [place] [address] Outpatient Follow-up Follow-up 63 y.o. male with a history of cough, which he notices frequently when he eats. He had anunfortunate episode in 2019 following a colonoscopy during which he apparently aspirated and developed an extensive left-sided pneumonitis. He was treated with several courses of steroids, antibiotics, bronchodilators and over the course of the winter 2018 was seen multiple times by Dr. Amanda Gallardo at [facility], who found his pulmonary function studies to be unrevealing (and treated him with multiple courses of steroids). Her last note from that timeframe indicated that he had completely resolved all symptoms of cough, dyspnea, wheezing. 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 He has had no systemic symptoms, nor neil arthritis, though he continues to complain of occasional dysphagia, as well as choking on food. He has an intermittent nonproductive cough, for which he uses Advair twice daily. He has a history of gastroesophageal reflux disease, but he has not had problems with that since elevating the head of his bed. He denies any change in his baseline mild dyspnea. PAST MEDICAL HISTORY: Patient Active Problem List Diagnosis Code Other neutropenia D70.8 Thrombocytopenia D69.6 Anemia, macrocytic D53.9 Hyperlipidemia E78.5 Diverticulosis of large intestine without perforation or abscess with bleeding K57.31 MEDICATIONS: Current Outpatient Medications Medication Sig Dispense Refill ascorbic acid, Vitamin C, (Vitamin C) 250 mg tablet Take 500 mg by mouth daily. codeine-guaiFENesin (guaiFENesin AC) 10-100 mg/5 mL Liquid TAKE 5 TO 10 ML BY MOUTH EVERY 6 HOURS NEEDED FOR COUGH cetirizine (ZYRTEC) 10 mg Tablet Take 10 mg by mouth daily. hydrOXYzine (ATARAX) 25 mg Tablet Take 25 mg by mouth 3 times daily as needed for Itching. Multivits/Iron Fum/FA/D3/Lycop (MULTI FOR HIM ORAL) Take by mouth. fluticasone propion-salmeteroL (Advair HFA) 230-21 mcg/actuation HFA Aerosol Inhaler Inhale 2 puffsinto the lungs 2 times daily. 2 each 5 doxycycline (Vibramycin) 100 mg capsule Take 1 capsule by mouth 2 times daily. 20 capsule 1 loratadine (CLARITIN) 10 mg Tablet Take 10 mg by mouth daily. naproxen sodium (ANAPROX) 550 mg Tablet Take 550 mg by mouth 2 times daily (with meals). No current facility-administered medications for this visit. ALLERGIES: Augmentin [amoxicillin-pot clavulanate] and Pollen extracts PHYSICAL EXAM Last value Range last 24 hrs Temperature Temp: 36.4 ??C (97.5 ??F) Temp: -- Heart Rate Heart Rate: 77 Heart Rate: -- Blood Pressure BP: 115/59 BP: -- Respiratory Rate Resp: 16 Resp: -- SpO2 SpO2: 98 % SpO2: -- WDWN 63 y.o. male in NAD. HEENT-NC/AT; unremarkable Neck-supple without masses or, nodes Chest-few crackles at L base, though these largely cleared with a deep breath Heart-Normal rate and rhythm, without murmers, gallops, or rubs. Abdomen-benign without organomegaly or tenderness Extremities-no cyanosis, clubbing, or edema Skin-no rashes Musculoskeletal-no joint swelling, tenderness, redness or deformities [...] my interpretation is as follows: FVC of 2.43L (63% pred), FEV1 of 2.14L (71% pred), FEV1/FVC 88%. Diffusing capacity of 61% pred. Resting room air oxygen saturation of 99%. Mild restriction with reduced diffusing capacity. IMPRESSION: In summary, this is a 63 y.o. male with generally nonproductive cough with mild dyspneaon exertion, without wheezing. Review of the films from 2019 shows a rather extensive left-sided aspiration pneumonitis, but follow-up CT scan from weeks after that event showed resolving injury on the left with evidence of a milder degree of similar abnormalities on the right, As well as mild bilateral bronchiectasis. Though his abnormalities seem more symmetric on his most recent scan, they arenot significantly worse than noted on the prior scan. He underwent a swallowing evaluation which was found to be unrevealing, both modified barium swallow and upper GI study. His PFTs have been largely stable. Follow-up in 6 months with PFTs. Total visit time: 30 minutes documented in this encounter Plan of Treatment Upcoming Encounters Date Type Department Care Team (Late st Contact Info) Description 06/07/2024 9:00 AM [place] [address] 06/07/2024 11:00 AM EST [place] [address] Braydon Lunsford MD [facility] [address] PULMONARY MEDICINE [place] [id number] Scheduled Orders Name Type Priority Associated Diagnoses Orde r Schedule Pulmonary Function Testing PFT Routine Chronic bronchitis, unspecified chronic bronchitis type ILD (interstitial lung disease) Expected: 12/29/2023 (Approximate), Expires: 06/30/2024 documented as of this encounter Visit Diagnoses Diagnosis Chronic bronchitis, unspecified chronic bronchitis type ILD (interstitial lung disease) Postinflammatory pulmonary fibrosis Bronchiectasis without complication Bronchiectasis without acute exacerbation Oropharyngeal dysphagia Dysphagia, oropharyngeal phase LUQUE (dyspnea on exertion) Other dyspnea and respiratory abnormality documented in this encounter Care Teams Domestic Freight Forwarder Relationship Specialty Start Date End Date Elena Bullock APRN [address] [place] [address] [address] [place] [address] PCP - General Family Medicine 09/20/17 documented as of this encounter
--- OUTSIDE RECORDS SUMMARY | 2024-03-28 08:24 | XMS_ITS | Encounter Summary ---
Author Organization [facility] Address [address] [place] [address] Care Team Providers Care Practice Specialist Name Role Phone Unavailable Primary Care Provider Unavailabl e Encounter Details Date Type Department Care Team (Late st Contact Info) Description 05/27/2021 Lab Requisition [facility] Pathology & Laboratory Medicine - [facility] [address] [place] [address] Outr Resulting Lab, Provider Social History Tobacco Use Types Packs/Day Years Used Date Smoking Tobacco: Never Assessed Sex and Gender Information Value Date Recorded Sex Assigned at Not on file Gender Identity Not on file Sexual Orientation Not on file documented as of this encounter Plan of Treatment Not on file documented as of this encounter Procedures Procedure Name Priority Date/Time Associated Diagnosis Comments ZZCOVID-19 TEST [facility] PCR Today 05/27/2021 9:47 EST COVID-19 TESTING Routine 05/27/2021 9:47 EST documented in this encounter Results * COVID-19 TEST [facility] PCR (05/27/2021 9:47 EST) Swab 05/27/2021 9:47 EST 05/27/2021 21:48 EST Provider Outr Resulting Lab MICROBIOLOGY - GENERAL ORDERABLES [facility] [address] [place] [address] * COVID-19 TESTING (05/27/2021 9:47 EST) COVID-19 rt-PCR Result Negative Negative 05/28/2021 15:47 EST [facility] Comment: This test has not been FDA cleared or approved. This test has been authorized by FDA under an EUA for use by authorized laboratories. This test has been authorized only for detection of nucleic acid from 2019-nCoV, not for any other viruses or pathogens. This test is only authorized for the duration of the declaration that circumstances exist justifying the authorization of emergency use of in vitro diagnostic tests for detection and/or diagnosis of 2019-nCoV under section 564(b)(1) of Act, 21 U.S.C ?? 360bbb-3(b) (1), unless the authorization is terminated or revoked sooner. Negative results do not preclude 2019-nCoV infection and should not be used as the sole basis for treatment or other patient management decisions. Negative results must be combined with clinical observations, patient history, and epidemiological information. Performed on the [employer] Fusion instrument Performing Lab [facility] 05/28/2021 15:47 EST [facility] Swab 05/27/2021 9:47 EST 05/27/2021 21:48 EST Provider Outr Resulting Lab MICROBIOLOGY - GENERAL ORDERABLES [facility] [address] [place] [address] documented in this encounter Visit Diagnoses Not on filedocumented in this encounter
--- OUTSIDE RECORDS SUMMARY | 2024-03-28 08:24 | XMS_ITS | Encounter Summary ---
Author Organization [facility] Address [facility] [place] [address] Care Team Providers Care Spark Plug Assembler Name Role Phone AmberElena anne APRN Primary Care Provider Encounter Details Date Type Department Care Team (Latest Contact Info) Description 09/20/2017 9:51 AM EDT - 09/20/2017 11:59 PM EDT Hospital Encounter Hematology [place] [address] Anemia, unspecified type Discharge Disposition: Home Social History Tobacco Use Types Packs/Day Years Used Date Smoking Tobacco: Never Smokeless Tobacco: Never Sex and Gender Information Value Date Recorded Sex Assigned at Not on file Gender Identity Not on file Sexual Orientation Not on file documented as of this encounter Medications at Time of Discharge Medication Sig Dispensed Refills Start Date End Date hydrOXYzine (ATARAX) 25 mg Tablet Take 25 [...] 06/07/2024 9:00 AM EST Appointment [place] [address] 06/07/2024 11:00 AM EST Office [place] [address] Braydon Lunsford MD [facility] PULMONARY MEDICINE [place] [address] documented as of this encounter Procedures Procedure Name Priority Date/Time Associated Diagnosis Comments IMMUNOGLOBULIN FREE LIGHT CHAINS, SERUM Routine 09/20/2017 10:03 AM EDT Anemia, unspecified type IMMUNOGLOBULINS, QUANTITATIVE Routine 09/20/2017 10:03 AM EDT Anemia, unspecified type HEMOGRAM Routine 09/20/2017 10:03 AM EDT Anemia, unspecified type DIFFERENTIAL, AUTOMATED Routine 09/20/2017 10:03 AM EDT Anemia, unspecified type COPPER, SERUM Routine 09/20/2017 10:03 AM EDT Anemia, unspecified type RETICULOCYTE COUNT Routine 09/20/2017 10 :03 AM EDT Anemia, unspecified type CBC (WITH DIFF) Routine 09/20/2017 10:03 AM EDT Anemia, unspecified type PROTEIN ELECTROPHORESIS, SERUM Routine 09/20/2017 10:03 AM EDT Anemia, unspecified type LACTATE DEHYDROGENASE Routine 09/20/2017 10:03 AM EDT Anemia, unspecified type FERRITIN Routine 09/20/2017 10:03 AM EDT COMPREHENSIVE METABOLIC PANEL Routine 09/20/2017 10:03 AM EDT Anemia, unspecified type documented in this encounter Results * (ABNORMAL) Ferritin (09/20/2017 10:03 AM EDT) [facility] Signature Ferritin 479(H) 30 - 400 ng/mL [facility] Comment: Pediatric reference ranges not verified at [facility], interpret with caution. Reference ranges for females greater than 50 years of age approach values for men, i.e., 30-400 ng/mL. Blood specimen (specimen) Venous Draw / Unknown 09/20/2017 10:03 AM EDT 09/20/2017 11:34 AM EDT Narrative Resulting Agency Comment Spec In Lab Jose Quinones MD CHEMISTRY ORDERA BLES Performing Organization Address City/[facility]/ZIP Co de Phone Number [facility] [place] [address] * Differential, Automated (09/20/2017 10:03 AM EDT) Neutrophil % 60.1 % [facility] Neutrophil Absolute 2.85 1.70 - 6.10 x10(3)/[facility] LABORATORY Lymph % 22.2 % [facility] Lymphocytes Abs 1.0 0.9 - 3.2 x10(3)/[facility]OR[facility] Monocyte % 11.8 % [facility] Monocyte Abs 0.6 0.3 - 0.9 x10(3)/[facility] Eos % 5.3 % [facility] Eosinophils Abs 0.2 0.0 - 0.4 x10(3)/[facility] Basophil % 0.4 % [facility] Baso Absolute 0.0 0.0 - 0.1 x10(3)/[facility] Immature Gran % 0.20 % [facility] Comment: Immature granulocytes(IG's)percentage and absolute count will include metamyelocytes, myelocytes, and promyelocytes. Blood smears from CBCs yielding IG's will be scanned manually for concordance. If this scan disagrees with the automated IG or if promyelocytes are noted, a manual differential will be performed. Immature Gran Absolute 0.01 0.00 - 0.04 x10(3)/[facility]ORATORY Blood specimen (specimen) 09/20/2017 10:03 AM EDT 09/20/2017 10:23 AM EDT Narrative Resulting Agency Comment Spec In Lab Jose Quinones MD HEMATOLOGY ORDER SUKHI [facility] [place] [address] * (ABNORMAL) Hemogram (09/20/2017 10:03 AM EDT) [facility] White Blood Cell 4.7 4.0 - 9.5 x10(3)/[facility] LABORATORY Red Blood Cell 3.83(L) 4.58 - 5.54 x10(6)/[facility]ORY Hemoglobin 13.2(L) 13.7 - 16.5 gm/dL [facility] Hematocrit 38.0(L) 40.5 - 48.5 % [facility] Mean Cell Volume 99.2(H) 82.9 - 93.1 [facility] LABORATORY Mean Cell Hemoglobin 34.5(H) 27.5 - 32.1 pg [facility] Mean Cell Hemoglobin Concentration 34.7 32.0 - 35.7 gm/dL [facility] Platelet 159 145 - 357 x10(3)/[facility]ORATORY RDW Standard Deviation 51.7(H) 36.0 - 45.0 [facility] LABORATORY RDW coefficient of variation 14.1(H) 11.4 - 13.8 % [facility] Mean Platelet Volume 10.5 7.6 - 12.9 [facility] LABORATORY NRBC% auto 0.0 % [facility] NRBC Absolute 0.000 0.000 - 0.000 x10(3)/[facility] Blood specimen (specimen) 09/20/2017 10:03 AM EDT 09/20/2017 10:23 AM EDT Narrative Resulting Agency Comment Spec In Lab Jose Quinones MD HEMATOLOGY ORDER SUKHI [facility] [place] [address] * Lactate Dehydrogenase (09/20/2017 10:03 AM EDT) Lactate Dehydrogenase 173 110 - 220 unit/L [facility] Blood specimen (specimen) 09/20/2017 10:03 AM EDT 09/20/2017 10:23 AM EDT Narrative Resulting Agency Comment Spec In Lab Jose Quinones MD CHEMISTRY ORDERA BLES Performing Organization Address City/[facility] Co de Phone Number [facility] [place] [address] * (ABNORMAL) Immunoglobulins, Quantitative (09/20/2017 10:03 AM EDT) Immunoglobulin G 1,144 700 - 1,600 mg/dL [facility] IgA 518(H) 70 - 400 mg/dL [facility] IgM 93 40 - 230 mg/dL [facility] Blood specimen (specimen) 09/20/2017 10:03 AM EDT 09/20/2017 10:23 AM EDT Narrative Resulting Agency Comment Spec In Lab Jose Quinones MD CHEMISTRY ORDERA BLES Performing Organization Address [facility] Co de Phone Number [facility] [place] [address] * Free Light Chains, Serum (09/20/2017 10:03 AM EDT) Quimby Free Light Chains 1.71 0.81 - 2.98 mg/dL [facility] Comment: Please be advised that following a multi-institution study the reference interval for Serum Free Light Chains was updated June 09, 2017. Lambda Free Light Chains 1.66 0.86 - 1.99 mg/dL [facility] Comment: Please be advised that following a multi-institution study the reference interval for Serum Free Light Chains was updated June 09, 2017. [place]by/Lambda Free Light Chain Ratio 1.0301 0.5000 - 2.4300 [facility] Comment: Please be advised that following a multi-institution study the reference interval for Serum Free Light Chains was updated June 09, 2017. Blood specimen (specimen) 09/20/2017 10:03 AM EDT 09/20/2017 10:23 AM EDT Narrative Resulting Agency Comment Spec In Lab Jose Quinones MD CHEMISTRY ORDERA BLES Performing Organization Address [facility] Co de Phone Number [facility] [place] [address] * Protein Electrophoresis, serum (09/20/2017 10:03 AM EDT) Total Prot Electrophoresis 7.4 6.1 - 8.0 gm/dL [facility] Albumin Electrophoresis 4.58 3.60 - 6.00 gm/dL [facility] Alpha 1 Globulin 0.15 0.10 - 0.30 gm/dL [facility] Alpha 2 Globulin 0.77 0.40 - 0.90 gm/dL [facility] Beta Globulin 0.84 0.50 - 1.00 gm/dL [facility] Gamma Globulin 1.06 0.50 - 1.30 gm/dL [facility] M1 Band None Detected [facility] Blood specimen (specimen) 09/20/2017 10:03 AM EDT 09/20/2017 10:23 AM EDT Narrative Resulting Agency Comment Spec In Lab Jose Quinones MD CHEMISTRY ORDERA BLES Performing Organization Address [facility] Co de Phone Number [facility] [place] [address] * Copper, serum (09/20/2017 10:03 AM EDT) Copper (SEPTEMBER) 1.05 0.75 - 1.45 mcg/mL [facility] Comment: ADDITIONAL INFORMATION This test was developed and its performance characteristics determined by [facility] in a manner consistent with CLIA requirements. This test has not been cleared or approved by the U.S. Food and Drug Administration. Test Performed by: [facility] [address] [place] [address] Blood specimen (specimen) 09/20/2017 10:03 AM EDT 09/20/2017 11:07 AM EDT Narrative Resulting Agency Comment Spec In Lab Jose Quinones MD LAB SEND OUT ORD ERABLES [facility] [place] [address] * (ABNORMAL) Comprehensive metabolic panel (non-fasting) (09/20/2017 10:03 AM EDT) Glucose 102 65 - 199 mg/dL [facility] Comment:Diabetes: >=200 mg/d L plus symptoms Blood Urea Nitrogen 13 10 - 20 mg/dL [facility] Creatinine 0.79(L) 0.80 - 1.50 mg/dL [facility] Sodium 140 135 - 145 mmol/L [facility] Potassium 4.2 3.5 - 5.0 mmol/L [facility] Comment: Please note: ??Patients with WBC >100,000 may have falsely elevated Potassium levels. ??For accurate Potassium quantification in these patients send serum separator tube (gold top) for subsequent determinations. ??Contact the Clinical Chemistry Laboratory if there are any questions. Chloride 103 98 - 107 mmol/L [facility] Carbon Dioxide 25 22 - 31 mmol/L [facility] Anion Gap 12 5 - 15 mmol/L [facility] Calcium 9.6 8.5 - 10.5 mg/dL [facility] Protein, Total 7.6 6.1 - 8.0 gm/dL [facility] Albumin 4.3 3.2 - 5.2 gm/dL [facility] Aspartate Aminotransferase 24 0 - 39 unit/L [facility] Alanine Aminotransferase 30 0 - 55 unit/L [facility] Alkaline Phosphatase 67 40 - 120 unit/L [facility] Bilirubin, Total 0.6 0.2 - 1.3 mg/dL [facility] Est Glomerular Filtration Rate >60 >=60 [facility] Comment: The reported eGFR should be multiplied by 1.2 for patients. The MDRD is not an appropriate measure of renal function for patients with body mass extremes or in patients with acute kidney failure. http://[employer]/DHnkdep http://[employer]/DHMCnkf Blood specimen (specimen) 09/20/2017 10:03 AM EDT 09/20/2017 10:23 AM EDT Narrative Resulting Agency Comment Spec In Lab Jose Quinones MD CHEMISTRY ORDERA BLES Performing Organization Address [facility] Co de Phone Number [facility] [place] [address] * Reticulocyte Count (09/20/2017 10:03 AM EDT) Reticulocyte % 1.7 0.7 - 2.6 % [facility] Retic Abs # 0.060 0.030 - 0.120 x10(6)/mcL [facility] Immature Retic% 12.1 0.0 - 15.6 % [facility] Reticulated Hgb 37.5 31.3 - 40.2 pg [facility] Blood specimen (specimen) 09/20/2017 10:03 AM EDT 09/20/2017 10:23 AM EDT Narrative Resulting Agency Comment Spec In Lab Jose Quinones MD HEMATOLOGY ORDER SUKHI Performing Organization Address [facility]/ZIP Co de Phone Number [facility] [place] [address] documented in this encounter Visit Diagnoses Diagnosis Anemia, unspecified type documented in this encounter Care Teams Spark Plug Assembler Relationship Specialty Start Date End Date Elena Bullock APRN [address] [place] [address] [address] [place] [address] PCP - General Family Medicine 09/20/17 documented as of this encounter
--- OUTSIDE RECORDS SUMMARY | 2024-03-28 08:24 | XMS_ITS | Encounter Summary ---
Author Organization [facility] Address [facility] [place] [address] Care Team Providers Care Warp Knit Operator Name Role Phone AmberElena anne APRN Primary Care Provider [phone] Encounter Details Date Type Department Care Team (Late st Contact Info) Description 09/29/2021 Orders [place] [id number] Braydon Lunsford MD [facility] [place] [address] Cough due to PACO inhibitor Social History Tobacco Use Types Packs/Day Years [...] 06/07/2024 9:00 AM EST [place] [address] 06/07/2024 11:00 AM EST [place] [phone] Braydon Lunsford MD [facility] [place] [address] documented as of this encounter Results * [...] / FVC LLN 65 % COMPAS PFT [id number] Actual Pre-BD 3.12 L/s COMPAS PFT [id number] Pre-BD % of Predicted 120 % COMPAS PFT [id number] Predicted 2.59 L/s COMPAS PFT [id number] Pre-BD Z-Score 0.52 COMPAS PFT Narrative COMPAS PFT - 09/30/2021 9:39 AM EDT FINDINGS: FEV1, FVC, and FEV1/VC are within normal limits. IMPRESSION: Normal spirometry. Procedure Note Timothy Holguin MD - 09/30/2021 FINDINGS: FEV1, FVC, and FEV1/VC are within normal limits. IMPRESSION:Normal spirometry. Braydon Dasilva MD PFT ORDERABLES COMPAS PFT documented in this encounter Visit Diagnoses Diagnosis Cough due to PACO inhibitor Cough Cough due to PACO inhibitor Cough documented in this encounter Care Teams Warp Knit Operator Relationship Specialty Start Date End Date Elena Bullock, REGIONAL SALES DIRECTOR [address] [place] [address] PCP - General Family Medicine 09/20/17 documented as of this encounter
--- OUTSIDE RECORDS SUMMARY | 2024-03-28 08:24 | XMS_ITS | Encounter Summary ---
Author Organization [facility] Address [facility] [place] [address] Care Team Providers Care Decorative Greens Cutter Name Role Phone Elena Bullock APRN Primary Care Provider Encounter Details Date Type Department Care Team (Late st Contact Info) Description 09/22/2021 [place] [address] Jaclyn Turk Social History Tobacco Use Types Packs/Day Years [...] 06/07/2024 9:00 AM EST [place] [address] 06/07/2024 11:00 AM EST [place] [address] Braydon Lunsford MD [facility] [place] [address] documented as of this encounter Visit Diagnoses Not on filedocumented in this encounter Care Teams Decorative Greens Cutter Relationship Specialty Start Date End Date Elena Bullock APRN [address] [place], [place] [address] PCP - General Family Medicine 09/20/17 documented as of this encounter
--- OUTSIDE RECORDS SUMMARY | 2024-03-28 08:24 | XMS_ITS | Encounter Summary ---
Author Organization [facility] Address [facility] [place] [address] Care Team Providers Care Tailings Worker Name Role Phone Elena Bullock APRN Primary Care Provider [phone] Reason for Visit * Reason Comments Schedule Office Case * Consultation (Routine) - Closed Specialty Diagnoses / Procedures Referred By Contac t Referred To Contact Hematology and Oncology Diagnoses Pancytopenia Pancytopenia Procedures Evaluate and Treat Elena Bullock APRN [address] [place] [address] [facility] [address] [place] [address] Referral ID Status Reason Start Date Expiration Date V isits Requested Visits Authorized [id number] Closed Consult, Test & Treat Connection Center PCP Updated and/or Approved 09/12/2017 09/12/2018 1 1 Encounter Details Date Type Department Care Team (Late st Contact Info) Description 09/20/2017 9:00 AM EDT Office Visit Hematology [place] [phone] Jose Quinones MD [facility] [address] HEMATOLOGY [place] [address] Anemia, unspecified type Social History Tobacco Use Types Packs/Day Years Used Date Smoking Tobacco: Never Smokeless Tobacco: Never Sex and Gender Information Value Date Recorded Sex Assigned at Not on file Gender Identity Not on file Sexual Orientation Not on file documented as of this encounter Last Filed Vital Signs Vital Sign Reading Time Taken Comments Blood Pressure 127/59 09/20/2017 8:49 AM EDT Pulse 72 09/20/2017 8:49 AM EDT Temperature 37 ??C (98.6 ??F) 09/20/2017 8:49 AM EDT Respiratory Rate 18 09/20/2017 8:49 AM EDT Oxygen Saturation 100% 09/20/2017 8:49 AM EDT Inhaled Oxygen Concentration - - Weight 85.6 kg (188 lb 12.8 oz) 09/20/2017 8:49 AM EDT Height 169 cm (5' 6.54) 09/20/2017 8:49 AM EDT Body Mass Index 29.99 09/20/2017 8:49 AM EDT documented in this encounter Progress Notes * Jose Conway MD - 09/20/2017 9:00 AM EDT Images from the original note were not included. HEMATOLOGY CONSULTATION VISIT NOTE REASON FOR VISIT: Zachery Whittaker is a 57 y.o. male referred by Elena Bullock APRN for evaluation of pancytopenia. The history is obtained from the patient, and I also have reviewed all the available medical records provided by the referring physician and located in the electronic medical records. HISTORY OF PRESENT ILLNESS Zachery Whittaker is a 57 y.o. male presenting for evaluation of pancytopenia. ?? Presentation: ?? He was noted to have little spot on the eye in early (Pt does not remember what it was)for which he was prescribed Augmentin and the, developed jaundice. LFTs on 07/19/17 revealed T.Bili of 9.78 (mostly direct), AST: 146, ALT: 291, Alk.phos: 367. CBC at that time was unremarkable exceptfor mild macrocytic anemia with Hgb of 12.2, MCV: 101.8. His elevated LFTs were felt be from Augmentin. ?? In early July,, he had pneumonia and was prescribed azithromycin. ?? F/up labs on 08/23 revealed normal LFTs. But, CBC revealed new onset leukopenia with WBC of 2.34,ANC of ~800, thrombocytopenia with Plt count of 106k, mild macrocytic anemia with Hgb of 13.4, MCV of 100.8. ?? 1st week of August: Found to have a dental abscess and was prescribed clindamycin 150mg tablet qid x 2 weeks on 08/30 followed by extraction of that tooth. ?? F/up labs on 09/06/17 revealed normalization of WBC and platelet count with persistent anemia with Hgb of 12.5, MCV of 100.6. W/up revealed b12 >1000, folic acid normal at 14.3 In office today, Zachery reports feeling well overall. - Reports loose watery BMs 3-4 times a day for the past couple of weeks since stopping clindamycin;No fevers, no nausea; mild abd discomfort for the past couple of weeks. 2/10 in severity; - Intermittent low back pain : chronic ; - No fevers, no night sweats; No unexplained weight loss; - No active cardiac/resp/GI issues; Rest of the ROS is negative; REVIEW OF SYSTEMS Constitutional --Energy level: good --Pain: as above; --Fevers/chills/sweats: No --Unexpected weight loss or gain: No Eyes - No change in vision Ears, nose, throat - No change hearing, no oral or throat pain or thrush Cardiovascular --SOB: No --LUQUE: No --chest pain: No Respiratory --Cough: No --SOB, LUQUE: No Gastrointestinal --Appetite: good --Nausea/vomiting/diarrhea/constipation: as above - Abd pain: as above Genitourinary --Dysuria or hematuria: No Musculoskeletal --Muscle pain or weakness: No --Joint pain or swelling: pain in feet from OA; Immune System --Recent infections: No Hematology/Lymph --Bruising/bleeding/melena: No --Enlarged nodes or other masses: No Skin --Rashes or petechiae: No Neuro - No Other ROS: All negative PROBLEM LIST There is no problem list on file for this patient. MEDICATIONS ??? Multivits/Iron Fum/FA/D3/Lycop (MULTI FOR HIM ORAL) ??? hydrOXYzine (ATARAX) 25 mg Tablet ??? benzonatate (TESSALON) 100 mg Capsule ??? fluticasone (FLONASE) 50 mcg/actuation [place], Suspension ??? naproxen sodium (ANAPROX) 550 mg Tablet ALLERGIES/ADR Allergies Allergen Reactions ??? Augmentin [Amoxicillin-Pot Clavulanate] Other (See Comments) Turned skin yellow ??? Pollen Extracts PERSONAL and SOCIAL HISTORY [facility]: [facility] with his GFJulia: [phone]. 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 OK to leave message on machine. ?? FAMILY HISTORY No biological children; - 1 brother and 2 sisters: all are healthy; - Mother : alive and healthy at 86. - No cancers or blood disorders in the family; PHYSICAL EXAM VITAL SIGNS: Blood pressure 127/59, pulse 72, temperature 37 ??C (98.6 ??F), temperature source Oral, resp. rate 18, height 169 cm (5' 6.53), weight 85.6 kg (188 lb 12.8 oz), SpO2 100 %. GENERAL: Zachery Whittaker is a well-appearing 57 y.o. male in no acute distress. HEENT: Eyes: b/l PERRL, no conjunctival pallor , no scleral icterus; Sinuses: non-tender; Oropharynx : moist , clear, No lesions, No thrush. ENDOCRINE: No thyromegaly palpated. CARDIOVASCULAR: Heart with regular rate and rhythm without S3,S4 or murmurs. No cyanosis or peripheral edema. PULMONARY: Lungs are clear to auscultation without rales, rhonchi or wheezing. GASTROINTESTINAL: Abdomen soft and non-tender without palpable masses or hepatosplenomegaly. MUSCULOSKELETAL: Neck supple with full ROM. No spine or CVA tenderness. SKIN: No rashes, bruises or petechiae. LYMPH: No abnormal lymphadenopathy. NEUROLOGICAL: Alert and oriented to person, place and time; No focal neurological deficits; PSYCHIATRIC: normal affect and mood LABORATORY No results found for this or any previous visit (from the past 72 hour(s)). RADIOLOGY - None ASSESSMENT & PLANS Zachery Whittaker is a 57 y.o. healthy male presenting for evaluation of pancytopenia. His labs in late July when he had a dental abscess revealed pancytopenia. F/up labs 2-3 weeks ago revealed normalization of his WBC and platelet count, though anemia was persistent. I explained to him that his transient leukopenia and thrombocytopenia are most likely 2ry to active infection (dental abscess) at that time and they have resolved after he was treated with antibiotics and extraction of that tooth. His CBC is remarkable for mild macrocytic anemia with Hgb ~ 12.5-13.5g/dL since at least Jun, 2017. I discussed the differential for macrocytic anemia: Rest of the 2 blood cell lines (WBC and platelets) are normal. I reviewed the differential for anemia with him: nutritional deficiencies (B12, folate, iron), hemolysis, blood loss, anemia of CKD due to relative Epo deficiency, AOCD, primary bone marrow disorders such as myelodysplastic syndrome, multiple myeloma etc.. Accordingly, we will do thew/up in a step katz fashion to evaluate for anemia. His B12 and folate are normal recently; # Diarrhea: He was on 3 different antibiotics (augmentin, azithromycin, clindamycin) in the past 8 weeks. My suspicion for C.diff is low at this time as he does not look sick, no fever etc. I advisedhim to try probiotics for a week, try lactose free diet for few days and see if that helps. I advised him to f/up with his PCP if the diarrhea does not improve or if he starts to have fever etc.he agreed with the recommendations. IN SUMMARY: - Transient leukopenia and thrombocytopenia : resolved: most likely 2ry to infection - Persistent macrocytic anemia: will do the w/up. - Labs today: CBC, CMP, LDH, copper, retic count, SPEP, SFLCs, quant Igs. - I will call him with the results for further plans. I reviewed my impression and recommendations with Zachery Whittaker and answered all the questionsto his satisfaction. He understands the plan, and knows that he can contact us at any time should any new symptoms, concerns or questions arise. Thank you for giving me the opportunity to participate in this patient's care. Please don't hesitate to contact me if you'd like to discuss this patient's situation further. Jose Conway MD Pager: [phone] Staff physician, 09/20/2017 CC: Elena Bullock APRN ADDENDUM: Recent Labs 09/20/17 1003 WBC 4.7 RBC 3.83* HGB 13.2* HCT 38.0* MCV 99.2* MCH 34.5* MCHC 34.7 PLATELET 159 RDWCV 14.1* I called and reviewed all his labs with his significant other, Julia per his request. CBC came back normal except for mild macrocytic anemia. So, I explained to her that, his transient leukopenia and thrombocytopenia are most likely 2ry to infection (dental abscess) at that time. W/up is negative so far (no nutritional deficiencies, monoclonal gammopathies) for his mild anemia. I recommend f/up in 2-3 months with rpt CBC for his anemia. If his anemia is worsening, then we will consider bone marrow biopsy for further investigation. She said, his diarrhea has improved to 2 soft BMs a day from 3-4 loose watery BMs a day since starting on probiotics. No fever; I recommend continuing probiotics for total of 1-2 weeks duration untilhis BMs return to his normal. No difference with lactose free diet. So, I advised that he can go back to his regular diet. I advised that he should f/up with his PCP if his diarrhea does not resolve.She agreed with the plan and I answered all her Qs to her satisfaction. Jose Conway MD Hematology Staff physician, Pager: [phone] 09/25/17 documented in this encounter Plan of Treatment Upcoming Encounters Date Type Department Care Team (Late st Contact Info) Description 06/07/2024 9:00 AM EST Appointment [place] [phone] 06/07/2024 11:00 AM EST [place] [phone] Braydon Lunsford MD [facility] [place] [address] documented as of this encounter Results * TSH (12/20/2017 8:52 AM EDT) Thyroid Stimulating Hormone 2.05 0.27 - 4.20 mlU/ML [facility] Blood specimen (specimen) 12/20/2017 8:52 AM EDT 12/20/2017 9:08 AM EDT Narrative Resulting Agency Comment Spec In Lab Jose Quinones MD CHEMISTRY ORDERA BLES Performing Organization Address [facility] Co de Phone Number [facility] [place] [address] * CRP, acute inflammation (12/20/2017 8:52 AM EDT) C-Reactive Protein 3.9 <=4.9 mg/L [facility] Blood specimen (specimen) 12/20/2017 8:52 AM EDT 12/20/2017 9:08 AM EDT Narrative Resulting Agency Comment Spec In Lab Jose Quinones MD CHEMISTRY ORDERA BLES Performing Organization Address [facility] Co de Phone Number [facility] [place] [address] * (ABNORMAL) Sedimentation rate (12/20/2017 8:52 AM EDT) Sedimentation Rate Automated 32(H) 0 - 15 mm/hr [facility] Blood specimen (specimen) 12/20/2017 8:52 AM EDT 12/20/2017 9:08 AM EDT Narrative Resulting Agency Comment Spec In Lab Jose Quinones MD HEMATOLOGY ORDER SUKHI Performing Organization Address [facility] Co de Phone Number [facility] [place] [address] * Comprehensive metabolic panel (non-fasting) (12/20/2017 8:52 AM EDT) Glucose 102 65 - 199 mg/dL [facility] Comment:Diabetes: >=200 mg/d L plus symptoms Blood Urea Nitrogen 13 10 - 20 mg/dL [facility] Creatinine 0.83 0.80 - 1.50 mg/dL [facility] Sodium 138 135 - 145 mmol/L [facility] Potassium 3.9 3.5 - 5.0 mmol/L [facility] Comment: Please note: ??Patients with WBC >100,000 may have falsely elevated Potassium levels. ??For accurate Potassium quantification in these patients send serum separator tube (gold top) for subsequent determinations. ??Contact the Clinical Chemistry Laboratory if there are any questions. Chloride 99 98 - 107 mmol/L [facility] Carbon Dioxide 25 22 - 31 mmol/L [facility] Anion Gap 14 5 - 15 mmol/L [facility] Calcium 9.5 8.5 - 10.5 mg/dL [facility] Protein, Total 7.4 6.1 - 8.0 gm/dL [facility] Albumin 4.2 3.2 - 5.2 gm/dL [facility] Aspartate Aminotransferase 21 0 - 39 unit/L [facility] Alanine Aminotransferase 23 0 - 55 unit/L [facility] Alkaline Phosphatase 59 40 - 120 unit/L [facility] Bilirubin, Total 0.5 0.2 - 1.3 mg/dL [facility] Est Glomerular Filtration Rate 97 >=60 mL/min/1. 73 m?? [facility] Comment: The eGFR was calculated using the CKD-EPI equation. As with all creatinine based estimates of kidney function, eGFR values calculated with the CKD-EPI equation are not accurate in patients with acute kidney failure, extremes of body mass or the acutely ill. http://[email or web address]/[employer] Technologiesnkdep [email or web address]ELnkf eGFR 112 >=60 mL/min/1. 73 m?? [facility] Comment: The eGFR was calculated using the CKD-EPI equation. As with all creatinine based estimates of kidney function, eGFR values calculated with the CKD-EPI equation are not accurate in patients with acute kidney failure, extremes of body mass or the acutely ill. http://[email or web address]/[employer] Technologiesnkdep [email or web address]ABELnkf Blood specimen (specimen) 12/20/2017 8:52 AM EDT 12/20/2017 9:08 AM EDT Narrative Resulting Agency Comment Spec In Lab Jose Quinones MD CHEMISTRY ORDERA BLES Performing Organization Address [facility] Co de Phone Number [facility] [place] [address] * (ABNORMAL) Immunoglobulins, Quantitative (12/20/2017 8:52 AM EDT) Pathologist [facility] Immunoglobulin G 1,067 700 - 1,600 mg/dL [facility] IgA 499(H) 70 - 400 mg/dL [facility] IgM 81 40 - 230 mg/dL [facility] Blood specimen (specimen) 12/20/2017 8:52 AM EDT 12/20/2017 9:07 AM EDT Narrative Resulting Agency Comment Spec In Lab Jose Quinones MD CHEMISTRY ORDERA BLES Performing Organization Address [facility] Co de Phone Number [facility] [place] [address] * (ABNORMAL) Reticulocyte Count (12/20/2017 8:52 AM EDT) Pathologist [facility] Reticulocyte % 1.7 0.7 - 2.6 % [facility] Retic Abs # 0.070 0.030 - 0.120 x10(6)/mcL [facility] Immature Retic% 13.5 0.0 - 15.6 % [facility] Reticulated Hgb 41.6(H) 31.3 - 40.2 pg [facility] Blood specimen (specimen) 12/20/2017 8:52 AM EDT 12/20/2017 9:08 AM EDT Narrative Resulting Agency Comment Spec In Lab Jose Quinones MD HEMATOLOGY ORDER SUKHI Performing Organization Address [facility] Co de Phone Number [facility] [place] [address] * Ferritin (12/20/2017 8:52 AM EDT) Ferritin 361 30 - 400 ng/mL [facility] Comment: Pediatric reference ranges not verified at [facility], interpret with caution. Reference ranges for females greater than 50 years of age approach values for men, i.e., 30-400 ng/mL. Blood specimen (specimen) 12/20/2017 8:52 AM EDT 12/20/2017 9:07 AM EDT Narrative Resulting Agency Comment Spec In Lab Jose Quinones MD CHEMISTRY ORDERA BLES Performing Organization Address City/[facility]/ZIP Co de Phone Number [facility] [place] [address] * Lactate Dehydrogenase (09/20/2017 10:03 AM EDT) [facility] Lactate Dehydrogenase 173 110 - 220 unit/L [facility] Blood specimen (specimen) 09/20/2017 10:03 AM EDT 09/20/2017 10:23 AM EDT Narrative Resulting Agency Comment Spec In Lab Jose Quinones MD CHEMISTRY ORDERA BLES Performing Organization Address [facility]/ZIP Co de Phone Number [facility] [place] [address] * (ABNORMAL) Immunoglobulins, Quantitative (09/20/2017 10:03 AM EDT) [facility] Immunoglobulin G 1,144 700 - 1,600 mg/dL [facility] IgA 518(H) 70 - 400 mg/dL [facility] IgM 93 40 - 230 mg/dL [facility] Blood specimen (specimen) 09/20/2017 10:03 AM EDT 09/20/2017 10:23 AM EDT Narrative Resulting Agency Comment Spec In Lab Jose Quinones MD CHEMISTRY ORDERA BLES Performing Organization Address City/[facility]/ZIP Co de Phone Number [facility] [place] [place] [address] * Free Light Chains, Serum (09/20/2017 10:03 AM EDT) [place] Free Light Chains 1.71 0.81 - 2.98 mg/dL [facility] Comment: Please be advised that following a multi-institution study the reference interval for Serum Free Light Chains was updated June 09, 2017. [place]ambda Free Light Chains 1.66 0.86 - 1.99 mg/dL [facility] Comment: Please be advised that following a multi-institution study the reference interval for Serum Free Light Chains was updated June 09, 2017. [place]/Lambda Free Light Chain Ratio 1.0301 0.5000 - 2.4300 [facility] Comment: Please be advised that following a multi-institution study the reference interval for Serum Free Light Chains was updated June 09, 2017. Blood specimen (specimen) 09/20/2017 10:03 AM EDT 09/20/2017 10:23 AM EDT Narrative Resulting Agency Comment Spec In Lab Jose Quinones MD CHEMISTRY ORDERA BLES [facility] [place] [address] * Protein Electrophoresis, serum (09/20/2017 10:03 AM EDT) Pathologist [facility] Total Prot Electrophoresis 7.4 6.1 - 8.0 gm/dL [facility] Albumin Electrophoresis 4.58 3.60 - 6.00 gm/dL [facility] Alpha 1 Globulin 0.15 0.10 - 0.30 gm/dL [facility] Alpha 2 Globulin 0.77 0.40 - 0.90 gm/dL [facility] Beta Globulin 0.84 0.50 - 1.00 gm/dL [facility] Gamma Globulin 1.06 0.50 - 1.30 gm/dL [facility] M1 Band None Detected [facility] Blood specimen (specimen) 09/20/2017 10:03 AM EDT 09/20/2017 10:23 AM EDT Narrative Resulting Agency Comment Spec In Lab Jose Quinones MD CHEMISTRY ORDERA BLES Performing Organization Address [facility] Co de Phone Number [facility] [place] [address] * Copper, serum (09/20/2017 10:03 AM EDT) Pathologist [facility] Copper (SEPTEMBER) 1.05 0.75 - 1.45 mcg/mL [facility] Comment: ADDITIONAL INFORMATION This test was developed and its performance characteristics determined by [facility] in a manner consistent with CLIA requirements. This test has not been cleared or approved by the U.S. Food and Drug Administration. Test Performed by: [facility] [address] [place] [address] Blood specimen (specimen) 09/20/2017 10:03 AM EDT 09/20/2017 11:07 AM EDT Narrative Resulting Agency Comment Spec In Lab Jose Quinones MD LAB SEND OUT ORD ERABLES Performing Organization Address [facility] Co de Phone Number [facility] [place] [address] * (ABNORMAL) Comprehensive metabolic panel (non-fasting) (09/20/2017 10:03 AM EDT) Glucose 102 65 - 199 mg/dL [facility] Comment:Diabetes: >=200 mg/d L plus symptoms Blood Urea Nitrogen 13 10 - 20 mg/dL [facility] Creatinine 0.79(L) 0.80 - 1.50 mg/dL [facility] Sodium 140 135 - 145 mmol/L [facility] Potassium 4.2 3.5 - 5.0 mmol/L [facility] Comment: Please note: ??Patients with WBC >100,000 may have falsely elevated Potassium levels. ??For accurate Potassium quantification in these patients send serum separator tube (gold top) for subsequent determinations. ??Contact the Clinical Chemistry Laboratory if there are any questions. Chloride 103 98 - 107 mmol/L [facility] Carbon Dioxide 25 22 - 31 mmol/L [facility] Anion Gap 12 5 - 15 mmol/L [facility] Calcium 9.6 8.5 - 10.5 mg/dL [facility] Protein, Total 7.6 6.1 - 8.0 gm/dL [facility] Albumin 4.3 3.2 - 5.2 gm/dL [facility] Aspartate Aminotransferase 24 0 - 39 unit/L [facility] Alanine Aminotransferase 30 0 - 55 unit/L [facility] Alkaline Phosphatase 67 40 - 120 unit/L [facility] Bilirubin, Total 0.6 0.2 - 1.3 mg/dL [facility] Est Glomerular Filtration Rate >60 >=60 [facility] Comment: The reported eGFR should be multiplied by 1.2 for patients. The MDRD is not an appropriate measure of renal function for patients with body mass extremes or in patients with acute kidney failure. http://[employer]/DHnkdep [email or web address]://[email or web address]/DHMCnkf Blood specimen (specimen) 09/20/2017 10:03 AM EDT 09/20/2017 10:23 AM EDT Narrative Resulting Agency Comment Spec In Lab Jose Quinones MD CHEMISTRY ORDERA BLES [facility] [address] * Reticulocyte Count (09/20/2017 10:03 AM EDT) Reticulocyte % 1.7 0.7 - 2.6 % [facility] Retic Abs # 0.060 0.030 - 0.120 x10(6)/mcL [facility] Immature Retic% 12.1 0.0 - 15.6 % [facility] Reticulated Hgb 37.5 31.3 - 40.2 pg [facility] Blood specimen (specimen) 09/20/2017 10:03 AM EDT 09/20/2017 10:23 AM EDT Narrative Resulting Agency Comment Spec In Lab Jose Quinones MD HEMATOLOGY ORDER SUKHI Performing Organization Address City/State/[facility] Co de Phone Number [facility] [place] [address] documented in this encounter Visit Diagnoses Diagnosis Anemia, unspecified type documented in this encounter Care Teams Tailings Worker Relationship Specialty Start Date End Date Elena Bullock APRN [address] [place] [address] PCP - General Family Medicine 09/20/17 documented as of this encounter
--- OUTSIDE RECORDS SUMMARY | 2024-03-28 08:24 | XMS_ITS | Clinical Summary ---
Author Organization [facility] Address [address] [place] [address] Care Team Providers Care Novelty Dipper Name Role Phone Unavailable Primary Care Provider Unavailabl e Social History Tobacco Use Types Packs/Day Years Used Date Smoking Tobacco: Never Assessed Sex and Gender Information Value Date Recorded Sex Assigned at Not on file Gender Identity Not on file Sexual Orientation Not on file Plan of Treatment Health Maintenance Due Date Last Done Comments Hepatitis C Screen 1960 RSV Immunization ( o r 60+ Years) (1 - 1-dose 60+ series) 2019 COVID-19 Vaccine ( season) 2023
--- OUTSIDE RECORDS SUMMARY | 2024-03-28 08:24 | XMS_ITS | Encounter Summary ---
Author Organization [facility] Address [facility] [place] [address] Care Team Providers Care Animal Husbandry Professor Name Role Phone Quenapoleon Elena PHIPPS Primary Care Provider Encounter Details Date Type Department Care Team (Late st Contact Info) Description 07/04/2018 Ancillary Procedure Radiology Library [place] [address] Elena Bullock APRN [address] [place], [place] [address] Social History Tobacco Use Types Packs/Day Years [...] 06/07/2024 9:00 AM EST Appointment [place] [phone] 06/07/2024 11:00 AM EST [place] [phone] Braydon Lunsford MD [facility] [place] [address] documented as of this encounter Procedures Procedure Name Priority Date/Time Associated Diagnosis Comments FILM LIBRARY STORAGE ONLY DX CHEST Routine 07/04/2018 12:00 AM EST documented in this encounter Results * Film Library- Storage Only DX Chest (07/04/2018 12:00 AM EST) Narrative LENA - 09/24/2021 3:29 PM EDT This exam is auto-finalizing. It's purpose is for storage only. Elena Adjdayana PORTABLE PINCH RIVETER IMG FILM LIBRARY OR DERABLES Performing Organization Address City/State/[facility] Co de Phone Number [place], [place] documented in this encounter Visit Diagnoses Not on filedocumented in this encounter Care Teams Animal Husbandry Professor Relationship Specialty Start Date End Date Elena Bullock APRN [address] [place] [address] PCP - General Family Medicine 09/20/17 documented as of this encounter
--- OUTSIDE RECORDS SUMMARY | 2024-03-28 08:24 | XMS_ITS | Encounter Summary ---
Author Organization [facility] Address [facility] [place] [address] Care Team Providers Care Space Systems Operations Craftsman Name Role Phone Quenapoleon Elena PHIPPS Primary Care Provider Encounter Details Date Type Department Care Team (Late st Contact Info) Description 07/10/2018 Ancillary Procedure Radiology Library [place] [address] Elena Bullock APRN [address] [place], [place] [address] Social History Tobacco Use Types Packs/Day Years [...] 06/07/2024 9:00 AM EST [place] [phone] 06/07/2024 11:00 AM EST [place] [phone] Braydon Lunsford MD [facility] [place] [address] documented as of this encounter Procedures Procedure Name Priority Date/Time Associated Diagnosis Comments FILM LIBRARY STORAGE ONLY DX CHEST Routine 07/10/2018 12:00 AM EST documented in this encounter Results * Film Library- Storage Only DX Chest (07/10/2018 12:00 AM EST) Narrative LENA - 09/24/2021 3:28 PM EDT This exam is auto-finalizing. It's purpose is for storage only. Elena Adjdayana RESTORATIVE REHAB AIDE IMG FILM LIBRARY OR DERABLES Performing Organization Address City/State/[facility] Co de Phone Number [place], [place] documented in this encounter Visit Diagnoses Not on filedocumented in this encounter Care Teams Space Systems Operations Craftsman Relationship Specialty Start Date End Date Elena Bullock APRN [address] [place] [address] PCP - General Family Medicine 09/20/17 documented as of this encounter
--- OUTSIDE RECORDS SUMMARY | 2024-03-28 08:24 | XMS_ITS | Encounter Summary ---
Author Organization [facility] Address [address] [place] [address] Care Team Providers Care Licensed Nursing Assistant Name Role Phone Unavailable Primary Care Provider Unavailabl e Encounter Details Date Type Department Care Team (Late st Contact Info) Description 06/01/2021 Lab Requisition [facility] Pathology & Laboratory Medicine - [facility] [address] [place] [address] Outr Resulting Lab, Provider Social History Tobacco [...] Priority Date/Time Associated Diagnosis Comments ZZCOVID-19 TEST [facility] PCR Today 05/31/2021 11:50 EST COVID-19 TESTING Routine 05/31/2021 11:5 0 EST documented in this encounter Results * COVID-19 TEST [facility] PCR (05/31/2021 11:50 EST) Swab 05/31/2021 11:5 0 EST 06/01/2021 16:56 EST Provider Outr Resulting Lab MICROBIOLOGY - GENERAL ORDERABLES [facility] [address] [place] [address] * COVID-19 TESTING (05/31/2021 11:50 EST) COVID-19 rt-PCR Result Negative Negative 06/02/2021 8:55 EST [facility] Comment: This test has not [...] clinical observations, patient history, and epidemiological information. Testing was performed using the kurtis SARS-CoV-2 assay ([employer] on the Kurtis 6800 System Performing Lab Kurtis 6800 [facility] 06/02/2021 8:55 EST [facility] Swab 05/31/2021 11:5 0 EST 06/01/2021 16:56 EST Provider Outr Resulting Lab MICROBIOLOGY - GENERAL ORDERABLES [facility] [address] [place] [address] documented in this encounter Visit Diagnoses Not on filedocumented in this encounter
--- OUTSIDE RECORDS SUMMARY | 2024-03-28 08:24 | XMS_ITS | Encounter Summary ---
Author Organization [facility] [place] [address] Care Team Providers Care Chemical Equipment Repairer Name Role Phone AraRhodaElenashanita PHIPPS Primary Care Provider Encounter Details Date Type Department Care Team (Latest Contact Info) Description 01/16/2019 8:40 AM EDT - 01/16/2019 11:59 PM EDT Hospital Encounter [place] [address] Macrocytic anemia Discharge Disposition: Home Social History Tobacco Use Types Packs/Day Years Used Date Smoking Tobacco: Never Smokeless Tobacco: Never Sex and Gender Information Value Date Recorded Sex Assigned at Not on file Gender Identity Not on file Sexual Orientation Not on file documented as of this encounter Medications at Time of Discharge Medication Sig Dispensed Refills Start Date End Date cetirizine (ZYRTEC) 10 mg Tablet Take 10 [...] 06/07/2024 9:00 AM [place] [phone] 06/07/2024 11:00 AM EST Office Visit Pulmonology at [facility] [place] [address] Braydon Lunsford MD [facility] [place] [address] documented as of this encounter Procedures Procedure Name Priority Date/Time Associated Diagnosis Comments HEMOGRAM Routine 01/16/2019 9:04 AM EDT Macrocytic anemia DIFFERENTIAL, AUTOMATED Routine 01/16/2019 9:04 AM EDT Macrocytic anemia HC [facility] COPPER SERUM Routine 01/16/2019 9 :04 AM EDT Macrocytic anemia PLATELET COUNT Routine 01/16/2019 9:04 AM EDT HC CBC,PLT & AUTO DIFF Routine 01/16/2019 9:04 AM EDT Macrocytic anemia documented in this encounter Results * (ABNORMAL) Platelet count (01/16/2019 9:04 AM EDT) Platelet 139(L) 145 - 357 x10(3)/mc L [facility] Immature Plt % 2.5 0.0 - 7.4 % [facility] Comment: Limitation of the Immature Platelet Fraction (IPF)-May be less reliable when the platelet count is less than 53r294/uL due to statistical imprecision. The IPF value provides an assessment of the Bone Marrow production status. ??It is useful in differentiating Thrombocytopenia caused by platelet destruction/consumption versus decreased production. It also helps to determine the imminent release of platelets and can be therefore a helpful parameter in Chemotherapy and Bone marrow transplant patients. ELEVATED IPF value: ?? When the bone marrow is in a state of over production such as when increased destruction and consumption are the underlying issue. ?? When the marrow is recovering post chemotherapy or bone marrow transplant. LOW to NORMAL IPF value: ?? When the bone marrow in not responding and is in a decreased state of production. References: [employer] The Clinical Value of the Immature Platelet Fraction (IPF) in Cell Recovery Document Number 10-1143 10/2010 [employer] The Role of the Immature Platelet Fraction (IPF) in the Differential Diagnosis of Thrombocytopenia, Document MKT-10-1209 V05 P05 Blood specimen (specimen) Venous Draw / Unknown 01/16/2019 9:04 AM EDT 01/16/2019 9:15 AM EDT Narrative Resulting Agency Comment Spec In Lab Jose Quinones MD HEMATOLOGY ORDER SUKHI [facility] [place] [address] * Differential, Automated (01/16/2019 9:04 AM EDT) Neutrophil % 51.3 % [facility] Neutrophil Absolute 2.18 1.70 - 6.10 x10(3)/[facility] Lymph % 26.1 % [facility] Lymphocytes Abs 1.1 0.9 - 3.2 x10(3)/[facility] Monocyte % 12.7 % [facility] Monocyte Abs 0.5 0.3 - 0.9 x10(3)/[facility] Eos % 8.9 % [facility] Eosinophils Abs 0.4 0.0 - 0.4 x10(3)/[facility] Basophil % 0.5 % [facility] Baso Absolute 0.0 0.0 - 0.1 x10(3)/[facility] Immature Gran % 0.50 % [facility] Comment: Immature granulocytes(IG's)percentage and absolute count will include metamyelocytes, myelocytes, and promyelocytes. Blood smears from CBCs yielding IG's will be scanned manually for concordance. If this scan disagrees with the automated IG or if promyelocytes are noted, a manual differential will be performed. Immature Gran Absolute 0.02 0.00 - 0.04 x10(3)/[facility] Blood specimen (specimen) 01/16/2019 9:04 AM EDT 01/16/2019 9:15 AM EDT Narrative Resulting Agency Comment Spec In Lab Jose Quinones MD HEMATOLOGY ORDER SUKHI [facility] [place] [address] * (ABNORMAL) Hemogram (01/16/2019 9:04 AM EDT) White Blood Cell 4.2 4.0 - 9.5 x10(3)/mc L [facility] Red Blood Cell 4.25(L) 4.58 - 5.54 x10(6)/mc L [facility] Hemoglobin 14.1 13.7 - 16.5 gm/dL [facility] Hematocrit 41.7 40.5 - 48.5 % [facility] Mean Cell Volume 98.1(H) 82.9 - 93.1 [facility] Mean Cell Hemoglobin 33.2(H) 27.5 - 32.1 [facility] Mean Cell Hemoglobin Concentration 33.8 32.0 - 35.7 gm/dL [facility] Platelet 139(L) 145 - 357 x10(3)/mc L [facility] RDW Standard Deviation 46.2(H) 36.0 - 45.0 [facility] RDW coefficient of variation 13.0 11.4 - 13.8 % [facility] Mean Platelet Volume 9.9 7.6 - 12.9 [facility] NRBC% auto 0.0 % [facility] NRBC Absolute 0.000 0.000 - 0.000 x10(3)/ L [facility] Blood specimen (specimen) 01/16/2019 9:04 AM EDT 01/16/2019 9:15 AM EDT Narrative Resulting Agency Comment Spec In Lab Jose Quinones MD HEMATOLOGY ORDER SUKHI [facility] [place] [place] [address] * Copper, serum (01/16/2019 9:04 AM EDT) Copper (SEPTEMBER) 1.08 0.75 - 1.45 mcg/mL [facility] Comment: ADDITIONAL INFORMATION This test was developed and its performance characteristics determined by [facility] in a manner consistent with CLIA requirements. This test has not been cleared or approved by the U.S. Food and Drug Administration. Test Performed by: [facility] [address] [place] [id number] Blood specimen (specimen) 01/16/2019 9:04 AM EDT 01/16/2019 9:38 AM EDT Narrative Resulting Agency Comment Spec In Lab Jose Quinones MD LAB SEND OUT ORD ERABLES [facility] [place] [address] documented in this encounter Visit Diagnoses Diagnosis Macrocytic anemia Unspecified deficiency anemia documented in this encounter Care Teams Chemical Equipment Repairer Relationship Specialty Start Date End Date Elena Bullock APRN [address] [place] [address] PCP - General Family Medicine 09/20/17 documented as of this encounter
--- OUTSIDE RECORDS SUMMARY | 2024-03-28 08:24 | XMS_ITS | Encounter Summary ---
Author Organization [facility] Address [facility] [place] [address] Care Team Providers Care Etl Architect Name Role Phone Quenapoleon Elena PHIPPS Primary Care Provider Encounter Details Date Type Department Care Team (Late st Contact Info) Description 07/25/2018 Ancillary Procedure Radiology Library at [facility] [place] [address] Elena Bullock APRN [address] [place], [place] [address] Social History Tobacco Use Types Packs/Day Years [...] 06/07/2024 9:00 AM EST [place]ointment [place] [phone] 06/07/2024 11:00 AM EST [place] [phone] Braydon Lunsford MD [facility] [place]ULMONARY [place] [address] documented as of this encounter Procedures Procedure Name Priority Date/Time Associated Diagnosis Comments FILM LIBRARY STORAGE ONLY DX CHEST Routine 07/25/2018 12:00 AM EST documented in this encounter Results * Film Library- Storage Only DX Chest (07/25/2018 12:00 AM EST) Narrative LENA - 09/24/2021 3:30 PM EDT This exam is auto-finalizing. It's purpose is for storage only. Elena Adjdayana TRAVEL INFORMATION CENTER SUPERVISOR IMG FILM LIBRARY OR DERABLES Performing Organization Address City/State/[facility] Co de Phone Number [place], [place] documented in this encounter Visit Diagnoses Not on filedocumented in this encounter Care Teams Etl Architect Relationship Specialty Start Date End Date Elena Bullock APRN [address] [place] [address] PCP - General Family Medicine 09/20/17 documented as of this encounter
--- OUTSIDE RECORDS SUMMARY | 2024-03-28 08:24 | XMS_ITS | Encounter Summary ---
Author Organization [facility] Address [facility] [place] [address] Care Team Providers Care Patch Washer Name Role Phone Ara Elena PHIPPS Primary Care Provider Reason for Visit * Reason Comments Follow-up Encounter Details Date Type Department Care Team (Late st Contact Info) Description 02/12/2020 4:00 PM EDT Office Visit [place]ology [place] [phone] Jose Quinones MD [facility] [place] [address] Macrocytic anemia Social History Tobacco Use Types Packs/Day Years Used Date Smoking Tobacco: Never Smokeless Tobacco: Never Sex and Gender Information Value Date Recorded Sex Assigned at Not on file Gender Identity Not on file Sexual Orientation Not on file documented as of this encounter Last Filed Vital Signs Vital Sign Reading Time Taken Comments Blood Pressure 123/73 02/12/2020 3:15 PM EDT Pulse 56 02/12/2020 3:15 PM EDT Temperature 36.6 ??C (97.9 ??F) 02/12/2020 3:15 PM ED T Respiratory Rate 20 02/12/2020 3:15 PM EDT Oxygen Saturation 99% 02/12/2020 3:15 PM EDT Inhaled Oxygen Concentration - - Weight 91.6 kg (201 lb 14.4 oz) 02/12/2020 3:15 PM EDT Height 169.6 cm (5' 6.77) 02/12/2020 3:15 PM ED T Body Mass Index 31.84 02/12/2020 3:15 PM EDT documented in this encounter Progress Notes * Jose Conway MD - 02/12/2020 4:00 PM EDT Images from the original note were not included. HEMATOLOGY FOLLOW UP VISIT NOTE REASON FOR VISIT: Zachery Whittaker is a 60 y.o. male presenting for f/up. HISTORY OF PRESENT ILLNESS Zachery Whittaker is a 60 y.o. healthy male with no significant PMH, presenting for evaluation of pancytopenia. ?? Presentation: [...] Hgb of 13.4, MCV of 100.8. ?? week of August: Found to have a dental abscess and was prescribed clindamycin 150mg tablet qid x 2 weeks on 08/30 followed by extraction of that tooth. ?? F/up labs on 09/06/17 revealed normalization of WBC and platelet count with persistent anemia with Hgb of 12.5, MCV of 100.6. ?? W/up revealed b12 >1000, folic acid normal at 14.3. Normal copper level. INTERIM HISTORY: In office today, Zachery is here for f/up. He feels pretty healthy. - No new new issues. - Not taking any meds except MV and cetrizine. - He is working 10-13 hours a day ,4 days a week. - Energy : good. - No infections since last seen. - No fevers, no night sweats; No unexplained weight loss; - No active cardiac/resp/GI issues; Rest of the ROS is negative; REVIEW OF SYSTEMS Constitutional --Energy level: good --Pain: Non new --Fevers/chills/sweats: No --Unexpected weight loss or gain: No Eyes - No change in vision Ears, nose, throat - No change hearing, no oral or throat pain or thrush Cardiovascular --SOB: No --LUQUE: No --chest pain: No Respiratory --Cough: No --SOB, LUQUE: No Gastrointestinal --Appetite: good --Nausea/vomiting/diarrhea/constipation: No - Abd pain: as above Genitourinary --Dysuria or hematuria: No Musculoskeletal --Muscle pain or weakness: No --Joint pain or swelling: pain in feet from OA; Immune System --Recent infections: No Hematology/Lymph --Bruising/bleeding/melena: No --Enlarged nodes or other masses: No Skin --Rashes or petechiae: No Neuro - No Other ROS: All negative MEDICATIONS ??? cetirizine (ZYRTEC) 10 mg Tablet ??? Multivits/Iron Fum/FA/D3/Lycop (MULTI FOR HIM ORAL) ??? loratadine (CLARITIN) 10 mg Tablet ??? hydrOXYzine (ATARAX) 25 mg Tablet ??? naproxen sodium (ANAPROX) 550 mg Tablet ALLERGIES/ADR Allergies Allergen Reactions ??? Augmentin [Amoxicillin-Pot Clavulanate] Other (See Comments) Turned skin yellow ??? Pollen Extracts PERSONAL and SOCIAL HISTORY Lives in: [facility] with his GF, Julia Dela Cruz: [phone]. 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 OK to leave message on machine. ?? FAMILY HISTORY No biological children; - 1 brother and 2 sisters: all are healthy; - Mother : alive and healthy at 86. - No cancers or blood disorders in the family; PHYSICAL EXAM VITAL SIGNS: Blood pressure 123/73, pulse 56, temperature 36.6 ??C (97.9 ??F), temperature source Temporal, resp. rate 20, height 169.6 cm (5' 6.77), weight 91.6 kg (201 lb 14.4 oz), SpO2 99 %. GENERAL: Zachery Whittaker is a well-appearing 60 y.o. male in no acute distress. HEENT: [...] tenderness. SKIN: No rashes, bruises or petechiae. NEUROLOGICAL: Alert and oriented to person, place and time; No focal neurological deficits; PSYCHIATRIC: normal affect and mood LABORATORY Recent Results (from the past 72 hour(s)) Hemogram Result Value Ref Range WBC 5.5 4.0 - 9.5 x10(3)/mcL RBC 4.01 (L) 4.58 - 5.54 x10(6)/mcL Hemoglobin 13.6 (L) 13.7 - 16.5 gm/dL Hematocrit 39.4 (L) 40.5 - 48.5 % MCV 98.3 (H) 82.9 - 93.1 fL MCH 33.9 (H) 27.5 - 32.1 pg MCHC 34.5 32.0 - 35.7 gm/dL Platelets 160 145 - 357 x10(3)/mcL RDWSD 46.0 (H) 36.0 - 45.0 fL RDWCV 12.9 11.4 - 13.8 % MPV 10.2 7.6 - 12.9 fL nRBC % Auto 0.0 % nRBC Abs Auto 0.000 0.000 - 0.000 x10(3)/mcL Differential, Automated Result Value Ref Range Neutrophils % 44.2 % Neutr Abs (ANC) 2.45 1.70 - 6.10 x10(3)/mcL Lymphocytes % 37.4 % Lymphocytes Abs 2.1 0.9 - 3.2 x10(3)/mcL Monocytes % 8.8 % Monocyte Abs 0.5 0.3 - 0.9 x10(3)/mcL Eosinophils % 8.7 % Eosinophils Abs 0.5 (H) 0.0 - 0.4 x10(3)/mcL Basophils % 0.5 % Basophils Abs 0.0 0.0 - 0.1 x10(3)/mcL Immature Gran % 0.40 % [place] Gran Abs 0.02 0.00 - 0.04 x10(3)/mcL RADIOLOGY - None ASSESSMENT & PLANS # Macrocytic anemia and intermittent thrombocytopenia: w/up neg for nutritional deficiencies. No evidence of monoclonal gammopathies. His CBC today shows Hgb of 13.6g/dL , with persistent mild macrocytosis and normal platelet count. As his CBC has been overall stable for > 2 years now, with borderline intermittent cytopenias., I do not recommend any further f/ups with hematology. I recommend his PCP to check his CBC once a year and to alert me if his CBC abnormalities worsen. I gave him my contact information again to contact me for any Qs or concerns. He agreed with the plan. Jose Conway MD [facility] 02/12/20 CC: Elena Bullock APRN documented in this encounter Plan of Treatment Upcoming Encounters Date Type Department Care Team (Late st Contact Info) Description 06/07/2024 9:00 AM EST [place] [address] 06/07/2024 11:00 AM EST [place] [address] Braydon Lunsford MD [facility] [place] [address] documented as of this encounter Visit Diagnoses Diagnosis Macrocytic anemia Unspecified deficiency anemia documented in this encounter Care Teams Patch Washer Relationship Specialty Start Date End Date Elena Bullock APRN [address] [place] [address] PCP - General Family Medicine 09/20/17 documented as of this encounter
--- OUTSIDE RECORDS SUMMARY | 2024-03-28 08:24 | XMS_ITS | Encounter Summary ---
[place] [address] Care Team Providers Care Finance Administrator Name Role Phone AmberElena anne DESIRE Primary Care Provider Encounter Details Date Type Department Care Team (Latest Contact Info) Description 12/20/2017 8:43 AM EDT - 12/20/2017 11:59 PM EDT Hospital Encounter Hematology [place] [address] Anemia, unspecified type Discharge Disposition: [...] Sig Dispensed Refills Start Date End Date loratadine (CLARITIN) 10 mg Tablet Take 10 [...] 06/07/2024 9:00 AM EST Appointment [place] [phone] 06/07/2024 11:00 AM EST Office [place] [address] Braydon Lunsford MD [facility] [place] [address] documented as of this encounter Procedures Procedure Name Priority Date/Time Associated Diagnosis Comments CRP, ACUTE INFLAMMATION Routine 12/20/2017 8:52 AM EDT Anemia, unspecified type IMMUNOGLOBULINS, QUANTITATIVE Routine 12/20/2017 8:52 AM EDT Anemia, unspecified type HEMOGRAM Routine 12/20/2017 8:52 AM EDT Anemia, unspecified type DIFFERENTIAL, AUTOMATED Routine 12/20/2017 8:52 AM EDT Anemia, unspecified type SEDIMENTATION RATE Routine 12/20/2017 8: 52 AM EDT Anemia, unspecified type RETICULOCYTE COUNT Routine 12/20/2017 8: 52 AM EDT Anemia, unspecified type CBC (WITH DIFF) Routine 12/20/2017 8:52 AM EDT Anemia, unspecified type TSH Routine 12/20/2017 8:52 AM EDT Anemia, unspecified type FERRITIN Routine 12/20/2017 8:52 AM EDT Anemia, unspecified type COMPREHENSIVE METABOLIC PANEL Routine 12/20/2017 8:52 AM EDT Anemia, unspecified type documented in this encounter Results * Differential, Automated (12/20/2017 8:52 AM EDT) Neutrophil % 52.7 % [facility] Neutrophil Absolute 2.78 1.70 - 6.10 x10(3)/[facility] LABORAT[facility] Lymph % 28.5 % [facility] Lymphocytes Abs 1.5 0.9 - 3.2 x10(3)/[facility]OR[facility] Monocyte % 9.3 % [facility] Monocyte Abs 0.5 0.3 - 0.9 x10(3)/[facility] LABOR[facility] Eos % 8.5 % [facility] Eosinophils Abs 0.4 0.0 - 0.4 x10(3)/[facility] LABORATORY Basophil % 0.6 % [facility] Baso Absolute 0.0 0.0 - 0.1 x10(3)/[facility] LABORATORY Immature Gran % 0.40 % [facility] Comment: Immature granulocytes(IG's)percentage and absolute count will include metamyelocytes, myelocytes, and promyelocytes. Blood smears from CBCs yielding IG's will be scanned manually for concordance. If this scan disagrees with the automated IG or if promyelocytes are noted, a manual differential will be performed. Immature Gran Absolute 0.02 0.00 - 0.04 x10(3)/[facility] LABORATORY Blood specimen (specimen) 12/20/2017 8:52 AM EDT 12/20/2017 9:08 AM EDT Narrative Resulting Agency Comment Spec In Lab Jose Quinones MD HEMATOLOGY ORDER SUKHI [facility] [place] [address] * (ABNORMAL) Hemogram (12/20/2017 8:52 AM EDT) White Blood Cell 5.3 4.0 - 9.5 x10(3)/mc L [facility] Red Blood Cell 4.07(L) 4.58 - 5.54 x10(6)/mc L [facility] Hemoglobin 13.9 13.7 - 16.5 gm/dL [facility] Hematocrit 40.0(L) 40.5 - 48.5 % [facility] Mean Cell Volume 98.3(H) 82.9 - 93.1 fL [facility] Mean Cell Hemoglobin 34.2(H) 27.5 - 32.1 pg [facility] Mean Cell Hemoglobin Concentration 34.8 32.0 - 35.7 gm/dL [facility] Platelet 136(L) 145 - 357 x10(3)/mc L [facility] RDW Standard Deviation 46.4(H) 36.0 - 45.0 fL [facility] RDW coefficient of variation 13.0 11.4 - 13.8 % [facility] Mean Platelet Volume 10.6 7.6 - 12.9 fL [facility] NRBC% auto 0.0 % [facility] NRBC Absolute 0.000 0.000 - 0.000 x10(3)/mc L [facility] Blood specimen (specimen) 12/20/2017 8:52 AM EDT 12/20/2017 9:08 AM EDT Narrative Resulting Agency Comment Spec In Lab Jose Quinones MD HEMATOLOGY ORDER SUKHI Performing Organization Address City/[facility]/ZIP Co de Phone Number [facility] [place] [address] * TSH (12/20/2017 8:52 AM EDT) Thyroid Stimulating Hormone 2.05 0.27 - 4.20 mlU/ML [facility] Blood specimen (specimen) 12/20/2017 8:52 AM EDT 12/20/2017 9:08 AM EDT Narrative Resulting Agency Comment Spec In Lab Jose Quinones MD CHEMISTRY ORDERA BLES Performing Organization Address City/[facility]/ZIP Co de Phone Number [facility] [place] [address] * CRP, acute inflammation (12/20/2017 8:52 AM EDT) C-Reactive Protein 3.9 <=4.9 mg/L [facility] Blood specimen (specimen) 12/20/2017 8:52 AM EDT 12/20/2017 9:08 AM EDT Narrative Resulting Agency Comment Spec In Lab Jose Quinones MD CHEMISTRY ORDERA BLES Performing Organization Address City/[facility]/ZIP Co de Phone Number [facility] [place] [address] * (ABNORMAL) Sedimentation rate (12/20/2017 8:52 AM EDT) Sedimentation Rate Automated 32(H) 0 - 15 mm/hr [facility] Blood specimen (specimen) 12/20/2017 8:52 AM EDT 12/20/2017 9:08 AM EDT Narrative Resulting Agency Comment Spec In Lab Jose Quinones MD HEMATOLOGY ORDER SUKHI Performing Organization Address [facility] Co de Phone Number [facility] [place] [address] * Comprehensive metabolic panel (non-fasting) (12/20/2017 8:52 AM EDT) Glucose 102 65 - 199 mg/dL [facility] Comment:Diabetes: >=200 mg/d L plus symptoms Blood Urea Nitrogen 13 10 - 20 mg/dL [facility] Creatinine 0.83 0.80 - 1.50 mg/dL [facility] Sodium 138 135 - 145 mmol/L [facility] Potassium 3.9 3.5 - 5.0 mmol/L [facility] Comment: Please note: ??Patients with WBC >100,000 may have falsely elevated Potassium levels. ??For accurate Potassium quantification in these patients send serum separator tube (gold top) for subsequent determinations. ??Contact the Clinical Chemistry Laboratory if there are any questions. Chloride 99 98 - 107 mmol/L [facility] Carbon Dioxide 25 22 - 31 mmol/L [facility] Anion Gap 14 5 - 15 mmol/L [facility] Calcium 9.5 8.5 - 10.5 mg/dL [facility] Protein, Total 7.4 6.1 - 8.0 gm/dL [facility] Albumin 4.2 3.2 - 5.2 gm/dL [facility] Aspartate Aminotransferase 21 0 - 39 unit/L [facility] Alanine Aminotransferase 23 0 - 55 unit/L [facility] Alkaline Phosphatase 59 40 - 120 unit/L [facility] Bilirubin, Total 0.5 0.2 - 1.3 mg/dL [facility] Est Glomerular Filtration Rate 97 >=60 mL/min/1. 73 m?? [facility] Comment: The eGFR was calculated using the CKD-EPI equation. As with all creatinine based estimates of kidney function, eGFR values calculated with the CKD-EPI equation are not accurate in patients with acute kidney failure, extremes of body mass or the acutely ill. http://[employer]/Albiorexnkdep http://[employer]/[facility] CITYnkf eGFR 112 >=60 mL/min/1. 73 m?? [facility] Comment: The eGFR was calculated using the CKD-EPI equation. As with all creatinine based estimates of kidney function, eGFR values calculated with the CKD-EPI equation are not accurate in patients with acute kidney failure, extremes of body mass or the acutely ill. http://[employer]nkdep http://[employer]/DHMCnkf Blood specimen (specimen) 12/20/2017 8:52 AM EDT 12/20/2017 9:08 AM EDT Narrative Resulting Agency Comment Spec In Lab Jose Quinones MD CHEMISTRY ORDERA BLES [facility] [place] [address] * (ABNORMAL) Immunoglobulins, Quantitative (12/20/2017 8:52 AM EDT) Immunoglobulin G 1,067 700 - 1,600 mg/dL [facility] IgA 499(H) 70 - 400 mg/dL [facility] IgM 81 40 - 230 mg/dL [facility] Blood specimen (specimen) 12/20/2017 8:52 AM EDT 12/20/2017 9:07 AM EDT Narrative Resulting Agency Comment Spec In Lab Jose Quinones MD CHEMISTRY ORDERA BLES Performing Organization Address [facility] Co de Phone Number [facility] [place] [address] * (ABNORMAL) Reticulocyte Count (12/20/2017 8:52 AM EDT) Reticulocyte % 1.7 0.7 - 2.6 % [facility] Retic Abs # 0.070 0.030 - 0.120 x10(6)/mcL [facility] Immature Retic% 13.5 0.0 - 15.6 % [facility] Reticulated Hgb 41.6(H) 31.3 - 40.2 pg [facility] Blood specimen (specimen) 12/20/2017 8:52 AM EDT 12/20/2017 9:08 AM EDT Narrative Resulting Agency Comment Spec In Lab Jose Quinones MD HEMATOLOGY ORDER SUKHI Performing Organization Address [facility] de Phone Number [facility] [place] [address] * Ferritin (12/20/2017 8:52 AM EDT) Pathologist [facility] Ferritin 361 30 - 400 ng/mL [facility] Comment: Pediatric reference ranges not verified at [facility], interpret with caution. Reference ranges for females greater than 50 years of age approach values for men, i.e., 30-400 ng/mL. Blood specimen (specimen) 12/20/2017 8:52 AM EDT 12/20/2017 9:07 AM EDT Narrative Resulting Agency Comment Spec In Lab Jose Quinones MD CHEMISTRY ORDERA BLES Performing Organization Address City/[facility]/ZIP Co de Phone Number [facility] [place] [address] documented in this encounter Visit Diagnoses Diagnosis Anemia, unspecified type documented in this encounter Care Teams Finance Administrator Relationship Specialty Start Date End Date Elena Bullock APRN [address] [place] [address] PCP - General Family Medicine 09/20/17 documented as of this encounter
--- OUTSIDE RECORDS SUMMARY | 2024-03-28 08:24 | XMS_ITS | Encounter Summary ---
Author Organization [facility] Address [facility] [place] [address] Care Team Providers Care Janitorial Supervisor Name Role Phone Elena Bullock APRN Primary Care Provider [phone] Encounter Details Date Type Department Care Team (Late st Contact Info) Description 09/22/2021 [place] [phone] Jaclyn Turk Social History Tobacco Use Types [...] 06/07/2024 9:00 AM EST [place] [address] 06/07/2024 11:00 AM EST [place] [phone] Braydon Lunsford MD [facility] [place] [address] documented as of this encounter Visit Diagnoses Not on filedocumented in this encounter Care Teams Janitorial Supervisor Relationship Specialty Start Date End Date Elena Bullock APRN [address] [place] [address] PCP - General Family Medicine 09/20/17 documented as of this encounter
--- OUTSIDE RECORDS SUMMARY | 2024-03-28 08:24 | XMS_ITS | Encounter Summary ---
Author Organization [facility] Address [facility] [address] Care Team Providers Care Wind Farm Support Specialist Name Role Phone Quenapoleon Elena PHIPPS Primary Care Provider Encounter Details Date Type Department Care Team (Late st Contact Info) Description 07/05/2018 Ancillary Procedure Radiology Library [place] [facility] [address] Elena Bullock APRN [address] [place], [place] [address] Social History Tobacco Use Types Packs/Day Years [...] 06/07/2024 9:00 AM EST Appointment [place] [phone] 06/07/2024 11:00 AM EST Office [place] [phone] Braydon Lunsford MD [facility] [place] [address] documented as of this encounter Procedures Procedure Name Priority Date/Time Associated Diagnosis Comments FILM LIBRARY STORAGE ONLY DX CHEST Routine 07/05/2018 12:00 AM EST documented in this encounter Results * Film Library- Storage Only DX Chest (07/05/2018 12:00 AM EST) Narrative LENA - 09/24/2021 3:26 PM EDT This exam is auto-finalizing. It's purpose is for storage only. Elena Adjdayana MANAGER INVESTMENT IMG FILM LIBRARY OR DERABLES Performing Organization Address City/State/[facility] Co de Phone Number [place], [place] documented in this encounter Visit Diagnoses Not on filedocumented in this encounter Care Teams Wind Farm Support Specialist Relationship Specialty Start Date End Date Elena Bullock APRN [address] [place] [address] PCP - General Family Medicine 09/20/17 documented as of this encounter
--- OUTSIDE RECORDS SUMMARY | 2024-03-28 08:24 | XMS_ITS | Encounter Summary ---
Author Organization [facility] Address [address] [place] [address] Care Team Providers Care Music Therapist Name Role Phone Unavailable Primary Care Provider Unavailabl e Encounter Details Date Type Department Care Team (Late st Contact Info) Description 05/27/2022 Lab Requisition [facility] Pathology & Laboratory Medicine - [facility] [address] [place] [address] Outr Resulting Lab, Provider Social History Tobacco [...] Procedure Name Priority Date/Time Associated Diagnosis Comments PSA TOTAL, DIAGNOSTIC Routine 05/27/2022 10:45 EST documented in this encounter Results * PSA TOTAL, DIAGNOSTIC (05/27/2022 10:45 EST) PSA 0.4 <=4.5 ng/mL 05/27/2022 20:42 EST [facility] Blood VENOUS BLOOD / Unknown 05/27/2022 10:45 EST 05/27/2022 18:38 EST Narrative [facility] - 05/27/2022 20:42 EST NOTE: Serum PSA concentration should not be interpreted as absolute evidence for the presence or absence of malignant disease. Assayed on Siemens [employer]VIA Centaur XPT using chemiluminescent technology.??Values obtained by using different assay methods cannot be used interchangeably. Provider Outr Resulting Lab CHEMISTRY & BLOOD GAS ORDERABLES [facility] [address] [place] [address] documented in this encounter Visit Diagnoses Not on filedocumented in this encounter
--- OUTSIDE RECORDS SUMMARY | 2024-03-28 08:24 | XMS_ITS | Encounter Summary ---
Author Organization [facility] Address [address] [place] [address] Care Team Providers Care Environmental Service Aide Name Role Phone Unavailable Primary Care Provider Unavailabl e Encounter Details Date Type Department Care Team (Late st Contact Info) Description 09/04/2021 Lab Requisition [facility] Pathology & Laboratory Medicine - [facility] [address] [place] [address] Outr Resulting Lab, Provider Social History Tobacco [...] Priority Date/Time Associated Diagnosis Comments ZZCOVID-19 TEST [facility] PCR Today 09/03/2021 10:45 EDT COVID-19 TESTING Routine 09/03/2021 10:4 5 EDT documented in this encounter Results * COVID-19 TEST [facility] PCR (09/03/2021 10:45 EDT) Swab 09/03/2021 10:4 5 EDT 09/04/2021 21:19 EDT Provider Outr Resulting Lab MICROBIOLOGY - GENERAL ORDERABLES [facility] [address] [place] [address] * COVID-19 TESTING (09/03/2021 10:45 EDT) COVID-19 rt-PCR Result Negative Negative 09/05/2021 12:06 EDT [facility] Comment: This test [...] epidemiological information. Testing was performed using the crystal SARS-CoV-2 assay ([employer] on the Crystal 6800 System Performing Lab Crystal 6800 [facility] 09/05/2021 12:06 EDT [facility] Swab 09/03/2021 10:4 5 EDT 09/04/2021 21:19 EDT Provider Outr Resulting Lab MICROBIOLOGY - GENERAL ORDERABLES [facility] [address] [place] [address] documented in this encounter Visit Diagnoses Not on filedocumented in this encounter
--- OUTSIDE RECORDS SUMMARY | 2024-03-28 08:24 | XMS_ITS | Encounter Summary ---
Author Organization [facility] [place] [address] Care Team Providers Care Leather Heel Breaster Name Role Phone AraRhodaElenashanita PHIPPS Primary Care Provider Encounter Details Date Type Department Care Team (Latest Contact Info) Description 02/12/2020 2:35 PM EDT - 02/12/2020 11:59 PM EDT Hospital Encounter [place] [address] Macrocytic anemia Discharge Disposition: Home [...] 06/07/2024 9:00 AM EST [place] [phone] 06/07/2024 11:00 AM EST Office Visit Pulmonology at [facility] [place] [address] Braydon Lunsford MD [facility] [place] [address] documented as of this encounter Procedures Procedure Name Priority Date/Time Associated Diagnosis Comments HEMOGRAM Routine 02/12/2020 2:59 PM EDT Macrocytic anemia DIFFERENTIAL, AUTOMATED Routine 02/12/2020 2:59 PM EDT Macrocytic anemia HC CBC,PLT & AUTO DIFF Routine 02/12/2020 2:59 PM EDT Macrocytic anemia documented in this encounter Results * (ABNORMAL) Differential, Automated (02/12/2020 2:59 PM EDT) Neutrophil % 44.2 % [facility] Neutrophil Absolute 2.45 1.70 - 6.10 x10(3)/mc L [facility] Lymph % 37.4 % [facility] Lymphocytes Abs 2.1 0.9 - 3.2 x10(3)/mc L [facility] Monocyte % 8.8 % [facility] Monocyte Abs 0.5 0.3 - 0.9 x10(3)/mc L [facility] Eos % 8.7 % [facility] Eosinophils Abs 0.5(H) 0.0 - 0.4 x10(3)/mc L [facility] Basophil % 0.5 % [facility] Baso Absolute 0.0 0.0 - 0.1 x10(3)/mc L [facility] Immature Gran % 0.40 % [facility] Comment: Immature granulocytes(IG's)percentage and absolute count will include metamyelocytes, myelocytes, and promyelocytes. Blood smears from CBCs yielding IG's will be scanned manually for concordance. If this scan disagrees with the automated IG or if promyelocytes are noted, a manual differential will be performed. Immature Gran Absolute 0.02 0.00 - 0.04 x10(3)/ L [facility] Blood specimen (specimen) 02/12/2020 2:59 PM EDT 02/12/2020 3:02 PM EDT Narrative Resulting Agency Comment Spec In Lab Jose Quinones MD HEMATOLOGY ORDER SUKHI [facility] [place] [address] * (ABNORMAL) Hemogram (02/12/2020 2:59 PM EDT) White Blood Cell 5.5 4.0 - 9.5 x10(3)/[facility]OR[facility] Red Blood Cell 4.01(L) 4.58 - 5.54 x10(6)/[facility] Hemoglobin 13.6(L) 13.7 - 16.5 gm/dL [facility] Hematocrit 39.4(L) 40.5 - 48.5 % [facility] Mean Cell Volume 98.3(H) 82.9 - 93.1 [facility] Mean Cell Hemoglobin 33.9(H) 27.5 - 32.1 pg [facility] Mean Cell Hemoglobin Concentration 34.5 32.0 - 35.7 gm/dL [facility] Platelet 160 145 - 357 x10(3)/[facility] RDW Standard Deviation 46.0(H) 36.0 - 45.0 [facility] RDW coefficient of variation 12.9 11.4 - 13.8 % [facility] Mean Platelet Volume 10.2 7.6 - 12.9 [facility] NRBC% auto 0.0 % [facility] NRBC Absolute 0.000 0.000 - 0.000 x10(3)/[facility] Blood specimen (specimen) 02/12/2020 2:59 PM EDT 02/12/2020 3:02 PM EDT Narrative Resulting Agency Comment Spec In Lab Jose Quinones MD HEMATOLOGY ORDER SUKHI [facility] [place] [address] documented in this encounter Visit Diagnoses Diagnosis Macrocytic anemia Unspecified deficiency anemia documented in this encounter Care Teams Leather Heel Breaster Relationship Specialty Start Date End Date Elena Bullock APRN [address] [place] [address] [address] [place] [address] PCP - General Family Medicine 09/20/17 documented as of this encounter
--- OUTSIDE RECORDS SUMMARY | 2024-03-28 08:24 | XMS_ITS | Encounter Summary ---
Author Organization [facility] Address [facility] [place] [address] Care Team Providers Care Oil Lease Broker Name Role Phone Quenapoleon Elena PHIPPS Primary Care Provider [phone] Encounter Details Date Type Department Care Team (Late st Contact Info) Description 08/22/2018 Ancillary Procedure Radiology Library at [place] [address] Elena Bullock APRN [address] [place], [place] [address] Social History Tobacco Use Types Packs/Day Years [...] 06/07/2024 9:00 AM EST Appointment [place] [phone] 06/07/2024 11:00 AM EST [place] [phone] Braydon Lunsford MD [facility] PULMONARY [place] [address] documented as of this encounter Procedures Procedure Name Priority Date/Time Associated Diagnosis Comments FILM LIBRARY STORAGE ONLY CT CHEST Routine 08/22/2018 12:00 AM EDT documented in this encounter Results * Film Library- Storage Only CT Chest (08/22/2018 12:00 AM EDT) Narrative LENA - 09/24/2021 3:24 PM EDT This exam is auto-finalizing. It's purpose is for storage only. Elena Bullock APRN IMG FILM LIBRARY OR DERABLES Performing Organization Address City/State/[facility] Co de Phone Number [place], [place] documented in this encounter Visit Diagnoses Not on filedocumented in this encounter Care Teams Oil Lease Broker Relationship Specialty Start Date End Date Elena Bullock APRN [address] [place] [address] PCP - General Family Medicine 09/20/17 documented as of this encounter
--- OUTSIDE RECORDS SUMMARY | 2024-03-28 08:24 | XMS_ITS | Encounter Summary ---
Author Organization [facility] Address [facility] [place] [address] Care Team Providers Care Recovery Manager Name Role Phone Elena Bullock APRN Primary Care Provider Encounter Details Date Type Department Care Team (Late st Contact Info) Description 07/10/2018 12:05 AM EST Ancillary Procedure Radiology Library at [facility] [place] [phone] Eelna Bullock APRN [address] [place], [place] [address] Social History Tobacco Use Types Packs/Day Years [...] 06/07/2024 9:00 AM EST Appointment [place] [phone] 06/07/2024 11:00 AM EST Office [place] [phone] Braydon Lunsford MD [facility] [place] [address] documented as of this encounter Procedures Procedure Name Priority Date/Time Associated Diagnosis Comments FILM LIBRARY STORAGE ONLY CT CHEST Routine 07/10/2018 12:05 AM EST documented in this encounter Results * Film Library- Storage Only CT Chest (07/10/2018 12:05 AM EST) Narrative LENA - 09/24/2021 3:32 PM EDT This exam is auto-finalizing. It's purpose is for storage only. Elena Bullock APRN IMG FILM LIBRARY OR DERABLES Performing Organization Address City/State/[facility] Co de Phone Number [place], [place] documented in this encounter Visit Diagnoses Not on filedocumented in this encounter Care Teams Recovery Manager Relationship Specialty Start Date End Date Elena Bullock APRN [address] [place] [address] [address] [place] [address] PCP - General Family Medicine 09/20/17 documented as of this encounter
--- OUTSIDE RECORDS SUMMARY | 2024-03-28 08:24 | XMS_ITS | Encounter Summary ---
[place] [address] Care Team Providers Care Plastic Cablemaking Machine Operator Name Role Phone AmberNidia annejustin PHIPPS Primary Care Provider Encounter Details Date Type Department Care Team (Latest Contact Info) Description 06/27/2018 10:14 AM EST - 06/27/2018 11:59 PM EST Hospital Encounter Hematology [place] [address] Thrombocytopenia; Macrocytosis Discharge Disposition: Home Social History Tobacco Use [...] 06/07/2024 9:00 AM EST Appointment [place] [phone] 06/07/2024 11:00 AM EST Office [place] [address] Braydon Lunsford MD [facility] [place] [address] documented as of this encounter Procedures Procedure Name Priority Date/Time Associated Diagnosis Comments HEMOGRAM Routine 06/27/2018 10:24 AM EST Thrombocytopenia Macrocytosis DIFFERENTIAL, AUTOMATED Routine 06/27/2018 10:24 AM EST Thrombocytopenia Macrocytosis CBC (WITH DIFF) Routine 06/27/2018 10:24 AM EST Thrombocytopenia Macrocytosis documented in this encounter Results * Differential, Automated (06/27/2018 10:24 AM EST) Neutrophil % 47.0 % [facility] Neutrophil Absolute 2.40 1.70 - 6.10 x10(3)/[facility] Lymph % 31.7 % [facility] Lymphocytes Abs 1.6 0.9 - 3.2 x10(3)/[facility] Monocyte % 12.9 % [facility] Monocyte Abs 0.7 0.3 - 0.9 x10(3)/[facility] Eos % 7.8 % [facility] Eosinophils Abs 0.4 0.0 - 0.4 x10(3)/[facility] Basophil % 0.4 % [facility] Baso Absolute 0.0 0.0 - 0.1 x10(3)/[facility] Immature Gran % 0.20 % [facility] Comment: Immature granulocytes(IG's)percentage and absolute count will include metamyelocytes, myelocytes, and promyelocytes. Blood smears from CBCs yielding IG's will be scanned manually for concordance. If this scan disagrees with the automated IG or if promyelocytes are noted, a manual differential will be performed. Immature Gran Absolute 0.01 0.00 - 0.04 x10(3)/[facility] Blood specimen (specimen) 06/27/2018 10:24 AM EST 06/27/2018 10:39 AM EST Narrative Resulting Agency Comment Spec In Lab Jose Quinones MD HEMATOLOGY ORDER SUKHI Performing Organization Address City/State/[facility] Co de Phone Number [facility] [place] [address] * (ABNORMAL) Hemogram (06/27/2018 10:24 AM EST) White Blood Cell 5.1 4.0 - 9.5 x10(3)/[facility] Red Blood Cell 4.02(L) 4.58 - 5.54 x10(6)/ L [facility] Hemoglobin 13.5(L) 13.7 - 16.5 gm/dL [facility] Hematocrit 39.6(L) 40.5 - 48.5 % [facility] Mean Cell Volume 98.5(H) 82.9 - 93.1 fL [facility] Mean Cell Hemoglobin 33.6(H) 27.5 - 32.1 pg [facility] Mean Cell Hemoglobin Concentration 34.1 32.0 - 35.7 gm/dL [facility] Platelet 156 145 - 357 x10(3)/mc L [facility] RDW Standard Deviation 47.5(H) 36.0 - 45.0 [facility] RDW coefficient of variation 13.2 11.4 - 13.8 % [facility] Mean Platelet Volume 10.3 7.6 - 12.9 [facility] NRBC% auto 0.0 % [facility] NRBC Absolute 0.000 0.000 - 0.000 x10(3)/[facility] Blood specimen (specimen) 06/27/2018 10:24 AM EST 06/27/2018 10:39 AM EST Narrative Resulting Agency Comment Spec In Lab Jose Quinones MD HEMATOLOGY ORDER SUKHI [facility] [place] [address] documented in this encounter Visit Diagnoses Diagnosis Thrombocytopenia Thrombocytopenia, unspecified Macrocytosis Other specified diseases of blood and blood-forming organs documented in this encounter Care Teams Plastic Cablemaking Machine Operator Relationship Specialty Start Date End Date Amberdayana DESIRE Parker [address] [place] [address] PCP - General Family Medicine 09/20/17 documented as of this encounter
--- OUTSIDE RECORDS SUMMARY | 2024-03-28 08:24 | XMS_ITS | Referral Summary ---
Author Organization [facility] Address [address] [place] [address] Care Team Providers Care Street Superintendent Name Role Phone Unavailable Primary Care Provider Unavailabl e Social History Tobacco Use Types Packs/Day Years Used Date Smoking Tobacco: Never Assessed Sex and Gender Information Value Date Recorded Sex Assigned at Not on file Gender Identity Not on file Sexual Orientation Not on file Plan of Treatment Not on file
--- OUTSIDE RECORDS SUMMARY | 2024-03-28 08:24 | XMS_ITS | Encounter Summary ---
Author Organization [facility] Address [address] [place] [address] Care Team Providers Care Hydroelectric Mechanic Name Role Phone Unavailable Primary Care Provider Unavailabl e Encounter Details Date Type Department Care Team (Late st Contact Info) Description 06/11/2021 Lab Requisition [facility] Pathology & Laboratory Medicine - [facility] [address] [place] [address] Outr Resulting Lab, Provider Social History Tobacco [...] Priority Date/Time Associated Diagnosis Comments ZZCOVID-19 TEST [facility] PCR Today 06/11/2021 8:30 EST COVID-19 TESTING Routine 06/11/2021 8:30 EST documented in this encounter Results * [facility] (06/11/2021 8:30 EST) Swab 06/11/2021 8:30 EST 06/11/2021 22:01 EST Provider Outr Resulting Lab MICROBIOLOGY - GENERAL ORDERABLES [facility] [address] [place] [address] * COVID-19 TESTING (06/11/2021 8:30 EST) COVID-19 rt-PCR Result Negative Negative 06/12/2021 11:58 EST [facility] Comment: This test has not [...] history, and epidemiological information. Performed on the Hubbub Fusion instrument Performing Lab [place] [facility] 06/12/2021 11:58 EST [facility] Swab 06/11/2021 8:30 EST 06/11/2021 22:01 EST Provider Outr Resulting Lab MICROBIOLOGY - GENERAL ORDERABLES [facility] [address] [place] [address] documented in this encounter Visit Diagnoses Not on filedocumented in this encounter
--- OUTSIDE RECORDS SUMMARY | 2024-03-28 08:24 | XMS_ITS | Encounter Summary ---
Author Organization [facility] Address [facility] [place] [address] Care Team Providers Care Vp Sales Name Role Phone Quenapoleon Elena PHIPPS Primary Care Provider Encounter Details Date Type Department Care Team (Late st Contact Info) Description 09/15/2021 Ancillary Procedure Radiology Library at [facility] [place] [address] Elena Bullock APRN [address] [place], [place] [id number] Social History Tobacco Use Types Packs/Day Years [...] 06/07/2024 9:00 AM EST Appointment [place] [phone] 06/07/2024 11:00 AM EST [place] [phone] Braydon Lunsford MD [facility] [place] [address] documented as of this encounter Procedures Procedure Name Priority Date/Time Associated Diagnosis Comments FILM LIBRARY STORAGE ONLY CT CHEST Routine 09/15/2021 12:00 AM EDT documented in this encounter Results * Film Library- Storage Only CT Chest (09/15/2021 12:00 AM EDT) Narrative LENA - 09/22/2021 12:08 PM EDT This exam is auto-finalizing. It's purpose is for storage only. Elena Bullock APRN IMG FILM LIBRARY OR DERABLES Performing Organization Address City/State/[facility] Co de Phone Number [place], [place] documented in this encounter Visit Diagnoses Not on filedocumented in this encounter Care Teams Vp Sales Relationship Specialty Start Date End Date Elena Bullock APRN [address] [place] [address] [address] [place] [address] PCP - General Family Medicine 09/20/17 documented as of this encounter
--- OUTSIDE RECORDS SUMMARY | 2024-03-28 08:24 | XMS_ITS | Encounter Summary ---
[place] [address] Care Team Providers Care Meat Molder Name Role Phone Elena Bullock APRN Primary Care Provider [phone]- [phone] Reason for Referral * Consultation (Urgent) - Closed Specialty Diagnoses / Procedures Referred By Contalton t Referred To Contact Pulmonology Diagnoses Cough Fawad Colon APRN [address] [place] [address] [facility] Pulmonology [address] [place] [phone] Referral ID Status Reason Start Date Expiration Date V isits Requested Visits Authorized [id number] Closed Consult, Test & Treat PCP Updated and/or Approved 09/22/2021 09/22/2022 6 6 Encounter Details Date Type Department Care Team (Late st Contact Info) Description 09/22/2021 Transcribe Orders eDH Incoming Referrals [phone] Fawad Colon APRN [address] [place], [place] [id number] Cough Social History Tobacco Use Types Packs/Day Years [...] 06/07/2024 9:00 AM EST Appointment [place] [address] 06/07/2024 11:00 AM EST Office [place] [phone] Braydon Lunsford MD [facility] [place] [address] Scheduled Referrals Name Type Priority Associated Diagnoses Order Schedule Referral to Pulmonology Outpatient Referral Routine Cough Ordered: 09/22/2021 documented as of this encounter Visit Diagnoses Diagnosis Cough documented in this encounter Care Teams Meat Molder Relationship Specialty Start Date End Date Elena Bullock APRN [address] [place] [address] PCP - General Family Medicine 09/20/17 documented as of this encounter
--- OUTSIDE RECORDS SUMMARY | 2024-03-28 08:24 | XMS_ITS | Encounter Summary ---
Author Organization [facility] Address [facility] [place] [address] Care Team Providers Care Group Segment Consultant Name Role Phone Ara Elena PHIPPS Primary Care Provider Reason for Visit * Reason Comments Follow-up Encounter Details Date Type Department Care Team (Late st Contact Info) Description 12/20/2017 10:30 AM EDT Office Visit Hematology [place] [phone] Jose Quinones MD [facility] HEMATOLOGY [place] [address] Thrombocytopenia; Macrocytosis Social History Tobacco Use Types Packs/Day Years Used Date Smoking Tobacco: Never Smokeless Tobacco: Never Sex and Gender Information Value Date Recorded Sex Assigned at Not on file Gender Identity Not on file Sexual Orientation Not on file documented as of this encounter Last Filed Vital Signs Vital Sign Reading Time Taken Comments Blood Pressure 110/67 12/20/2017 10:20 AM EDT Pulse 58 12/20/2017 10:20 AM EDT Temperature 36.5 ??C (97.7 ??F) 12/20/2017 1 0:20 AM EDT Respiratory Rate 18 12/20/2017 10:2 0 AM EDT Oxygen Saturation 99% 12/20/2017 10: 20 AM EDT Inhaled Oxygen Concentration - - Weight 88.8 kg (195 lb 12.8 oz) 018 10:20 AM EDT Height 169.9 cm (5' 6.89) 12/20/2017 1 0:20 AM EDT Body Mass Index 30.77 12/20/2017 10:20 AM EDT documented in this encounter Patient Instructions * Patient Instructions* oJse Conway MD - 12/20/2017 10:30 AM EDT Your blood counts today revealed slightly low platelet count and big size of the red blood cells. Iwill see you in 6 months with repeat blood counts for f/up to make sure they don't worsen. documented in this encounter Progress Notes * Jose Conway MD - 12/20/2017 10:30 AM EDT Images from the original note were not included. HEMATOLOGY FOLLOW UP VISIT NOTE REASON FOR VISIT: Zachery Whittaker is a 57 y.o. male referred by Elena Bullock APRN for evaluation of pancytopenia. HISTORY OF PRESENT ILLNESS Zachery Whittaker is [...] b12 >1000, folic acid normal at 14.3 INTERIM HISTORY: In office today, Zachery reports feeling well overall. No new issues since last seen. No further diarrhea; no other s/s of infection; - No abnormal or easy bleeding; - No new meds since last seen; - Intermittent low back pain : chronic ; None new - Energy : stable; - No fevers, no night sweats; No [...] on file for this patient. MEDICATIONS ??? loratadine (CLARITIN) 10 mg Tablet ??? Multivits/Iron Fum/FA/D3/Lycop (MULTI FOR HIM ORAL) ??? hydrOXYzine (ATARAX) 25 mg Tablet ??? naproxen sodium (ANAPROX) 550 mg Tablet ALLERGIES/ADR Allergies Allergen Reactions ??? Augmentin [Amoxicillin-Pot Clavulanate] Other (See Comments) Turned skin yellow ??? Pollen Extracts PERSONAL and SOCIAL HISTORY Lives in: [facility] with his GF, Julia Dela Cruz: [phone]. 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 OK to leave message on machine. ?? FAMILY HISTORY No biological children; - 1 brother and 2 sisters: all are healthy; - Mother : alive and healthy at 86. - No cancers or blood disorders in the family; PHYSICAL EXAM VITAL SIGNS: Blood pressure 110/67, pulse 58, temperature 36.5 ??C (97.7 ??F), resp. rate 18, height 169.9 cm (5' 6.89), weight 88.8 kg (195 lb 12.8 oz), SpO2 99 %. GENERAL: Zachery Whittaker [...] Recent Results (from the past 72 hour(s)) Ferritin Result Value Ref Range Ferritin 361 30 - 400 ng/mL Reticulocyte Count Result Value Ref Range Retic Ct % 1.7 0.7 - 2.6 % Retic Ct Abs 0.070 0.030 - 0.120 x10(6)/mcL Immature Retic% 13.5 0.0 - 15.6 % Reticulated Hgb 41.6 (H) 31.3 - 40.2 pg Immunoglobulins, Quantitative Result Value Ref Range IgG 1067 700 - 1600 mg/dL IgA 499 (H) 70 - 400 mg/dL IgM 81 40 - 230 mg/dL Comprehensive metabolic panel (non-fasting) Result Value Ref Range Glucose Lvl 102 65 - 199 mg/dL BUN 13 10 - 20 mg/dL Creatinine 0.83 0.80 - 1.50 mg/dL Sodium 138 135 - 145 mmol/L Potassium 3.9 3.5 - 5.0 mmol/L Chloride 99 98 - 107 mmol/L CO2 25 22 - 31 mmol/L Anion Gap 14 5 - 15 mmol/L Calcium 9.5 8.5 - 10.5 mg/dL Total Protein 7.4 6.1 - 8.0 gm/dL Albumin 4.2 3.2 - 5.2 gm/dL AST 21 0 - 39 unit/L ALT 23 0 - 55 unit/L Alk Phos 59 40 - 120 unit/L Total Bilirubin 0.5 0.2 - 1.3 mg/dL eGFR 97 >=60 mL/min/1.73 m?? eGFR 112 >=60 mL/min/1.73 m?? Sedimentation rate Result Value Ref Range Sed Rate 32 (H) 0 - 15 mm/hr CRP, acute inflammation Result Value Ref Range CRP 3.9 <=4.9 mg/L TSH Result Value Ref Range TSH 2.05 0.27 - 4.20 mlU/ML Hemogram Result Value Ref Range WBC 5.3 4.0 - 9.5 x10(3)/mcL RBC 4.07 (L) 4.58 - 5.54 x10(6)/mcL Hemoglobin 13.9 13.7 - 16.5 gm/dL Hematocrit 40.0 (L) 40.5 - 48.5 % MCV 98.3 (H) 82.9 - 93.1 fL MCH 34.2 (H) 27.5 - 32.1 pg MCHC 34.8 32.0 - 35.7 gm/dL Platelets 136 (L) 145 - 357 x10(3)/mcL RDWSD 46.4 (H) 36.0 - 45.0 fL RDWCV 13.0 11.4 - 13.8 % MPV 10.6 7.6 - 12.9 fL nRBC % Auto 0.0 % nRBC Abs Auto 0.000 0.000 - 0.000 x10(3)/mcL Differential, Automated Result Value Ref Range Neutrophils % 52.7 % Neutr Abs (ANC) 2.78 1.70 - 6.10 x10(3)/mcL Lymphocytes % 28.5 % Lymphocytes Abs 1.5 0.9 - 3.2 x10(3)/mcL Monocytes % 9.3 % Monocyte Abs 0.5 0.3 - 0.9 x10(3)/mcL Eosinophils % 8.5 % Eosinophils Abs 0.4 0.0 - 0.4 x10(3)/mcL Basophils % 0.6 % Basophils Abs 0.0 0.0 - 0.1 x10(3)/mcL Immature Gran % 0.40 % Sharon Gran Abs 0.02 0.00 - 0.04 x10(3)/mcL RADIOLOGY - None ASSESSMENT & PLANS Zachery Whittaker is a 57 y.o. healthy male presenting for evaluation of pancytopenia. Rpt CBC showed normalization of WBC and platelet count with persistent mild macrocytic anemia. So, his transient leukopenia and thrombocytopenia are most likely 2ry to infection (dental abscess) at that time. W/up is negative for nutritional deficiencies, monoclonal gammopathies. Rpt CBC today revealed normal WBC, Hgb improved to 13.9, and mild thrombocytopenia with plt count of 136k. I don't recommend any further w/up for his very mild thrombocytopenia at this time. I recommend f/up in 6 months with rpt CBC. If he has persistent/worsening cytopenias, we will discuss further w/up at that time. RTC in 6 months with CBC ??for f/up (He prefers Wed AMs). I reviewed my impression and recommendations with Zachery Whittaker and answered all the questionsto his satisfaction. He understands the plan, and knows that he can contact us at any time should any new symptoms, concerns or questions arise. Jose Conway MD Pager: [phone] Staff physician, 12/20/17 CC: Elena Bullock APRN documented in this encounter Plan of Treatment Upcoming Encounters Date Type Department Care Team (Late st Contact Info) Description 06/07/2024 9:00 AM EST Appointment [place] [phone] 06/07/2024 11:00 AM EST Office [place] [phone] Braydon Lunsford MD [facility] DR [place] [address] documented as of this encounter Visit Diagnoses Diagnosis Thrombocytopenia Thrombocytopenia, unspecified Macrocytosis Other specified diseases of blood and blood-forming organs documented in this encounter Care Teams Group Segment Consultant Relationship Specialty Start Date End Date Elena Bullock DESIRE [address] [place] [address] PCP - General Family Medicine 09/20/17 documented as of this encounter
--- OUTSIDE RECORDS SUMMARY | 2024-03-28 08:24 | XMS_ITS | Encounter Summary ---
Author Organization [facility] Address [facility] [place] [address] Care Team Providers Care Tapeman Name Role Phone Ara Elena PHIPPS Primary Care Provider +1- [phone] Reason for Visit * Reason Comments Follow-up Encounter Details Date Type Department Care Team (Late st Contact Info) Description 06/27/2018 11:30 AM EST Office Visit Hematology [place] [address] Jose Quinones MD [facility] [address] [place] [address] Macrocytic anemia Social History Tobacco Use Types Packs/Day Years Used Date Smoking Tobacco: Never Smokeless Tobacco: Never Sex and Gender Information Value Date Recorded Sex Assigned at Not on file Gender Identity Not on file Sexual Orientation Not on file documented as of this encounter Last Filed Vital Signs Vital Sign Reading Time Taken Comments Blood Pressure 106/58 06/27/2018 11:27 AM EST Pulse 54 06/27/2018 11:27 AM EST Temperature 36.4 ??C (97.5 ??F) 06/27/2018 11:[address] Respiratory Rate 18 06/27/2018 11:27 AM EST Oxygen Saturation 100% 06/27/2018 11:27 AM EST Inhaled Oxygen Concentration - - Weight 89 kg (196 lb 3.2 oz) 06/27/2018 11:27 AM EST Height 169.4 cm (5' 6.69) 06/27/2018 11:[address] Body Mass Index 31.01 06/27/2018 11:27 AM EST documented in this encounter Progress Notes * Yerrabothala, Swaroopa, MD - 06/27/2018 11:30 AM EST Images from the original note were not included. HEMATOLOGY FOLLOW UP VISIT NOTE REASON FOR VISIT: Zachery Whittaker is a 58 y.o. male presenting for f/up for anemia. HISTORY OF PRESENT ILLNESS Zachery Whittaker is a 58 y.o. male presenting for evaluation of pancytopenia. [...] b12 >1000, folic acid normal at 14.3. INTERIM HISTORY: In office today, Zachery reports feeling well overall. No new issues since last seen. - Not taking any meds except MV - He relates that he is scheduled for screening colonoscopy next week. - He is working 10-13 hours a [...] Extracts PERSONAL and SOCIAL HISTORY [facility] in: [facility] with his GFJulia: [phone]. 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 OK to leave message on machine. ?? FAMILY HISTORY No biological children; - 1 brother and 2 sisters: all are healthy; - Mother : alive and healthy at 86. - No cancers or blood disorders in the family; PHYSICAL EXAM VITAL SIGNS: Blood pressure 106/58, pulse 54, temperature 36.4 ??C (97.5 ??F), temperature source Temporal, resp. rate 18, height 169.4 cm (5' 6.69), weight 89 kg (196 lb 3.2 oz), SpO2 100 %. GENERAL: Zachery Whittaker is a well-appearing 58 y.o. male in no acute distress. HEENT: [...] SKIN: No rashes, bruises or petechiae. LYMPH: Not examined; NEUROLOGICAL: Alert and oriented to person, place and time; No focal neurological deficits; PSYCHIATRIC: normal affect and mood LABORATORY Recent Results (from the past 72 hour(s)) Hemogram Result Value Ref Range WBC 5.1 4.0 - 9.5 x10(3)/mcL RBC 4.02 (L) 4.58 - 5.54 x10(6)/mcL Hemoglobin 13.5 (L) 13.7 - 16.5 gm/dL Hematocrit 39.6 (L) 40.5 - 48.5 % MCV 98.5 (H) 82.9 - 93.1 fL MCH 33.6 (H) 27.5 - 32.1 pg MCHC 34.1 32.0 - 35.7 gm/dL Platelets 156 145 - 357 x10(3)/mcL RDWSD 47.5 (H) 36.0 - 45.0 fL RDWCV 13.2 11.4 - 13.8 % MPV 10.3 7.6 - 12.9 fL nRBC % Auto 0.0 % nRBC Abs Auto 0.000 0.000 - 0.000 x10(3)/mcL Differential, Automated Result Value Ref Range Neutrophils % 47.0 % Neutr Abs (ANC) 2.40 1.70 - 6.10 x10(3)/mcL Lymphocytes % 31.7 % Lymphocytes Abs 1.6 0.9 - 3.2 x10(3)/mcL Monocytes % 12.9 % Monocyte Abs 0.7 0.3 - 0.9 x10(3)/mcL Eosinophils % 7.8 % Eosinophils Abs 0.4 0.0 - 0.4 x10(3)/mcL Basophils % 0.4 % Basophils Abs 0.0 0.0 - 0.1 x10(3)/mcL Immature Gran % 0.20 % Sharon Gran Abs 0.01 0.00 - 0.04 x10(3)/mcL RADIOLOGY - None ASSESSMENT & PLANS Zachery Whittaker is a 57 y.o. healthy male presenting for f/up for macrocytic anemia. Rest of the 2 blood cell lines (WBC,platelets) are normal. W/up revealed normal iron, B12, folate levels, no evidence of monoclonal gammopathies on SPEP or SFLCs with normal renal function and normalSr. Cr. Quant Igs revealed slightly high IgA which I suspect is likely polyclonal. I discussed wit him that given his age and macrocytosis, MDS is high on the differential and that we will need bone marrow biopsy to evaluate for this and that even if he has MDS, this will not change his management at this time as he will not meet the criteria for initiation of treatment for MDS. So, we both agreed to hold off BM Bx at this time and monitor him with rpt labs as we would do any how even if he hasMDS. RTC in 6 months with CBC ??for f/up (He prefers Wed AMs) I reviewed my impression and recommendations with Zachery Whittaker and answered all the questionsto his satisfaction. He understands the plan, and knows that he can contact us at any time should any new symptoms, concerns or questions arise. Jose Conway MD [facility] 06/29/18 CC: Elena Bullock APRN documented in this encounter Plan of Treatment Upcoming Encounters Date Type Department Care Team (Late st Contact Info) Description 06/07/2024 9:00 AM EST Appointment [place] [phone] 06/07/2024 11:00 AM EST Office [place] [address] Braydon Lunsford MD [facility] [place] [address] documented as of this encounter Visit Diagnoses Diagnosis Macrocytic anemia Unspecified deficiency anemia documented in this encounter Care Teams Tapeman Relationship Specialty Start Date End Date Elena Bullock APRN [address] [place] [address] PCP - General Family Medicine 09/20/17 documented as of this encounter
--- OUTSIDE RECORDS SUMMARY | 2024-03-28 08:24 | XMS_ITS | Encounter Summary ---
Author Organization [facility] Address [facility] [place] [address] Care Team Providers Care Full Stack Engineer Name Role Phone Quenapoleon Elena PHIPPS Primary Care Provider Encounter Details Date Type Department Care Team (Late st Contact Info) Description 09/09/2021 Ancillary Procedure Radiology Library at [facility] [place] [address] Elena Bullock APRN [address] [place], [place] [id number] Social History Tobacco Use Types Packs/Day Years [...] 06/07/2024 9:00 AM EST Appointment [place] [phone] 06/07/2024 11:00 AM EST Office [place] [phone] Braydon Lunsford MD [facility] [place] [address] documented as of this encounter Procedures Procedure Name Priority Date/Time Associated Diagnosis Comments FILM LIBRARY STORAGE ONLY DX CHEST Routine 09/09/2021 12:00 AM EDT documented in this encounter Results * Film Library- Storage Only DX Chest (09/09/2021 12:00 AM EDT) Narrative LENA - 09/22/2021 12:07 PM EDT This exam is auto-finalizing. It's purpose is for storage only. Elena Bullock APRN IMG FILM LIBRARY OR DERABLES Performing Organization Address City/State/[facility] Co de Phone Number [place], [place] documented in this encounter Visit Diagnoses Not on filedocumented in this encounter Care Teams Full Stack Engineer Relationship Specialty Start Date End Date Elena Bullock APRN [address] [place] [place] [address] [address] [place] [address] PCP - General Family Medicine 09/20/17 documented as of this encounter
--- OUTSIDE RECORDS SUMMARY | 2024-03-28 08:24 | XMS_ITS | Encounter Summary ---
Author Organization [facility] Address [facility] [place] [address] Care Team Providers Care Consumer Loan Specialist Name Role Phone Ara Elena PHIPPS Primary Care Provider Reason for Visit * Reason Comments Follow-up Encounter Details Date Type Department Care Team (Late st Contact Info) Description 01/16/2019 9:30 AM EDT Office Visit Hematology [place] [phone] Jose Quinones MD [facility] HEMATOLOGY AND [place] [address] Macrocytic anemia; Thrombocytopenia Social History Tobacco Use Types Packs/Day Years Used Date Smoking Tobacco: Never Smokeless Tobacco: Never Sex and Gender Information Value Date Recorded Sex Assigned at Not on file Gender Identity Not on file Sexual Orientation Not on file documented as of this encounter Last Filed Vital Signs Vital Sign Reading Time Taken Comments Blood Pressure 107/61 01/16/2019 9:27 AM EDT Pulse 52 01/16/2019 9:27 AM EDT Temperature 37 ??C (98.6 ??F) 01/16/2019 9:27 AM EDT Respiratory Rate 16 01/16/2019 9:27 AM EDT Oxygen Saturation 96% 01/16/2019 9:27 AM EDT Inhaled Oxygen Concentration - - Weight 87.1 kg (192 lb) 01/16/2019 9:27 AM EDT Height 169.6 cm (5' 6.77) 01/16/2019 9:27 AM ED T Body Mass Index 30.28 01/16/2019 9:27 AM EDT documented in this encounter Progress Notes * Jose Conway MD - 01/16/2019 9:30 AM EDT Images from the original note were not included. HEMATOLOGY FOLLOW UP VISIT NOTE REASON FOR VISIT: Zachery Whittaker is a 58 y.o. male presenting for f/up. HISTORY OF PRESENT ILLNESS Zachery Whittaker is a 58 y.o. healthy male with no significant PMH, [...] INTERIM HISTORY: In office today, Zachery is accompanied by his girlfriend. He relates that he had colonoscopy in early Jun which was complicated with aspiration pneumonia requiring hospitalization to intensive care. He was found to have a polyp and was recommended to have a rpt colo in 3-5 years. - No abnormal bruising or bleeding. - No other new issues. - Not taking any meds except MV - He is working 10-13 hours a [...] Extracts PERSONAL and SOCIAL HISTORY [facility] with his GFJulia: [phone]. 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 OK to leave message on machine. ?? FAMILY HISTORY No biological children; - 1 brother and 2 sisters: all are healthy; - Mother : alive and healthy at 86. - No cancers or blood disorders in the family; PHYSICAL EXAM VITAL SIGNS: Blood pressure 107/61, pulse 52, temperature 37 ??C (98.6 ??F), temperature source Temporal, resp. rate 16, height 169.6 cm (5' 6.77), weight 87.1 kg (192 lb), SpO2 96 %. GENERAL: Zachery Whittaker is a well-appearing [...] hour(s)) Hemogram Result Value Ref Range WBC 4.2 4.0 - 9.5 x10(3)/mcL RBC 4.25 (L) 4.58 - 5.54 x10(6)/mcL Hemoglobin 14.1 13.7 - 16.5 gm/dL Hematocrit 41.7 40.5 - 48.5 % MCV 98.1 (H) 82.9 - 93.1 fL MCH 33.2 (H) 27.5 - 32.1 pg MCHC 33.8 32.0 - 35.7 gm/dL Platelets 139 (L) 145 - 357 x10(3)/mcL RDWSD 46.2 (H) 36.0 - 45.0 fL RDWCV 13.0 11.4 - 13.8 % MPV 9.9 7.6 - 12.9 fL nRBC % Auto 0.0 % nRBC Abs Auto 0.000 0.000 - 0.000 x10(3)/mcL Differential, Automated Result Value Ref Range Neutrophils % 51.3 % Neutr Abs (ANC) 2.18 1.70 - 6.10 x10(3)/mcL Lymphocytes % 26.1 % Lymphocytes Abs 1.1 0.9 - 3.2 x10(3)/mcL Monocytes % 12.7 % Monocyte Abs 0.5 0.3 - 0.9 x10(3)/mcL Eosinophils % 8.9 % Eosinophils Abs 0.4 0.0 - 0.4 x10(3)/mcL Basophils % 0.5 % Basophils Abs 0.0 0.0 - 0.1 x10(3)/mcL Immature Gran % 0.50 % Sharon Gran Abs 0.02 0.00 - 0.04 x10(3)/mcL RADIOLOGY - None ASSESSMENT & PLANS # Macrocytic anemia and intermittent thrombocytopenia: w/up neg for nutritional deficiencies. No evidence of monoclonal gammopathies. His CBC today shows normal Hgb, with persistent mild macrocytosisand mild thrombocytopenia, with platelet count of 136k . I discussed with him again that given his age, MDS is high on the differential for his macrocytosisand thrombocytopenia and that we will need bone marrow biopsy to evaluate for this and that even ifhe has MDS, this will not change his management at this time as he will not meet the criteria for initiation of treatment for MDS for his mild cytopenias. So, we both agreed to hold off BM Bx at thistime and monitor him with rpt labs as we would do any how even if he has MDS. Recommendation: - No intervention recommended at this time: We will follow watch and wait approach. - Please repeat CBC in 6 months (Jun, 2019) at his PCP's office (to be arranged by his PCP). Pleasenotify me if there is a significant change from his baseline. I advised the pt to remind his PCP about this. - I will see him in 12 months with CBC ??for f/up (He prefers Wed AMs). I reviewed my impression and recommendations with Zachery Whittaker and answered all the questionsto his satisfaction. He understands the plan, and knows that he can contact us at any time should any new symptoms, concerns or questions arise. Jose Conway MD [facility] 01/16/19 CC: Elena Bullock APRN documented in this encounter Plan of Treatment Upcoming Encounters Date Type Department Care Team (Late st Contact Info) Description 06/07/2024 9:00 AM EST [place]ointment [place] [phone] 06/07/2024 11:00 AM EST [place] [address] Braydon Lunsford MD [facility] DR PULMONARY [place] [address] documented as of this encounter Results * Copper, serum (01/16/2019 9:04 AM EDT) Copper (SEPTEMBER) 1.08 0.75 - 1.45 mcg/mL [facility] Comment: ADDITIONAL INFORMATION This test was developed and its performance characteristics determined by [facility] in a manner consistent with CLIA requirements. This test has not been cleared or approved by the U.S. Food and Drug Administration. Test Performed by: [facility] - [facility] [address] [place] [address] Blood specimen (specimen) 01/16/2019 9:04 AM EDT 01/16/2019 9:38 AM EDT Narrative Resulting Agency Comment Spec In Lab Jose Quinones MD LAB SEND OUT ORD CEM [facility] [place] [address] documented in this encounter Visit Diagnoses Diagnosis Macrocytic anemia Unspecified deficiency anemia Thrombocytopenia Thrombocytopenia, unspecified documented in this encounter Care Teams Consumer Loan Specialist Relationship Specialty Start Date End Date Elena Bullock APRN [address] [place] [address] PCP - General Family Medicine 09/20/17 documented as of this encounter
--- OUTSIDE RECORDS SUMMARY | 2024-03-28 08:24 | XMS_ITS | Encounter Summary ---
Author Organization [facility] [place] [address] Care Team Providers Care Memorial Adviser Name Role Phone Elena Bullock APRN Primary Care Provider Encounter Details Date Type Department Care Team (Late st Contact Info) Description 09/22/2021 [place] [phone] Jaclyn Turk Cough due to PACO inhibitor (Primary Dx) Social History Tobacco Use Types [...] 06/07/2024 9:00 AM EST [place]ointment [place] [address] 06/07/2024 11:00 AM EST [place] [address] Braydon Lunsford MD [facility] [place] [address] documented as of this encounter Visit Diagnoses Diagnosis Cough due to PACO inhibitor- Primary Cough documented in this encounter Care Teams Memorial Adviser Relationship Specialty Start Date End Date Elena Bullock APRN [address] [place], [place] [address] PCP - General Family Medicine 09/20/17 documented as of this encounter
[2024-03-28 08:42] LABS: Hemoglobin A1C 6.2 % (<5.7)
[2024-03-28 08:47] LABS: Anion Gap 9.8 mmol/L (3-11); BUN 9 mg/dL (7-18); CO2 27.2 mmol/L (21.0-32.0); CREATININE 0.9 mg/dL (0.70-1.30); Calcium 9.2 mg/dL (8.5-10.1); Calculated LDL 119 mg/dL (<100); Chloride 105 mmol/L (98-107); Cholesterol 182 mg/dL (<200); Estimated GFR 94.78 (mL/min/1.73m2); Glucose 112 mg/dL (74-106); HDL Cholesterol 39 mg/dL (40-60); Potassium 4.1 mmol/L (3.5-5.1); Sodium 142 mmol/L (136-145); Triglyceride 122 mg/dL (<150)
[2024-03-28 20:27] LABS: PSA, Diagnostic 0.8 ng/mL (<=4.5)
== END 2024-03-28 08:21 | disposition home or self-care (01) ==
LOC: LBO 08:20
PROVIDERS: PCP Nurse Practitioner Family; Visit Provider Emergency Medicine
DX: E11.9 Type 2 diabetes mellitus without complications (principal); N40.1 Benign prostatic hyperplasia with lower urinary tract symptoms; R35.1 Nocturia; E78.5 Hyperlipidemia, unspecified; I10 Essential (primary) hypertension
CPT/HCPCS: 36415; 80048; 80061; 83036; 84153

== ENCOUNTER 2025-03-20 08:58 | Outpatient (CLI) | payer MEDICARE, SELFPAY ==
[2025-03-20 14:22] LABS: Hemoglobin A1C 6.0 % (<5.7)
[2025-03-20 23:57] LABS: PSA, Screening 0.4 ng/mL (<=4.5)
== END 2025-03-20 08:59 | disposition home or self-care (01) ==
PROVIDERS: PCP Nurse Practitioner Family; Visit Provider Nurse Practitioner Family
DX: Z12.5 Encounter for screening for malignant neoplasm of prostate (principal); R73.03 Prediabetes
CPT/HCPCS: 36415; 84153; 83036

== ENCOUNTER → 2025-04-15 09:48 | Outpatient (BNVA) | payer MEDICARE, SELFPAY | PROVIDERS: PCP Nurse Practitioner Family; Referring Provider Nurse Practitioner Family; Visit Provider Internal Medicine Pulmonary Disease | DX: J84.9 Interstitial pulmonary disease, unspecified (principal); J98.4 Other disorders of lung; R06.00 Dyspnea, unspecified | CPT/HCPCS: 99205; 94618; 36415 ==

== ENCOUNTER 2025-04-15 14:46 | Outpatient (REF) | payer MEDICARE, SELFPAY ==
[2025-04-15 12:05] LABS: C-Reactive Protein 0.55 mg/dL (<=0.50); Creatine Kinase 89 U/L (46-171)
[2025-04-15 12:06] LABS: ALT 30 U/L (10-49); AST 30 U/L (<34); Albumin 4.3 g/dL (3.4-5.0); Alkaline Phosphatase 60 U/L (46-116); Anion Gap 9.1 mmol/L (3-11); BUN 13 mg/dL (9-23); Bilirubin, Total 0.40 mg/dL (0.2-1.2); CO2 26.9 mmol/L (20.0-31.0); Calcium 9.4 mg/dL (8.3-10.6); Chloride 104 mmol/L (98-107); Glucose 97 mg/dL (74-106); Potassium 4.0 mmol/L (3.5-5.1); Sodium 140 mmol/L (136-145); Total Protein 7.9 g/dL (5.7-8.2)
[2025-04-16 10:45] LABS: RNP Ab, IgG <6.0 CU (<20.0); Ro60 Ab, IgG <7.0 CU (<20.0); SS-A/Ro, IgG 4.1 CU (<20.0); SS-B (La) Ab, IgG <3.3 CU (<20.0)
[2025-04-17 13:16] LABS: JO 1 Ab, IgG <0.2 U; Scl 70 Antibodies, IgG <0.2 U; Sm (Smith) Ab, IgG <0.2 U
== END 2025-04-15 14:47 | disposition home or self-care (01) ==
LOC: LBN 14:46
PROVIDERS: PCP Nurse Practitioner Family; Visit Provider Internal Medicine Pulmonary Disease
DX: R06.00 Dyspnea, unspecified (principal); J84.9 Interstitial pulmonary disease, unspecified
CPT/HCPCS: 80053; 82550; 85652; 86200; 86038; 86140; 86225; 86235

== ENCOUNTER → 2025-04-29 09:25 | Outpatient (BNVA) | payer MEDICARE, SELFPAY | PROVIDERS: PCP Nurse Practitioner Family; Referring Provider Nurse Practitioner Family; Visit Provider Internal Medicine Pulmonary Disease | DX: J84.9 Interstitial pulmonary disease, unspecified (principal); R06.00 Dyspnea, unspecified; J98.4 Other disorders of lung | CPT/HCPCS: 99214 ==